=== PATIENT | male | born 1965 | race Caucasian/White ===

== ENCOUNTER 2018-10-27 12:39 | Inpatient (IN) | payer BC ==
[~2018-10-27] VITALS: Ht 193 cm; Wt 111.2 kg
[2018-10-27] MEDS ORDERED: IPRATRPIUM/ALBUTEROL 0.5/2.5MG 3 ML NEBU. NEB ONE (14:00)
[2018-10-27] MEDS ORDERED: methylPREDNISolone SOD SUCC PF 125 MG/2 ML VIAL. IV ONE (14:00)
[2018-10-27 14:14] LABS: BASO # 0.1 x10^3/uL (0.0-0.2); BASO % 1 % (0-3); EOS % 0 % (0-3); HEMATOCRIT 36.1 % (39.0-53.0); HEMOGLOBIN 11.8 g/dL (13.0-17.5); LYMPH # 0.2 x10^3/uL (1.0-4.8); LYMPH % 3 % (24-48); MEAN CORPUSCULAR HEMOGLOBIN 26 pg (25-35); MEAN CORPUSCULAR HGB CONC 33 g/dL (31-37); MEAN CORPUSCULAR VOLUME 81 fL (79-100); MONO # 0.1 x10^3/uL (0.0-1.1); MONO % 2 % (0-9); NEUT # 8.7 x10^3uL (1.8-7.7); NEUT % 95 % (31-73); PLATELET COUNT 203 x10^3/uL (140-400); RED BLOOD COUNT 4.49 x10^6/uL (4.30-5.70); RED CELL DISTRIBUTION WIDTH 17.6 % (11.5-14.5); WHITE BLOOD COUNT 9.2 x10^3/uL (4.0-11.0)
[2018-10-27] MEDS ORDERED: LABETALOL 20 MG/4 ML DISP.SYRIN. IVP ONE ×2 (14:15→18:15)
[2018-10-27 14:23] LABS: PROTHROMBIN TIME PATIENT 12.4 SEC (11.7-14.0)
[2018-10-27 14:30] LABS: CALCIUM 9.2 mg/dL (8.5-10.1); CREATININE 0.9 mg/dL (0.7-1.3); GFR 87.6; POTASSIUM 3.6 mmol/L (3.5-5.1)
--- NOTE | 2018-10-27 14:32 | RAD ---
EXAM: Chest, single view. HISTORY: Difficulty breathing. Chest pain. COMPARISON: None. FINDINGS: A frontal view of the chest obtained. There is elevation of the right hemidiaphragm and suspected right basilar compressive atelectasis. There is no consolidation, pleural effusion or pneumothorax. The heart is normal in size. There is internal fixation of a left clavicle fracture. There is a healed right rib fracture. IMPRESSION: 1. Elevation of the right hemidiaphragm with suspected right basilar compressive atelectasis. 2. No acute pulmonary finding. Electronically signed by: Viri Mcdaniels MD (10/27/2018 2:29 PM) [place] [id number]
[2018-10-27 14:35] LABS: % BANDS 20 % (0-9); % EOS 1 % (0-5); % LYMPHS 2 % (24-48); % MONOS 1 % (0-10); % SEGS 76 % (35-66); ALBUMIN 3.7 g/dL (3.4-5.0); ALBUMIN/GLOBULIN RATIO 0.8 (1.0-1.7); MAGNESIUM 1.8 mg/dL (1.8-2.4); PLT ESTIMATE ADEQUATE (ADEQUATE); TOTAL BILIRUBIN 0.9 mg/dL (0.2-1.0); TOTAL PROTEIN 8.6 g/dL (6.4-8.2)
[2018-10-27 14:38] LABS: ANISOCYTOSIS SLIGHT
[2018-10-27] MEDS ORDERED: IV NORMAL SALINE 1000ML BAG 1,000 ML IV ONE ×3 (15:00→17:00)
--- NOTE | 2018-10-27 15:40 | EKG ---
[facility] [address] [place] [address] Test Date: 2018-10-27 Test Time: 14:07:13 Pat Name: TACHO VILLATORO Department: Room: Gender: M Visual Merchandising Associate: IZZY : 1965 Requested By: ZACHARY PRATT Order Number: [id number] Reading MD: Kamar Harris Measurements Intervals [place] Rate: 125 P: -93 [place]: 170 QRS: -83 QRSD: 92 T: 22 QT: 304 QTc: 441 Interpretive Statements SINUS TACHYCARDIA ABNORMAL LEFT AXIS DEVIATION INCOMPLETE RIGHT BUNDLE BRANCH BLOCK QRS(T) CONTOUR ABNORMALITY CONSISTENT WITH INFERIOR INFARCT PROBABLY OLD ABNORMAL ECG Electronically Signed On 11-03-2018 12:59:58 CDT by Kamar Harris
[2018-10-27 15:47] LABS: BASE EXCESS ABG -1 mmol/L (-3-3); HCO3 ABG 21 mmol/L (21-28); PCO2 ABG 27 mmHg (35-46); PO2 ABG 69 mmHg (75-108); SAT O2 ABG 94 % (92-99)
[2018-10-27 15:48] LABS: FIO2 ABG 32% NC
[2018-10-27] MEDS ORDERED: cefTRIAXone IV Push 1 GM VIAL. IVP ONE (16:00)
[2018-10-27] MEDS ORDERED: VANCOMYCIN PER PHARMACY MC PRN (16:00)
[2018-10-27] MEDS ORDERED: VANCOMYCIN 2 GM in IV NORMAL SALINE 500ML BAG 500 ML IV ONE (16:30)
[2018-10-27] MEDS ORDERED: IOHEXOL 350 MG/ML 100 ML VIAL. IV ONE (16:45)
[2018-10-27] MEDS ORDERED: CONTRAST GIVEN. MC PRN (16:45)
[2018-10-27] MEDS ORDERED: MORPHINE SULFATE 2 MG/ML VIAL. IV PRN (17:00)
[2018-10-27] MEDS ORDERED: ONDANSETRON PF 4 MG/2 ML VIAL. IV PRN (17:00)
--- NOTE | 2018-10-27 17:30 | RAD ---
Chest CTA History: Shortness of breath for one week Technique: After bolus of intravenous contrast, CT imaging was performed of the chest. Multiplanar reconstruction images to include MIP reconstruction images are submitted. Exposure: One or more of the following individualized dose reduction techniques were utilized for this examination: 1. Automated exposure control 2. Adjustment of the mA and/or kV according to patient size 3. Use of iterative reconstruction technique. Comparison: None Findings: [ ] There is some motion. There is suboptimal contrast opacification of the more distal and smaller pulmonary arteries. No central pulmonary embolism is identified such as of the main pulmonary arteries or proximal segmental branches. There is some coronary calcification. Ascending thoracic aorta is somewhat ectatic about 3.7 cm. There is no pleural or pericardial effusion. There is mild infiltrate of the right lower lobe. There are some small mediastinal nodes. There is diffuse hepatic steatosis. There is degree of elevation of the right hemidiaphragm. There is mild perihilar bronchial wall thickening. There may be right renal calculi, more dense than would be expected at this phase of injection. Impression: 1. No central pulmonary embolism is identified, somewhat limited evaluation for smaller and more peripheral emboli on this exam. 2. There is mild right lower lobe infiltrate. There is mild perihilar bronchial wall thickening, can be seen with bronchitis. 3. There is some coronary calcification. 4. There is slightly ectatic ascending thoracic aorta about 3.7 cm. 5. There is diffuse hepatic steatosis. 6. There may be right renal calculi. Electronically signed by: Narendra Jorgensen MD (10/27/2018 5:27 PM) [facility]
--- NOTE | 2018-10-27 18:07 | PHYS DOC ---
Past Medical History Past Medical History: Hypertension, Other Additional Past Medical Histor: SEASONAL ALLERGIES Past Surgical History: Other Additional Past Surgical Histo: SHOULDER,R ANKLE FUSION,HERNIA Alcohol Use: Occasionally Drug Use: None Adult General Chief Complaint Chief Complaint: SHORTNESS OF BREATH HPI HPI Patient is a 53 year old male with history of hypertension who presents to the ED today complaining of shortness of breath that has been going on for one week with cough patient denies any fever. Denies any history of smoking. He states he does not have a PCP and never follows up with his hypertension. He states the last time he took blood pressure medication was 1 year ago. He states his lungs hurt when he coughs. Review of Systems Review of Systems Constitutional: Denies fever or chills [] Eyes: Denies change in visual acuity, redness, or eye pain [] HENT: Denies nasal congestion or sore throat [] Respiratory: Reports cough and shortness of breath Cardiovascular: No additional information not addressed in HPI [] GI: Denies abdominal pain, nausea, vomiting, bloody stools or diarrhea [] : Denies dysuria or hematuria [] Musculoskeletal: Denies back pain or joint pain [] Integument: Denies rash or skin lesions [] Neurologic: Denies headache, focal weakness or sensory changes [] All other systems were reviewed and found to be within normal limits, except as documented in this note. Current Medications Current Medications Current Medications Medications (Trade) Dose Ordered Sig/Jennifer Start Time Stop Time Status Last Admin Dose Admin Albuterol/ Ipratropium (Duoneb) 3 ml 1X ONCE 10/27/18 14:00 10/27/18 14:01 DC 10/27/18 14:03 3 ML Ceftriaxone Sodium (Rocephin) 1 gm 1X ONCE 10/27/18 16:00 10/27/18 16:01 DC 10/27/18 16:03 1 GM Doxycycline Hyclate (Vibra-Tab) 100 mg BID 10/27/18 21:00 Info (CONTRAST GIVEN -- Rx MONITORING) 1 each PRN DAILY PRN 10/27/18 16:45 10/29/18 16:44 Iohexol (Omnipaque 350 Mg/ml) 100 ml 1X ONCE 10/27/18 16:45 10/27/18 16:46 DC 10/27/18 16:54 100 ML Labetalol HCl (Normodyne Iv Push) 10 mg 1X ONCE 10/27/18 14:15 10/27/18 14:16 DC 10/27/18 14:34 10 MG Methylprednisolone Sodium Succinate (SOLU-Medrol 125MG VIAL) 125 mg 1X ONCE 10/27/18 14:00 10/27/18 14:01 DC 10/27/18 14:10 125 MG Morphine Sulfate (Morphine Sulfate) 2 mg PRN Q2HR PRN 10/27/18 17:00 10/28/18 16:59 Ondansetron HCl (Zofran) 4 mg PRN Q8HRS PRN 10/27/18 17:00 10/28/18 16:59 Sodium Chloride 1,000 ml @ 125 mls/hr 1X ONCE 10/27/18 17:00 10/28/18 00:59 Vancomycin HCl (Vanco Per Pharmacy) 1 each PRN DAILY PRN 10/27/18 16:00 UNV Vancomycin HCl 2 gm/Sodium Chloride 500 ml @ 250 mls/hr 1X ONCE 10/27/18 16:30 10/27/18 18:29 10/27/18 16:02 250 MLS/HR Allergies Allergies Allergies Coded Allergies Type Severity Reaction Last Updated Verified clarithromycin Allergy Intermediate 10/27/18 Yes Physical Exam Physical Exam Constitutional: Well developed, well nourished, no acute distress, non-toxic appearance. [] HENT: Normocephalic, atraumatic, bilateral external ears normal, oropharynx moist, no oral exudates, nose normal. [] Eyes: PERRLA, EOMI, conjunctiva normal, no discharge. [] Neck: Normal range of motion, no tenderness, supple, no stridor. [] Cardiovascular:Heart rate regular rhythm, no murmur [] Lungs & Thorax: Diminished breath sounds on arrival to the ED. O2 sats were 88 on room air, patient was placed on oxygen 2 L. Abdomen: Bowel sounds normal, soft, no tenderness, no masses, no pulsatile masses. [] Skin: Warm, dry, no erythema, no rash. [] Back: No tenderness, no CVA tenderness. [] Extremities: No tenderness, no cyanosis, no clubbing, ROM intact, no edema. [] Neurologic: Alert and oriented X 3, normal motor function, normal sensory function, no focal deficits noted. [] Psychologic: Affect normal, judgement normal, mood normal. [] Current Patient Data Vital Signs Vital Signs Date Time Temp Pulse Resp B/P (MAP) Pulse Ox O2 Delivery O2 Flow Rate FiO2 10/27/18 16:18 98 21 203/98 (133) 92 Nasal Cannula 3.0 10/27/18 13:49 98.9 98.9 Lab Values Laboratory Tests Test 10/27/18 13:57 10/27/18 15:45 White Blood Count 9.2 x10^3/uL (4.0-11.0) Red Blood Count 4.49 x10^6/uL (4.30-5.70) Hemoglobin 11.8 g/dL (13.0-17.5) L Hematocrit 36.1 % (39.0-53.0) L Mean Corpuscular Volume 81 fL (79-100) Mean Corpuscular Hemoglobin 26 pg (25-35) Mean Corpuscular Hemoglobin Concent 33 g/dL (31-37) Red Cell Distribution Width 17.6 % (11.5-14.5) H Platelet Count 203 x10^3/uL (140-400) Neutrophils (%) (Auto) 95 % (31-73) H Lymphocytes (%) (Auto) 3 % (24-48) L Monocytes (%) (Auto) 2 % (0-9) Eosinophils (%) (Auto) 0 % (0-3) Basophils (%) (Auto) 1 % (0-3) Neutrophils # (Auto) 8.7 x10^3uL (1.8-7.7) H Lymphocytes # (Auto) 0.2 x10^3/uL (1.0-4.8) L Monocytes # (Auto) 0.1 x10^3/uL (0.0-1.1) Eosinophils # (Auto) 0.0 x10^3/uL (0.0-0.7) Basophils # (Auto) 0.1 x10^3/uL (0.0-0.2) Segmented Neutrophils % 76 % (35-66) H Band Neutrophils % 20 % (0-9) H Lymphocytes % 2 % (24-48) L Monocytes % 1 % (0-10) Eosinophils % 1 % (0-5) Platelet Estimate Adequate (ADEQUATE) Anisocytosis Slight Prothrombin Time 12.4 SEC (11.7-14.0) Prothrombin Time INR 1.0 (0.8-1.1) D-Dimer (Marilin) 1.23 ug/mlFEU (0.00-0.50) H Sodium Level 128 mmol/L (136-145) L Potassium Level 3.6 mmol/L (3.5-5.1) Chloride Level 88 mmol/L (98-107) L Carbon Dioxide Level 25 mmol/L (21-32) Anion Gap 15 (6-14) H Blood Urea Nitrogen 6 mg/dL (8-26) L Creatinine 0.9 mg/dL (0.7-1.3) Estimated GFR (Cockcroft-Gault) 87.6 BUN/Creatinine Ratio 7 (6-20) Glucose Level 125 mg/dL (70-99) H Lactic Acid Level 2.6 mmol/L (0.4-2.0) H Calcium Level 9.2 mg/dL (8.5-10.1) Magnesium Level 1.8 mg/dL (1.8-2.4) Total Bilirubin 0.9 mg/dL (0.2-1.0) Aspartate Amino Transferase (AST) 252 U/L (15-37) H Alanine Aminotransferase (ALT) 138 U/L (16-63) H Alkaline Phosphatase 115 U/L (46-116) Creatine Kinase 326 U/L (39-308) H Creatine Kinase MB (Mass) 0.9 ng/mL (0.0-3.6) Creatine Kinase MB Relative Index 0.3 % (0-4) Troponin I Quantitative < 0.017 ng/mL (0.000-0.055) AI-Don-F-Type Natriuretic Peptide 440 pg/mL (0-124) H Total Protein 8.6 g/dL (6.4-8.2) H Albumin 3.7 g/dL (3.4-5.0) Albumin/Globulin Ratio 0.8 (1.0-1.7) L Thyroid Stimulating Hormone (TSH) 2.018 uIU/mL (0.358-3.74) O2 Saturation 94 % (92-99) Arterial Blood pH 7.51 (7.35-7.45) H Arterial Blood pCO2 at Patient Temp 27 mmHg (35-46) L Arterial Blood pO2 at Patient Temp 69 mmHg (75-108) L Arterial Blood HCO3 21 mmol/L (21-28) Arterial Blood Base Excess -1 mmol/L (-3-3) FiO2 32% nc Laboratory Tests 10/27/18 13:57 Laboratory Tests 10/27/18 13:57 EKG EKG 14:09 intepreted by Hung Chan sinus tachycardia HR 125 no STEMI[] Radiology/Procedures Radiology/Procedures []PROCEDURE: CT ANGIOGRAPHY CHEST Chest CTA History: Shortness of breath for one week Technique: After bolus of intravenous contrast, CT imaging was performed of the chest. Multiplanar reconstruction images to include MIP reconstruction images are submitted. Exposure: One or more of the following individualized dose reduction techniques were utilized for this examination: 1. Automated exposure control 2. Adjustment of the mA and/or kV according to patient size 3. Use of iterative reconstruction technique. Comparison: None Findings: [ ] There is some motion. There is suboptimal contrast opacification of the more distal and smaller pulmonary arteries. No central pulmonary embolism is identified such as of the main pulmonary arteries or proximal segmental branches. There is some coronary calcification. Ascending thoracic aorta is somewhat ectatic about 3.7 cm. There is no pleural or pericardial effusion. There is mild infiltrate of the right lower lobe. There are some small mediastinal nodes. There is diffuse hepatic steatosis. There is degree of elevation of the right hemidiaphragm. There is mild perihilar bronchial wall thickening. There may be right renal calculi, more dense than would be expected at this phase of injection. Impression: 1. No central pulmonary embolism is identified, somewhat limited evaluation for smaller and more peripheral emboli on this exam. 2. There is mild right lower lobe infiltrate. There is mild perihilar bronchial wall thickening, can be seen with bronchitis. 3. There is some coronary calcification. 4. There is slightly ectatic ascending thoracic aorta about 3.7 cm. 5. There is diffuse hepatic steatosis. 6. There may be right renal calculi. Electronically signed by: Dajuan Jorgensen MD (10/27/2018 5:27 PM) [facility] DICTATED and SIGNED BY: DAJUAN JORGENSEN MD DATE: 10/27/18 4423 Course & Med Decision Making Course & Med Decision Making Pertinent Labs and Imaging studies reviewed. (See chart for details) This is a 53-year-old male patient presenting to the ED today complaining of shortness of breath and a cough that began a week ago. On arrival to the ED patient was short of air with O2 sats 88% on room air. Patient was placed on oxygen 2 L. O2 sats of 93%. Given a DuoNeb treatment. CBC with a normal WBC, hemoglobin 11.8 hematocrit 36.0, CMP with sodium of 128, patient is alert oriented, following directions well, was started on normal saline, glucose 125, anion gap is 15, AST 252 ALT 138, patient denies any abdominal pain though we ordered an ultrasound of the abdomen. Chest x-ray was negative for any acute findings, d-dimer was 1.23, CTA chest was done, negative for PE, noted for right lower lobe infiltrate. Lactic 2.6. Blood cultures were also drawn. IV fluids continued, patient started on Rocephin and vancomycin. Spoke with Dr. Maciel who accepted patient for admission. Temperature not arrival to the ED 98.9, blood pressure 221/124 with a heart rate in the 130s. Patient was also given labetalol. He has history of uncontrolled hypertension. He has no headache. Spoke with Dr. Wallace regarding patient's hyponatremia. She will follow-up with patient. Dragon Disclaimer Dragon Disclaimer This electronic medical record was generated, in whole or in part, using a voice recognition dictation system. Departure Departure Impression: Primary Impression: Right lower lobe pneumonia Additional Impressions: Shortness of breath Hyponatremia Tachycardia Hypertension Disposition: 09 ADMITTED INPATIENT Condition: STABLE Referrals: Maryam DASILVA MD (PCP) Problem Qualifiers Primary Impression: Right lower lobe pneumonia Pneumonia type: due to unspecified organism Qualified Codes: J18.1 - Lobar pneumonia, unspecified organism Additional Impressions: Hypertension Hypertension type: unspecified Qualified Codes: I10 - Essential (primary) hypertension ZACHARY PRATT [employer] Oct 27, 2018 18:06
[2018-10-27] MEDS ORDERED: cloNIDine HCL 0.1 MG TABLET ONE (18:12)
[2018-10-27] MEDS ORDERED: cloNIDine HCL 0.1 MG TABLET PO ONE (18:15)
[2018-10-27 18:27] LABS: BILIRUBIN,URINE NEGATIVE (NEG); CLARITY,URINE CLEAR; COLOR,URINE YELLOW; NITRITE,URINE NEGATIVE (NEG); PH,URINE 7.5; PROTEIN,URINE NEGATIVE (NEG-TRACE); UROBILINOGEN,URINE 0.2 mg/dL (0.2 mg/dL)
[2018-10-27 18:33] LABS: BACTERIA,URINE 0 /HPF (0-FEW); RBC,URINE 0 /HPF (0-2); WBC,URINE 0 /HPF (0-4)
--- NOTE | 2018-10-27 18:39 | NUR ---
Pharmacy Vancomycin Dosing Note S:Consulted to monitor and dose vancomycin started 10/27/18. O:TACHO VILLATORO is a 53 year old M with Pneumonia Height: 6 feet, 4 inches Weight: 113.4 kg [place] Body Weight: 86.80 Adjusted Body Weight: 97.44 Dosing Weight: Actual LABS: Last BUN: 6 Last Creatinine: 0.9 Creatinine Clearance: >100 mL/min Last WBC: 9.2 Last Procalcitonin: Tmax (past 24 hours): 98.9 I/O: 2000/500 Last dose given 10/27/18 at 1604 Vancomycin Dosing: Loading Dose: 2000 mg x1 Dosing Weight: Actual Target Trough: 15-20 A: Based on: weight and renal function P: 1. Begin Vancomycin 2000 mg IV q12h 2. Follow up Trough level on 10/29/18 at 0330 3. Pharmacy will continue to monitor, follow and adjust therapy as needed. Marysol Lagunas [facility], 10/27/18 [id number]
[2018-10-27 18:45] VITALS: BP 224/110
[2018-10-27] MEDS: IV NORMAL SALINE 1000ML BAG 1,000 ML IV SCH (19:00)
[2018-10-27 19:30] VITALS: BP 180/108
[2018-10-27] MEDS ORDERED: GABA300C18 PO (20:12)
[2018-10-27] MEDS ORDERED: LOSA100T14 PO (20:12)
[2018-10-27] MEDS ORDERED: CARV25TA PO (20:12)
[2018-10-27] MEDS: DOXYCYCLINE HYCLATE 100 MG TABLET PO SCH (20:56)
[2018-10-27] MEDS: cloNIDine HCL 0.1 MG TABLET PO PRN (20:57)
[2018-10-27] MEDS ORDERED: DOXYCYCLINE HYCLATE 100 MG TABLET PO SCH (21:00)
--- NOTE | 2018-10-27 21:13 | PDOC1 ---
History and Physical Date of Admission Date of Admission DATE: 10/27/18 TIME: 20:57 Identification/Chief Complaint Chief Complaint sob Problems: (1) Shortness of breath (2) Right lower lobe pneumonia Source Source: Patient History of Present Illness History of Present Illness 53 year old male with history of hypertension not currently taking meds who presents with SOB on exertion and at rest with associated cough and congestion. patient does not have a PCP. does not take BP meds anymore, last took over a year ago. reports decreased PO intake. no nausea vomiting diarrhea. denies hx of COPD or CHF. scheduled for Left Hip sx 11/[address] chest concerning for PNA. also found to have elevated BNP 440 hospitalist called for admission Past Medical History Past Medical History HTN, untreated Past Surgical History Past Surgical History denies Family History Family History denies Social History Smoke: No ALCOHOL: none Drugs: None Current Problem List Problem List Problems Medical Problems: (1) Hypertension Status: Acute (2) Hyponatremia Status: Acute (3) Right lower lobe pneumonia Status: Acute (4) Shortness of breath Status: Acute (5) Tachycardia Status: Acute Current Medications Current Medications Current Medications Albuterol/ Ipratropium (Duoneb) 3 ml 1X ONCE NEB Last administered on at 14:03; Start 10/27/18 at 14:00; Stop 10/27/18 at 14:01; Status DC Methylprednisolone Sodium Succinate (SOLU-Medrol 125MG VIAL) 125 mg 1X ONCE IV Last administered on 10/27/18at 14:10; Start 10/27/18 at 14:00; Stop 10/27/18 at 14:01; Status DC Labetalol HCl (Normodyne Iv Push) 10 mg 1X ONCE IVP Last administered on at 14:34; Start 10/27/18 at 14:15; Stop 10/27/18 at 14:16; Status DC Sodium Chloride 1,000 ml @ 1,000 mls/hr 1X ONCE IV Last administered on at 15:20; Start 10/27/18 at 15:00; Stop 10/27/18 at 15:59; Status DC Sodium Chloride 1,000 ml @ 1,000 mls/hr 1X ONCE IV Last administered on at 16:01; Start 10/27/18 at 15:45; Stop 10/27/18 at 16:44; Status DC Vancomycin HCl (Vanco Per Pharmacy) 1 each PRN DAILY PRN MC SEE COMMENTS Last administered on 10/27/18at 18:37; Start 10/27/18 at 16:00 Ceftriaxone Sodium (Rocephin) 1 gm 1X ONCE IVP Last administered on 10/27/18at 16:03; Start 10/27/18 at 16:00; Stop 10/27/18 at 16:01; Status DC Vancomycin HCl 2 gm/Sodium Chloride 500 ml @ 250 mls/hr 1X ONCE IV Last administered on 10/27/18at 16:02; Start 10/27/18 at 16:30; Stop 10/27/18 at 18:29 ; Status DC Doxycycline Hyclate (Vibra-Tab) 100 mg BID PO ; Start 10/27/18 at 21:00 Iohexol (Omnipaque 350 Mg/ml) 100 ml 1X ONCE IV Last administered on at 16:54; Start 10/27/18 at 16:45; Stop 10/27/18 at 16:46; Status DC Info (CONTRAST GIVEN -- Rx MONITORING) 1 each PRN DAILY PRN MC SEE COMMENTS; Start 10/27/18 at 16:45; Stop 10/29/18 at 16:44 Ondansetron HCl (Zofran) 4 mg PRN Q8HRS PRN IV NAUSEA/VOMITING; Start 10/27/18 at 17:00; Stop 10/28/18 at 16:59 Morphine Sulfate (Morphine Sulfate) 2 mg PRN Q2HR PRN IV PAIN; Start 10/27/18 at 17:00; Stop 10/28/18 at 16:59 Sodium Chloride 1,000 ml @ 125 mls/hr 1X ONCE IV ; Start 10/27/18 at 17:00; Stop 10/28/18 at 00:59 Labetalol HCl (Normodyne Iv Push) 10 mg 1X ONCE IVP Last administered on at 18:15; Start 10/27/18 at 18:15; Stop 10/27/18 at 18:16; Status DC Clonidine HCl (Catapres) 0.1 mg 1X ONCE PO Last administered on 10/27/18at 18: 15; Start 10/27/18 at 18:15; Stop 10/27/18 at 18:16; Status DC Clonidine HCl (Catapres) 0.1 mg PRN Q8HRS PRN PO HYPERTENSION, SEE COMMENTS; Start 10/27/18 at 18:15 Clonidine HCl (Catapres) 0.1 mg STK-MED ONCE .ROUTE ; Start 10/27/18 at 18:12; Stop 10/27/18 at 18:13; Status DC Vancomycin HCl 2 gm/Sodium Chloride 500 ml @ 250 mls/hr Q12H IV ; Start at 04:00 Vancomycin HCl (Vancomycin Trough Level) 1 each 1X ONCE MC ; Start 10/29/18 at 03:30; Stop 10/29/18 at 03:31 Sodium Chloride 1,000 ml @ 100 mls/hr Q10H IV Last administered on 10/27/18at 19:00; Start 10/27/18 at 19:00 Heparin Sodium (Porcine) (Heparin Sodium) 5,000 unit Q8HRS SQ ; Start 10/27/18 at 22:00; Status UNV Active Scripts Active Reported Coreg (Carvedilol) 25 Mg Tablet 12.5 Mg PO BIDWMEALS Losartan Potassium 100 Mg Tablet 100 Mg PO DAILY Gabapentin 300 Mg Capsule 300 Mg PO TID Allergies Allergies: Coded Allergies: clarithromycin (Verified Allergy, Intermediate, 10/27/18) ROS Review of System CONSTITUTIONAL: No fever or chills EYES: No recent changes SKIN: No rash or itching CARDIOVASCULAR: No chest pain, syncope, palpitations, or edema RESPIRATORY: No SOB or cough GASTROINTESTINAL: No nausea, vomiting or abdominal pain NEUROLOGICAL: No headaches or weakness ENDOCRINE: No cold or heat intolerance GENITOURINARY: No urgency or frequency of urination MUSCULOSKELETAL: No back pain or joint pain LYMPHATICS: No enlarged lymph nodes PSYCHIATRIC: No anxiety or depression Physical Exam Physical Exam GENERAL: No apparent distress. Alert and oriented. HEENT: Head normocephalic, atraumatic. NECK: Supple LUNGS: course bilaterally HEART: RRR, S1, S2 present, pulses intact ABDOMEN: Soft, positive bowel sounds. EXTREMITIES: No cyanosis or edema. NEUROLOGIC: Normal speech, normal tone PSYCHIATRIC: Normal affect, normal mood. SKIN: No ulceration. Vitals Vitals Vital Signs Date Time Temp Pulse Resp B/P (MAP) Pulse Ox O2 Delivery O2 Flow Rate FiO2 10/27/18 19:52 Nasal Cannula 3.0 10/27/18 19:30 82 180/108 (132) 10/27/18 18:45 98.1 20 93 98.1 Labs Labs Laboratory Tests Test 10/27/18 13:57 10/27/18 15:45 10/27/18 17:40 10/27/18 18:00 White Blood Count 9.2 x10^3/uL (4.0-11.0) Red Blood Count 4.49 x10^6/uL (4.30-5.70) Hemoglobin 11.8 g/dL (13.0-17.5) Hematocrit 36.1 % (39.0-53.0) Mean Corpuscular Volume 81 fL (79-100) Mean Corpuscular Hemoglobin 26 pg (25-35) Mean Corpuscular Hemoglobin Concent 33 g/dL (31-37) Red Cell Distribution Width 17.6 % (11.5-14.5) Platelet Count 203 x10^3/uL (140-400) Neutrophils (%) (Auto) 95 % (31-73) Lymphocytes (%) (Auto) 3 % (24-48) Monocytes (%) (Auto) 2 % (0-9) Eosinophils (%) (Auto) 0 % (0-3) Basophils (%) (Auto) 1 % (0-3) Neutrophils # (Auto) 8.7 x10^3uL (1.8-7.7) Lymphocytes # (Auto) 0.2 x10^3/uL (1.0-4.8) Monocytes # (Auto) 0.1 x10^3/uL (0.0-1.1) Eosinophils # (Auto) 0.0 x10^3/uL (0.0-0.7) Basophils # (Auto) 0.1 x10^3/uL (0.0-0.2) Segmented Neutrophils % 76 % (35-66) Band Neutrophils % 20 % (0-9) Lymphocytes % 2 % (24-48) Monocytes % 1 % (0-10) Eosinophils % 1 % (0-5) Platelet Estimate Adequate (ADEQUATE) Anisocytosis Slight Prothrombin Time 12.4 SEC (11.7-14.0) Prothromb Time International Ratio 1.0 (0.8-1.1) D-Dimer (Marilin) 1.23 ug/mlFEU (0.00-0.50) Sodium Level 128 mmol/L (136-145) Potassium Level 3.6 mmol/L (3.5-5.1) Chloride Level 88 mmol/L (98-107) Carbon Dioxide Level 25 mmol/L (21-32) Anion Gap 15 (6-14) Blood Urea Nitrogen 6 mg/dL (8-26) Creatinine 0.9 mg/dL (0.7-1.3) Estimated GFR (Cockcroft-Gault) 87.6 BUN/Creatinine Ratio 7 (6-20) Glucose Level 125 mg/dL (70-99) Lactic Acid Level 2.6 mmol/L (0.4-2.0) 1.5 mmol/L (0.4-2.0) Calcium Level 9.2 mg/dL (8.5-10.1) Magnesium Level 1.8 mg/dL (1.8-2.4) Total Bilirubin 0.9 mg/dL (0.2-1.0) Aspartate Amino Transf (AST/SGOT) 252 U/L (15-37) Alanine Aminotransferase (ALT/SGPT) 138 U/L (16-63) Alkaline Phosphatase 115 U/L (46-116) Creatine Kinase 326 U/L (39-308) Creatine Kinase MB (Mass) 0.9 ng/mL (0.0-3.6) Creatine Kinase MB Relative Index 0.3 % (0-4) Troponin I Quantitative < 0.017 ng/mL (0.000-0.055) EA-[id number]-Type Natriuretic Peptide 440 pg/mL (0-124) Total Protein 8.6 g/dL (6.4-8.2) Albumin 3.7 g/dL (3.4-5.0) Albumin/Globulin Ratio 0.8 (1.0-1.7) Thyroid Stimulating Hormone (TSH) 2.018 uIU/mL (0.358-3.74) O2 Saturation 94 % (92-99) Arterial Blood pH 7.51 (7.35-7.45) Arterial Blood pCO2 at Patient Temp 27 mmHg (35-46) Arterial Blood pO2 at Patient Temp 69 mmHg (75-108) Arterial Blood HCO3 21 mmol/L (21-28) Arterial Blood Base Excess -1 mmol/L (-3-3) FiO2 32% nc Urine Collection Type Unknown Urine Color Yellow Urine Clarity Clear Urine pH 7.5 Urine Specific [place] >=1.030 Urine Protein Negative mg/dL (NEG-TRACE) Urine Glucose (UA) 100 mg/dL (NEG) Urine Ketones (Stick) Trace mg/dL (NEG) Urine Blood Negative (NEG) Urine Nitrite Negative (NEG) Urine Bilirubin Negative (NEG) Urine Urobilinogen Dipstick 0.2 mg/dL (0.2 mg/dL) Urine Leukocyte Esterase Negative (NEG) Urine RBC 0 /HPF (0-2) Urine WBC 0 /HPF (0-4) Urine Bacteria 0 /HPF (0-FEW) Laboratory Tests Test 10/27/18 13:57 10/27/18 15:45 10/27/18 17:40 10/27/18 18:00 White Blood Count 9.2 x10^3/uL (4.0-11.0) Red Blood Count 4.49 x10^6/uL (4.30-5.70) Hemoglobin 11.8 g/dL (13.0-17.5) Hematocrit 36.1 % (39.0-53.0) Mean Corpuscular Volume 81 fL (79-100) Mean Corpuscular Hemoglobin 26 pg (25-35) Mean Corpuscular Hemoglobin Concent 33 g/dL (31-37) Red Cell Distribution Width 17.6 % (11.5-14.5) Platelet Count 203 x10^3/uL (140-400) Neutrophils (%) (Auto) 95 % (31-73) Lymphocytes (%) (Auto) 3 % (24-48) Monocytes (%) (Auto) 2 % (0-9) Eosinophils (%) (Auto) 0 % (0-3) Basophils (%) (Auto) 1 % (0-3) Neutrophils # (Auto) 8.7 x10^3uL (1.8-7.7) Lymphocytes # (Auto) 0.2 x10^3/uL (1.0-4.8) Monocytes # (Auto) 0.1 x10^3/uL (0.0-1.1) Eosinophils # (Auto) 0.0 x10^3/uL (0.0-0.7) Basophils # (Auto) 0.1 x10^3/uL (0.0-0.2) Segmented Neutrophils % 76 % (35-66) Band Neutrophils % 20 % (0-9) Lymphocytes % 2 % (24-48) Monocytes % 1 % (0-10) Eosinophils % 1 % (0-5) Platelet Estimate Adequate (ADEQUATE) Anisocytosis Slight Prothrombin Time 12.4 SEC (11.7-14.0) Prothromb Time International Ratio 1.0 (0.8-1.1) D-Dimer (Marilin) 1.23 ug/mlFEU (0.00-0.50) Sodium Level 128 mmol/L (136-145) Potassium Level 3.6 mmol/L (3.5-5.1) Chloride Level 88 mmol/L (98-107) Carbon Dioxide Level 25 mmol/L (21-32) Anion Gap 15 (6-14) Blood Urea Nitrogen 6 mg/dL (8-26) Creatinine 0.9 mg/dL (0.7-1.3) Estimated GFR (Cockcroft-Gault) 87.6 BUN/Creatinine Ratio 7 (6-20) Glucose Level 125 mg/dL (70-99) Lactic Acid Level 2.6 mmol/L (0.4-2.0) 1.5 mmol/L (0.4-2.0) Calcium Level 9.2 mg/dL (8.5-10.1) Magnesium Level 1.8 mg/dL (1.8-2.4) Total Bilirubin 0.9 mg/dL (0.2-1.0) Aspartate Amino Transf (AST/SGOT) 252 U/L (15-37) Alanine Aminotransferase (ALT/SGPT) 138 U/L (16-63) Alkaline Phosphatase 115 U/L (46-116) Creatine Kinase 326 U/L (39-308) Creatine Kinase MB (Mass) 0.9 ng/mL (0.0-3.6) Creatine Kinase MB Relative Index 0.3 % (0-4) Troponin I Quantitative < 0.017 ng/mL (0.000-0.055) XU-Sek-[id number]-Type Natriuretic Peptide 440 pg/mL (0-124) Total Protein 8.6 g/dL (6.4-8.2) Albumin 3.7 g/dL (3.4-5.0) Albumin/Globulin Ratio 0.8 (1.0-1.7) Thyroid Stimulating Hormone (TSH) 2.018 uIU/mL (0.358-3.74) O2 Saturation 94 % (92-99) Arterial Blood pH 7.51 (7.35-7.45) Arterial Blood pCO2 at Patient Temp 27 mmHg (35-46) Arterial Blood pO2 at Patient Temp 69 mmHg (75-108) Arterial Blood HCO3 21 mmol/L (21-28) Arterial Blood Base Excess -1 mmol/L (-3-3) FiO2 32% nc Urine Collection Type Unknown Urine Color Yellow Urine Clarity Clear Urine pH 7.5 Urine Specific [place] >=1.030 Urine Protein Negative mg/dL (NEG-TRACE) Urine Glucose (UA) 100 mg/dL (NEG) Urine Ketones (Stick) Trace mg/dL (NEG) Urine Blood Negative (NEG) Urine Nitrite Negative (NEG) Urine Bilirubin Negative (NEG) Urine Urobilinogen Dipstick 0.2 mg/dL (0.2 mg/dL) Urine Leukocyte Esterase Negative (NEG) Urine RBC 0 /HPF (0-2) Urine WBC 0 /HPF (0-4) Urine Bacteria 0 /HPF (0-FEW) VTE Prophylaxis Ordered VTE Prophylaxis Devices: Yes VTE Pharmacological Prophylaxi: Yes Assessment/Plan Assessment/Plan ASSESSMENT Acute Hypoxic Respiratory Failure Secondary to CAP, 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 uncontrolled and untreated BP check TTE check abdominal US check a1c check TSH repeat LFTS check acute viral panel dvt ppx: heparin full code Problem Qualifiers (1) Right lower lobe pneumonia: Pneumonia type: due to unspecified organism Qualified Codes: J18.1 - Lobar pneumonia, unspecified organism SILVIA WASHINGTON MD Oct 27, 2018 21:13
[2018-10-27] MEDS: GABAPENTIN 300 MG CAPSULE. PO SCH (21:20)
[2018-10-27] MEDS: HEPARIN for SUB-Q USE 5,000 UNIT/ML VIAL. SQ SCH (21:21)
--- NOTE | 2018-10-27 21:28 | RAD ---
Abdominal ultrasound complete: Reason for examination: Elevated liver function tests. Ultrasound examination of the abdomen was performed. Examination is compromised by the patient's large body habitus and inability to hold breath due to shortness of breath. The pancreas is not well visualized due to body habitus and bowel gas. The visualized portion of the proximal aorta measuring 1.8 cm in greatest dimension but the distal aorta is not visualized. The IVC is not well visualized. The liver shows diffuse fatty infiltration and appears to be enlarged measuring 18.3 cm in greatest dimension but no focal lesions are seen. Gallbladder shows no cholelithiasis, sludge or wall thickening. Common bile duct is normal in caliber 4.3 mm. The right kidney measures 11.9 x 5.4 x 4.7 cm in greatest dimension and shows some increased echogenicity with no mass or hydronephrosis evident. The left kidney measures 12.3 x 5.9 x 4.1 cm in greatest dimension and shows increased echogenicity with a tiny cysts seen but no hydronephrosis evident. The spleen is enlarged at 13.4 cm without a focal lesion. There is no free fluid present. IMPRESSION: Mild hepatosplenomegaly with fatty infiltration in the liver. No focal lesions in the liver or spleen. Echogenic kidneys with a small left renal cyst. Electronically signed by: Le Ellison MD (10/27/2018 9:25 PM) [facility]
[2018-10-27 22:45] VITALS: BP 170/98
[2018-10-27] MEDS ORDERED: ALBUTEROL SULFATE 2.5 MG/3 ML NEBU. ONE (23:48)
[2018-10-27] MEDS: ALBUTEROL SULFATE 2.5 MG/3 ML NEBU. NEB PRN (23:55)
[2018-10-28 01:41] LABS: CALCIUM 8.2 mg/dL (8.5-10.1); GFR 77.6; POTASSIUM 3.7 mmol/L (3.5-5.1)
[2018-10-28 02:50] VITALS: BP 170/90
[2018-10-28] MEDS ORDERED: VANCOMYCIN 2 GM in IV NORMAL SALINE 500ML BAG 500 ML IV SCH (04:00)
[2018-10-28] MEDS: IV NORMAL SALINE 1000ML BAG 1,000 ML IV SCH ×2 (04:00→16:29)
[2018-10-28 04:28] LABS: BASO % 0 % (0-3); EOS % 0 % (0-3); HEMATOCRIT 27.8 % (39.0-53.0); LYMPH # 0.4 x10^3/uL (1.0-4.8); LYMPH % 4 % (24-48); MEAN CORPUSCULAR HEMOGLOBIN 26 pg (25-35); MEAN CORPUSCULAR HGB CONC 33 g/dL (31-37); MEAN CORPUSCULAR VOLUME 80 fL (79-100); MONO # 0.9 x10^3/uL (0.0-1.1); MONO % 9 % (0-9); NEUT % 88 % (31-73); PLATELET COUNT 150 x10^3/uL (140-400); RED BLOOD COUNT 3.49 x10^6/uL (4.30-5.70); RED CELL DISTRIBUTION WIDTH 18.1 % (11.5-14.5); WHITE BLOOD COUNT 10.2 x10^3/uL (4.0-11.0)
[2018-10-28 04:40] LABS: ALBUMIN 2.8 g/dL (3.4-5.0); ALBUMIN/GLOBULIN RATIO 0.7 (1.0-1.7); CALCIUM 8.2 mg/dL (8.5-10.1); CREATININE 0.9 mg/dL (0.7-1.3); DIRECT BILIRUBIN 0.3 mg/dL (0.0-0.2); GFR 87.6; POTASSIUM 3.8 mmol/L (3.5-5.1); TOTAL BILIRUBIN 0.6 mg/dL (0.2-1.0); TOTAL PROTEIN 6.8 g/dL (6.4-8.2)
[2018-10-28] MEDS: HEPARIN for SUB-Q USE 5,000 UNIT/ML VIAL. SQ SCH ×3 (06:16→22:07)
[2018-10-28] MEDS: ALBUTEROL SULFATE 2.5 MG/3 ML NEBU. NEB PRN ×2 (06:23→12:07)
[2018-10-28 07:00] VITALS: BP 155/73
--- NOTE | 2018-10-28 07:42 | PDOC ---
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 uncontrolled and untreated BP check TTE check abdominal US check a1c check TSH repeat LFTS check acute viral panel dvt ppx: heparin full code History of Present Illness History of Present Illness 53 year old male with history of hypertension not currently taking meds who presents with SOB on exertion and at rest with associated cough and congestion. patient does not have a PCP. does not take BP meds anymore, last took over a year ago. reports decreased PO intake. no nausea vomiting diarrhea. denies hx of COPD or CHF. scheduled for Left Hip sx 11/[address] chest concerning for PNA. also found to have elevated BNP 440 Sodium improved today, feeling less short of breath. Transaminitis noted. He denies any CP. Vitals Vitals Vital Signs Date Time Temp Pulse Resp B/P (MAP) Pulse Ox O2 Delivery O2 Flow Rate FiO2 10/28/18 06:22 Nasal Cannula 3.0 10/28/18 02:50 97.7 69 20 170/90 (116) 94 97.7 Physical Exam General: Alert, Oriented X3, Cooperative Heart: Regular rate, Normal S1, Normal S2 Lungs: Wheezing, Crackles Abdomen: Normal bowel sounds, Soft Extremities: No clubbing, No cyanosis Skin: No rashes, No breakdown Labs LABS Laboratory Tests Test 10/27/18 13:57 10/27/18 15:45 10/27/18 17:40 10/27/18 18:00 White Blood Count 9.2 x10^3/uL (4.0-11.0) Red Blood Count 4.49 x10^6/uL (4.30-5.70) Hemoglobin 11.8 g/dL (13.0-17.5) Hematocrit 36.1 % (39.0-53.0) Mean Corpuscular Volume 81 fL (79-100) Mean Corpuscular Hemoglobin 26 pg (25-35) Mean Corpuscular Hemoglobin Concent 33 g/dL (31-37) Red Cell Distribution Width 17.6 % (11.5-14.5) Platelet Count 203 x10^3/uL (140-400) Neutrophils (%) (Auto) 95 % (31-73) Lymphocytes (%) (Auto) 3 % (24-48) Monocytes (%) (Auto) 2 % (0-9) Eosinophils (%) (Auto) 0 % (0-3) Basophils (%) (Auto) 1 % (0-3) Neutrophils # (Auto) 8.7 x10^3uL (1.8-7.7) Lymphocytes # (Auto) 0.2 x10^3/uL (1.0-4.8) Monocytes # (Auto) 0.1 x10^3/uL (0.0-1.1) Eosinophils # (Auto) 0.0 x10^3/uL (0.0-0.7) Basophils # (Auto) 0.1 x10^3/uL (0.0-0.2) Segmented Neutrophils % 76 % (35-66) Band Neutrophils % 20 % (0-9) Lymphocytes % 2 % (24-48) Monocytes % 1 % (0-10) Eosinophils % 1 % (0-5) Platelet Estimate Adequate (ADEQUATE) Anisocytosis Slight Prothrombin Time 12.4 SEC (11.7-14.0) Prothromb Time International Ratio 1.0 (0.8-1.1) D-Dimer (Marilin) 1.23 ug/mlFEU (0.00-0.50) Sodium Level 128 mmol/L (136-145) Potassium Level 3.6 mmol/L (3.5-5.1) Chloride Level 88 mmol/L (98-107) Carbon Dioxide Level 25 mmol/L (21-32) Anion Gap 15 (6-14) Blood Urea Nitrogen 6 mg/dL (8-26) Creatinine 0.9 mg/dL (0.7-1.3) Estimated GFR (Cockcroft-Gault) 87.6 BUN/Creatinine Ratio 7 (6-20) Glucose Level 125 mg/dL (70-99) Lactic Acid Level 2.6 mmol/L (0.4-2.0) 1.5 mmol/L (0.4-2.0) Calcium Level 9.2 mg/dL (8.5-10.1) Magnesium Level 1.8 mg/dL (1.8-2.4) Total Bilirubin 0.9 mg/dL (0.2-1.0) Aspartate Amino Transf (AST/SGOT) 252 U/L (15-37) Alanine Aminotransferase (ALT/SGPT) 138 U/L (16-63) Alkaline Phosphatase 115 U/L (46-116) Creatine Kinase 326 U/L (39-308) Creatine Kinase MB (Mass) 0.9 ng/mL (0.0-3.6) Creatine Kinase MB Relative Index 0.3 % (0-4) Troponin I Quantitative < 0.017 ng/mL (0.000-0.055) IE-Fgg-N-Type Natriuretic Peptide 440 pg/mL (0-124) Total Protein 8.6 g/dL (6.4-8.2) Albumin 3.7 g/dL (3.4-5.0) Albumin/Globulin Ratio 0.8 (1.0-1.7) Thyroid Stimulating Hormone (TSH) 2.018 uIU/mL (0.358-3.74) O2 Saturation 94 % (92-99) Arterial Blood pH 7.51 (7.35-7.45) Arterial Blood pCO2 at Patient Temp 27 mmHg (35-46) Arterial Blood pO2 at Patient Temp 69 mmHg (75-108) Arterial Blood HCO3 21 mmol/L (21-28) Arterial Blood Base Excess -1 mmol/L (-3-3) FiO2 32% nc Urine Collection Type Unknown Urine Color Yellow Urine Clarity Clear Urine pH 7.5 Urine Specific [place] >=1.030 Urine Protein Negative mg/dL (NEG-TRACE) Urine Glucose (UA) 100 mg/dL (NEG) Urine Ketones (Stick) Trace mg/dL (NEG) Urine Blood Negative (NEG) Urine Nitrite Negative (NEG) Urine Bilirubin Negative (NEG) Urine Urobilinogen Dipstick 0.2 mg/dL (0.2 mg/dL) Urine Leukocyte Esterase Negative (NEG) Urine RBC 0 /HPF (0-2) Urine WBC 0 /HPF (0-4) Urine Bacteria 0 /HPF (0-FEW) Test 10/27/18 23:00 10/27/18 23:15 10/28/18 04:00 Lactic Acid Level 2.4 mmol/L (0.4-2.0) 2.1 mmol/L (0.4-2.0) Hepatitis A IgM Antibody Nonreactive (Nonreactive) Hepatitis B Surface Antigen Nonreactive (Nonreactive) Hepatitis B Core IgM Antibody Nonreactive (Nonreactive) Hepatitis C IgG Antibody Nonreactive (Nonreactive) Sodium Level 125 mmol/L (136-145) 130 mmol/L (136-145) Potassium Level 3.7 mmol/L (3.5-5.1) 3.8 mmol/L (3.5-5.1) Chloride Level 90 mmol/L (98-107) 93 mmol/L (98-107) Carbon Dioxide Level 24 mmol/L (21-32) 27 mmol/L (21-32) Anion Gap 11 (6-14) 10 (6-14) Blood Urea Nitrogen 7 mg/dL (8-26) 7 mg/dL (8-26) Creatinine 1.0 mg/dL (0.7-1.3) 0.9 mg/dL (0.7-1.3) Estimated GFR (Cockcroft-Gault) 77.6 87.6 Glucose Level 219 mg/dL (70-99) 156 mg/dL (70-99) Calcium Level 8.2 mg/dL (8.5-10.1) 8.2 mg/dL (8.5-10.1) White Blood Count 10.2 x10^3/uL (4.0-11.0) Red Blood Count 3.49 x10^6/uL (4.30-5.70) Hemoglobin 9.0 g/dL (13.0-17.5) Hematocrit 27.8 % (39.0-53.0) Mean Corpuscular Volume 80 fL (79-100) Mean Corpuscular Hemoglobin 26 pg (25-35) Mean Corpuscular Hemoglobin Concent 33 g/dL (31-37) Red Cell Distribution Width 18.1 % (11.5-14.5) Platelet Count 150 x10^3/uL (140-400) Neutrophils (%) (Auto) 88 % (31-73) Lymphocytes (%) (Auto) 4 % (24-48) Monocytes (%) (Auto) 9 % (0-9) Eosinophils (%) (Auto) 0 % (0-3) Basophils (%) (Auto) 0 % (0-3) Neutrophils # (Auto) 9.0 x10^3uL (1.8-7.7) Lymphocytes # (Auto) 0.4 x10^3/uL (1.0-4.8) Monocytes # (Auto) 0.9 x10^3/uL (0.0-1.1) Eosinophils # (Auto) 0.0 x10^3/uL (0.0-0.7) Basophils # (Auto) 0.0 x10^3/uL (0.0-0.2) BUN/Creatinine Ratio 8 (6-20) Total Bilirubin 0.6 mg/dL (0.2-1.0) Direct Bilirubin 0.3 mg/dL (0.0-0.2) Aspartate Amino Transf (AST/SGOT) 122 U/L (15-37) Alanine Aminotransferase (ALT/SGPT) 87 U/L (16-63) Alkaline Phosphatase 93 U/L (46-116) Total Protein 6.8 g/dL (6.4-8.2) Albumin 2.8 g/dL (3.4-5.0) Albumin/Globulin Ratio 0.7 (1.0-1.7) Procalcitonin 0.35 ng/mL (0.00-0.10) Assessment and Plan Assessmemt and Plan Problems Medical Problems: (1) Hypertension Status: Acute (2) Hyponatremia Status: Acute (3) Right lower lobe pneumonia Status: Acute (4) Shortness of breath Status: Acute (5) Tachycardia Status: Acute Comment Review of Relevant I have reviewed the following items jason (where applicable) has been applied. Labs Laboratory Tests Test 10/27/18 13:57 10/27/18 15:45 10/27/18 17:40 10/27/18 18:00 White Blood Count 9.2 x10^3/uL (4.0-11.0) Red Blood Count 4.49 x10^6/uL (4.30-5.70) Hemoglobin 11.8 g/dL (13.0-17.5) Hematocrit 36.1 % (39.0-53.0) Mean Corpuscular Volume 81 fL (79-100) Mean Corpuscular Hemoglobin 26 pg (25-35) Mean Corpuscular Hemoglobin Concent 33 g/dL (31-37) Red Cell Distribution Width 17.6 % (11.5-14.5) Platelet Count 203 x10^3/uL (140-400) Neutrophils (%) (Auto) 95 % (31-73) Lymphocytes (%) (Auto) 3 % (24-48) Monocytes (%) (Auto) 2 % (0-9) Eosinophils (%) (Auto) 0 % (0-3) Basophils (%) (Auto) 1 % (0-3) Neutrophils # (Auto) 8.7 x10^3uL (1.8-7.7) Lymphocytes # (Auto) 0.2 x10^3/uL (1.0-4.8) Monocytes # (Auto) 0.1 x10^3/uL (0.0-1.1) Eosinophils # (Auto) 0.0 x10^3/uL (0.0-0.7) Basophils # (Auto) 0.1 x10^3/uL (0.0-0.2) Segmented Neutrophils % 76 % (35-66) Band Neutrophils % 20 % (0-9) Lymphocytes % 2 % (24-48) Monocytes % 1 % (0-10) Eosinophils % 1 % (0-5) Platelet Estimate Adequate (ADEQUATE) Anisocytosis Slight Prothrombin Time 12.4 SEC (11.7-14.0) Prothromb Time International Ratio 1.0 (0.8-1.1) D-Dimer (Marilin) 1.23 ug/mlFEU (0.00-0.50) Sodium Level 128 mmol/L (136-145) Potassium Level 3.6 mmol/L (3.5-5.1) Chloride Level 88 mmol/L (98-107) Carbon Dioxide Level 25 mmol/L (21-32) Anion Gap 15 (6-14) Blood Urea Nitrogen 6 mg/dL (8-26) Creatinine 0.9 mg/dL (0.7-1.3) Estimated GFR (Cockcroft-Gault) 87.6 BUN/Creatinine Ratio 7 (6-20) Glucose Level 125 mg/dL (70-99) Lactic Acid Level 2.6 mmol/L (0.4-2.0) 1.5 mmol/L (0.4-2.0) Calcium Level 9.2 mg/dL (8.5-10.1) Magnesium Level 1.8 mg/dL (1.8-2.4) Total Bilirubin 0.9 mg/dL (0.2-1.0) Aspartate Amino Transf (AST/SGOT) 252 U/L (15-37) Alanine Aminotransferase (ALT/SGPT) 138 U/L (16-63) Alkaline Phosphatase 115 U/L (46-116) Creatine Kinase 326 U/L (39-308) Creatine Kinase MB (Mass) 0.9 ng/mL (0.0-3.6) Creatine Kinase MB Relative Index 0.3 % (0-4) Troponin I Quantitative < 0.017 ng/mL (0.000-0.055) RP-Vmj-Q-Type Natriuretic Peptide 440 pg/mL (0-124) Total Protein 8.6 g/dL (6.4-8.2) Albumin 3.7 g/dL (3.4-5.0) Albumin/Globulin Ratio 0.8 (1.0-1.7) Thyroid Stimulating Hormone (TSH) 2.018 uIU/mL (0.358-3.74) O2 Saturation 94 % (92-99) Arterial Blood pH 7.51 (7.35-7.45) Arterial Blood pCO2 at Patient Temp 27 mmHg (35-46) Arterial Blood pO2 at Patient Temp 69 mmHg (75-108) Arterial Blood HCO3 21 mmol/L (21-28) Arterial Blood Base Excess -1 mmol/L (-3-3) FiO2 32% nc Urine Collection Type Unknown Urine Color Yellow Urine Clarity Clear Urine pH 7.5 Urine Specific [place] >=1.030 Urine Protein Negative mg/dL (NEG-TRACE) Urine Glucose (UA) 100 mg/dL (NEG) Urine Ketones (Stick) Trace mg/dL (NEG) Urine Blood Negative (NEG) Urine Nitrite Negative (NEG) Urine Bilirubin Negative (NEG) Urine Urobilinogen Dipstick 0.2 mg/dL (0.2 mg/dL) Urine Leukocyte Esterase Negative (NEG) Urine RBC 0 /HPF (0-2) Urine WBC 0 /HPF (0-4) Urine Bacteria 0 /HPF (0-FEW) Test 10/27/18 23:00 10/27/18 23:15 10/28/18 04:00 Lactic Acid Level 2.4 mmol/L (0.4-2.0) 2.1 mmol/L (0.4-2.0) Hepatitis A IgM Antibody Nonreactive (Nonreactive) Hepatitis B Surface Antigen Nonreactive (Nonreactive) Hepatitis B Core IgM Antibody Nonreactive (Nonreactive) Hepatitis C IgG Antibody Nonreactive (Nonreactive) Sodium Level 125 mmol/L (136-145) 130 mmol/L (136-145) Potassium Level 3.7 mmol/L (3.5-5.1) 3.8 mmol/L (3.5-5.1) Chloride Level 90 mmol/L (98-107) 93 mmol/L (98-107) Carbon Dioxide Level 24 mmol/L (21-32) 27 mmol/L (21-32) Anion Gap 11 (6-14) 10 (6-14) Blood Urea Nitrogen 7 mg/dL (8-26) 7 mg/dL (8-26) Creatinine 1.0 mg/dL (0.7-1.3) 0.9 mg/dL (0.7-1.3) Estimated GFR (Cockcroft-Gault) 77.6 87.6 Glucose Level 219 mg/dL (70-99) 156 mg/dL (70-99) Calcium Level 8.2 mg/dL (8.5-10.1) 8.2 mg/dL (8.5-10.1) White Blood Count 10.2 x10^3/uL (4.0-11.0) Red Blood Count 3.49 x10^6/uL (4.30-5.70) Hemoglobin 9.0 g/dL (13.0-17.5) Hematocrit 27.8 % (39.0-53.0) Mean Corpuscular Volume 80 fL (79-100) Mean Corpuscular Hemoglobin 26 pg (25-35) Mean Corpuscular Hemoglobin Concent 33 g/dL (31-37) Red Cell Distribution Width 18.1 % (11.5-14.5) Platelet Count 150 x10^3/uL (140-400) Neutrophils (%) (Auto) 88 % (31-73) Lymphocytes (%) (Auto) 4 % (24-48) Monocytes (%) (Auto) 9 % (0-9) Eosinophils (%) (Auto) 0 % (0-3) Basophils (%) (Auto) 0 % (0-3) Neutrophils # (Auto) 9.0 x10^3uL (1.8-7.7) Lymphocytes # (Auto) 0.4 x10^3/uL (1.0-4.8) Monocytes # (Auto) 0.9 x10^3/uL (0.0-1.1) Eosinophils # (Auto) 0.0 x10^3/uL (0.0-0.7) Basophils # (Auto) 0.0 x10^3/uL (0.0-0.2) BUN/Creatinine Ratio 8 (6-20) Total Bilirubin 0.6 mg/dL (0.2-1.0) Direct Bilirubin 0.3 mg/dL (0.0-0.2) Aspartate Amino Transf (AST/SGOT) 122 U/L (15-37) Alanine Aminotransferase (ALT/SGPT) 87 U/L (16-63) Alkaline Phosphatase 93 U/L (46-116) Total Protein 6.8 g/dL (6.4-8.2) Albumin 2.8 g/dL (3.4-5.0) Albumin/Globulin Ratio 0.7 (1.0-1.7) Procalcitonin 0.35 ng/mL (0.00-0.10) Laboratory Tests Test 10/27/18 13:57 10/27/18 15:45 10/27/18 17:40 10/27/18 18:00 White Blood Count 9.2 x10^3/uL (4.0-11.0) Red Blood Count 4.49 x10^6/uL (4.30-5.70) Hemoglobin 11.8 g/dL (13.0-17.5) Hematocrit 36.1 % (39.0-53.0) Mean Corpuscular Volume 81 fL (79-100) Mean Corpuscular Hemoglobin 26 pg (25-35) Mean Corpuscular Hemoglobin Concent 33 g/dL (31-37) Red Cell Distribution Width 17.6 % (11.5-14.5) Platelet Count 203 x10^3/uL (140-400) Neutrophils (%) (Auto) 95 % (31-73) Lymphocytes (%) (Auto) 3 % (24-48) Monocytes (%) (Auto) 2 % (0-9) Eosinophils (%) (Auto) 0 % (0-3) Basophils (%) (Auto) 1 % (0-3) Neutrophils # (Auto) 8.7 x10^3uL (1.8-7.7) Lymphocytes # (Auto) 0.2 x10^3/uL (1.0-4.8) Monocytes # (Auto) 0.1 x10^3/uL (0.0-1.1) Eosinophils # (Auto) 0.0 x10^3/uL (0.0-0.7) Basophils # (Auto) 0.1 x10^3/uL (0.0-0.2) Segmented Neutrophils % 76 % (35-66) Band Neutrophils % 20 % (0-9) Lymphocytes % 2 % (24-48) Monocytes % 1 % (0-10) Eosinophils % 1 % (0-5) Platelet Estimate Adequate (ADEQUATE) Anisocytosis Slight Prothrombin Time 12.4 SEC (11.7-14.0) Prothromb Time International Ratio 1.0 (0.8-1.1) D-Dimer (Marilin) 1.23 ug/mlFEU (0.00-0.50) Sodium Level 128 mmol/L (136-145) Potassium Level 3.6 mmol/L (3.5-5.1) Chloride Level 88 mmol/L (98-107) Carbon Dioxide Level 25 mmol/L (21-32) Anion Gap 15 (6-14) Blood Urea Nitrogen 6 mg/dL (8-26) Creatinine 0.9 mg/dL (0.7-1.3) Estimated GFR (Cockcroft-Gault) 87.6 BUN/Creatinine Ratio 7 (6-20) Glucose Level 125 mg/dL (70-99) Lactic Acid Level 2.6 mmol/L (0.4-2.0) 1.5 mmol/L (0.4-2.0) Calcium Level 9.2 mg/dL (8.5-10.1) Magnesium Level 1.8 mg/dL (1.8-2.4) Total Bilirubin 0.9 mg/dL (0.2-1.0) Aspartate Amino Transf (AST/SGOT) 252 U/L (15-37) Alanine Aminotransferase (ALT/SGPT) 138 U/L (16-63) Alkaline Phosphatase 115 U/L (46-116) Creatine Kinase 326 U/L (39-308) Creatine Kinase MB (Mass) 0.9 ng/mL (0.0-3.6) Creatine Kinase MB Relative Index 0.3 % (0-4) Troponin I Quantitative < 0.017 ng/mL (0.000-0.055) UT-Ltf-E-Type Natriuretic Peptide 440 pg/mL (0-124) Total Protein 8.6 g/dL (6.4-8.2) Albumin 3.7 g/dL (3.4-5.0) Albumin/Globulin Ratio 0.8 (1.0-1.7) Thyroid Stimulating Hormone (TSH) 2.018 uIU/mL (0.358-3.74) O2 Saturation 94 % (92-99) Arterial Blood pH 7.51 (7.35-7.45) Arterial Blood pCO2 at Patient Temp 27 mmHg (35-46) Arterial Blood pO2 at Patient Temp 69 mmHg (75-108) Arterial Blood HCO3 21 mmol/L (21-28) Arterial Blood Base Excess -1 mmol/L (-3-3) FiO2 32% nc Urine Collection Type Unknown Urine Color Yellow Urine Clarity Clear Urine pH 7.5 Urine Specific [place] >=1.030 Urine Protein Negative mg/dL (NEG-TRACE) Urine Glucose (UA) 100 mg/dL (NEG) Urine Ketones (Stick) Trace mg/dL (NEG) Urine Blood Negative (NEG) Urine Nitrite Negative (NEG) Urine Bilirubin Negative (NEG) Urine Urobilinogen Dipstick 0.2 mg/dL (0.2 mg/dL) Urine Leukocyte Esterase Negative (NEG) Urine RBC 0 /HPF (0-2) Urine WBC 0 /HPF (0-4) Urine Bacteria 0 /HPF (0-FEW) Test 10/27/18 23:00 10/27/18 23:15 10/28/18 04:00 Lactic Acid Level 2.4 mmol/L (0.4-2.0) 2.1 mmol/L (0.4-2.0) Hepatitis A IgM Antibody Nonreactive (Nonreactive) Hepatitis B Surface Antigen Nonreactive (Nonreactive) Hepatitis B Core IgM Antibody Nonreactive (Nonreactive) Hepatitis C IgG Antibody Nonreactive (Nonreactive) Sodium Level 125 mmol/L (136-145) 130 mmol/L (136-145) Potassium Level 3.7 mmol/L (3.5-5.1) 3.8 mmol/L (3.5-5.1) Chloride Level 90 mmol/L (98-107) 93 mmol/L (98-107) Carbon Dioxide Level 24 mmol/L (21-32) 27 mmol/L (21-32) Anion Gap 11 (6-14) 10 (6-14) Blood Urea Nitrogen 7 mg/dL (8-26) 7 mg/dL (8-26) Creatinine 1.0 mg/dL (0.7-1.3) 0.9 mg/dL (0.7-1.3) Estimated GFR (Cockcroft-Gault) 77.6 87.6 Glucose Level 219 mg/dL (70-99) 156 mg/dL (70-99) Calcium Level 8.2 mg/dL (8.5-10.1) 8.2 mg/dL (8.5-10.1) White Blood Count 10.2 x10^3/uL (4.0-11.0) Red Blood Count 3.49 x10^6/uL (4.30-5.70) Hemoglobin 9.0 g/dL (13.0-17.5) Hematocrit 27.8 % (39.0-53.0) Mean Corpuscular Volume 80 fL (79-100) Mean Corpuscular Hemoglobin 26 pg (25-35) Mean Corpuscular Hemoglobin Concent 33 g/dL (31-37) Red Cell Distribution Width 18.1 % (11.5-14.5) Platelet Count 150 x10^3/uL (140-400) Neutrophils (%) (Auto) 88 % (31-73) Lymphocytes (%) (Auto) 4 % (24-48) Monocytes (%) (Auto) 9 % (0-9) Eosinophils (%) (Auto) 0 % (0-3) Basophils (%) (Auto) 0 % (0-3) Neutrophils # (Auto) 9.0 x10^3uL (1.8-7.7) Lymphocytes # (Auto) 0.4 x10^3/uL (1.0-4.8) Monocytes # (Auto) 0.9 x10^3/uL (0.0-1.1) Eosinophils # (Auto) 0.0 x10^3/uL (0.0-0.7) Basophils # (Auto) 0.0 x10^3/uL (0.0-0.2) BUN/Creatinine Ratio 8 (6-20) Total Bilirubin 0.6 mg/dL (0.2-1.0) Direct Bilirubin 0.3 mg/dL (0.0-0.2) Aspartate Amino Transf (AST/SGOT) 122 U/L (15-37) Alanine Aminotransferase (ALT/SGPT) 87 U/L (16-63) Alkaline Phosphatase 93 U/L (46-116) Total Protein 6.8 g/dL (6.4-8.2) Albumin 2.8 g/dL (3.4-5.0) Albumin/Globulin Ratio 0.7 (1.0-1.7) Procalcitonin 0.35 ng/mL (0.00-0.10) Medications Current Medications Albuterol/ Ipratropium (Duoneb) 3 ml 1X ONCE NEB Last administered on at 14:03; Start 10/27/18 at 14:00; Stop 10/27/18 at 14:01; Status DC Methylprednisolone Sodium Succinate (SOLU-Medrol 125MG VIAL) 125 mg 1X ONCE IV Last administered on 10/27/18at 14:10; Start 10/27/18 at 14:00; Stop 10/27/18 at 14:01; Status DC Labetalol HCl (Normodyne Iv Push) 10 mg 1X ONCE IVP Last administered on at 14:34; Start 10/27/18 at 14:15; Stop 10/27/18 at 14:16; Status DC Sodium Chloride 1,000 ml @ 1,000 mls/hr 1X ONCE IV Last administered on at 15:20; Start 10/27/18 at 15:00; Stop 10/27/18 at 15:59; Status DC Sodium Chloride 1,000 ml @ 1,000 mls/hr 1X ONCE IV Last administered on at 16:01; Start 10/27/18 at 15:45; Stop 10/27/18 at 16:44; Status DC Vancomycin HCl (Vanco Per Pharmacy) 1 each PRN DAILY PRN MC SEE COMMENTS Last administered on 10/27/18at 18:37; Start 10/27/18 at 16:00 Ceftriaxone Sodium (Rocephin) 1 gm 1X ONCE IVP Last administered on 10/27/18at 16:03; Start 10/27/18 at 16:00; Stop 10/27/18 at 16:01; Status DC Vancomycin HCl 2 gm/Sodium Chloride 500 ml @ 250 mls/hr 1X ONCE IV Last administered on 10/27/18at 16:02; Start 10/27/18 at 16:30; Stop 10/27/18 at 18:29 ; Status DC Doxycycline Hyclate (Vibra-Tab) 100 mg BID PO Last administered on 10/27/18at 20 :56; Start 10/27/18 at 21:00 Iohexol (Omnipaque 350 Mg/ml) 100 ml 1X ONCE IV Last administered on at 16:54; Start 10/27/18 at 16:45; Stop 10/27/18 at 16:46; Status DC Info (CONTRAST GIVEN -- Rx MONITORING) 1 each PRN DAILY PRN MC SEE COMMENTS; Start 10/27/18 at 16:45; Stop 10/29/18 at 16:44 Ondansetron HCl (Zofran) 4 mg PRN Q8HRS PRN IV NAUSEA/VOMITING; Start 10/27/18 at 17:00; Stop 10/28/18 at 16:59 Morphine Sulfate (Morphine Sulfate) 2 mg PRN Q2HR PRN IV PAIN; Start 10/27/18 at 17:00; Stop 10/28/18 at 16:59 Sodium Chloride 1,000 ml @ 125 mls/hr 1X ONCE IV ; Start 10/27/18 at 17:00; Stop 10/28/18 at 00:59; Status DC Labetalol HCl (Normodyne Iv Push) 10 mg 1X ONCE IVP Last administered on at 18:15; Start 10/27/18 at 18:15; Stop 10/27/18 at 18:16; Status DC Clonidine HCl (Catapres) 0.1 mg 1X ONCE PO Last administered on 10/27/18at 18: 15; Start 10/27/18 at 18:15; Stop 10/27/18 at 18:16; Status DC Clonidine HCl (Catapres) 0.1 mg PRN Q8HRS PRN PO HYPERTENSION, SEE COMMENTS Last administered on 10/27/18at 20:57; Start 10/27/18 at 18:15 Clonidine HCl (Catapres) 0.1 mg STK-MED ONCE .ROUTE ; Start 10/27/18 at 18:12; Stop 10/27/18 at 18:13; Status DC Vancomycin HCl 2 gm/Sodium Chloride 500 ml @ 250 mls/hr Q12H IV Last administered on 10/28/18at 03:59; Start 10/28/18 at 04:00 Vancomycin HCl (Vancomycin Trough Level) 1 each 1X ONCE MC ; Start 10/29/18 at 03:30; Stop 10/29/18 at 03:31 Sodium Chloride 1,000 ml @ 100 mls/hr Q10H IV Last administered on 10/28/18at 04:00; Start 10/27/18 at 19:00 Heparin Sodium (Porcine) (Heparin Sodium) 5,000 unit Q8HRS SQ Last administered on 10/28/18at 06:16; Start 10/27/18 at 22:00 Gabapentin (Neurontin) 300 mg TID PO Last administered on 10/27/18at 21:20; Start 10/27/18 at 21:00 Carvedilol (Coreg) 12.5 mg BIDWMEALS PO ; Start 10/28/18 at 08:00 Ceftriaxone Sodium (Rocephin) 1 gm Q24H IVP ; Start 10/28/18 at 16:00 Doxycycline Hyclate (Vibra-Tab) 100 mg BID PO ; Start 10/27/18 at 21:00; Status UNV Lisinopril (Prinivil) 20 mg DAILY PO ; Start 10/28/18 at 09:00 Hydralazine HCl (Apresoline Inj) 10 mg PRN Q4HRS PRN IVP ELEVATED BP, SEE COMMENTS; Start 10/27/18 at 21:15 Albuterol Sulfate (Ventolin Neb Soln) 2.5 mg STK-MED ONCE .ROUTE ; Start at 23:48; Stop 10/28/18 at 00:52; Status DC Albuterol Sulfate (Ventolin Neb Soln) 2.5 mg PRN Q4HRS PRN NEB SHORTNESS OF BREATH Last administered on 10/28/18at 06:23; Start 10/27/18 at 23:00 Throat Lozenges (Cepacol Sore Throat Lozenge) 1 kaiser PRN Q2HRS PRN PO SORE THROAT; Start 10/28/18 at 05:00 Active Scripts Active Reported Coreg (Carvedilol) 25 Mg Tablet 12.5 Mg PO BIDWMEALS Losartan Potassium 100 Mg Tablet 100 Mg PO DAILY Gabapentin 300 Mg Capsule 300 Mg PO TID Vitals/I & O Vital Sign - Last 24 Hours 10/27/18 10/27/18 10/27/18 10/27/18 13:49 14:03 14:33 14:34 Temp 98.9 98.9 Pulse 135 128 129 Resp 24 21 B/P (MAP) 221/124 (156) 203/108 (139) 203/118 Pulse Ox 89 91 90 O2 Delivery Room Air Nasal Cannula O2 Flow Rate 2.0 2.0 10/27/18 10/27/18 10/27/18 10/27/18 14:35 14:37 14:44 14:48 Pulse 128 96 Resp 19 18 B/P (MAP) 196/110 (138) 171/100 (123) Pulse Ox 90 89 93 94 O2 Delivery Nasal Cannula Nasal Cannula Nasal Cannula Nasal Cannula O2 Flow Rate 2.0 2.0 3.0 3.0 10/27/18 10/27/18 10/27/18 10/27/18 15:22 15:48 16:18 17:13 Pulse 102 96 98 Resp 22 36 21 B/P (MAP) 190/110 (136) 159/77 (104) 203/98 (133) 221/108 (145) Pulse Ox 94 98 92 O2 Delivery Nasal Cannula Nasal Cannula Nasal Cannula Nasal Cannula O2 Flow Rate 3.0 3.0 3.0 3.0 10/27/18 10/27/18 10/27/18 10/27/18 17:43 18:13 18:15 18:15 Pulse 92 94 94 Resp 27 19 B/P (MAP) 218/107 (144) 205/100 (135) 208/100 208/100 Pulse Ox 96 O2 Delivery Nasal Cannula Nasal Cannula O2 Flow Rate 3.0 3.0 10/27/18 10/27/18 10/27/18 10/27/18 18:45 19:30 19:52 20:57 Temp 98.1 98.1 Pulse 88 82 82 Resp 20 B/P (MAP) 224/110 (148) 180/108 (132) 175/104 Pulse Ox 93 O2 Delivery Nasal Cannula Nasal Cannula O2 Flow Rate 3.0 3.0 10/27/18 10/27/18 10/28/18 10/28/18 22:45 23:55 02:50 06:22 Temp 97.8 97.7 97.8 97.7 Pulse 77 69 Resp 20 20 B/P (MAP) 170/98 (122) 170/90 (116) Pulse Ox 93 94 94 O2 Delivery Nasal Cannula Nasal Cannula Nasal Cannula Nasal Cannula O2 Flow Rate 3.0 3.0 3.0 3.0 Intake and Output 10/27/18 10/27/18 10/28/18 14:59 22:59 06:59 Intake Total 3500 ml 900 ml Output Total 1000 ml 925 ml Balance 2500 ml -25 ml Images CTPA - 1. No central pulmonary embolism is identified, somewhat limited evaluation for smaller and more peripheral emboli on this exam. 2. There is mild right lower lobe infiltrate. There is mild perihilar bronchial wall thickening, can be seen with bronchitis. 3. There is some coronary calcification. 4. There is slightly ectatic ascending thoracic aorta about 3.7 cm. 5. There is diffuse hepatic steatosis. 6. There may be right renal calculi. JESSICA LYNN MD Oct 28, 2018 07:42
[2018-10-28] MEDS ORDERED: LISINOPRIL 20 MG TABLET PO SCH (09:00)
[2018-10-28] MEDS: DOXYCYCLINE HYCLATE 100 MG TABLET PO SCH ×2 (09:06→22:03)
[2018-10-28] MEDS: CARVEDILOL 12.5 MG TABLET. PO SCH ×2 (09:07→16:27)
[2018-10-28] MEDS: GABAPENTIN 300 MG CAPSULE. PO SCH ×3 (09:07→22:03)
[2018-10-28] MEDS: LACTOBACILLUS RHAMNOSUS GG 1 CAPSULE. PO SCH ×2 (09:07→22:03)
[2018-10-28 11:00] VITALS: BP 155/79
[2018-10-28] MEDS: BUDESONIDE 0.5 MG/2 ML NEBU. NEB SCH ×2 (12:14→19:46)
--- NOTE | 2018-10-28 12:15 | CARD ---
MR#: [id number] Date of Study: 10/28/2018 Ordering Physician: SILVIA WASHINGTON, Referring Physician: SILVIA WASHINGTON Tech: Lizette Magaña MOOK APPROVED REPORT EXAM: Two-dimensional and M-mode echocardiogram with Doppler and color Doppler. Other Information Quality : Technically LimitedHR: 70bpm INDICATION Hypertension/HCVD 2D DIMENSIONS RVDd4.6 (2.9-3.5cm)IVSd1.3 (0.7-1.1cm) Aortic Root(2D)4.5 (2.0-3.7cm)LVDd4.6 (3.9-5.9cm) LVOT Diameter2.6 (1.8-2.4cm)PWd1.3 (0.7-1.1cm) LVDs3.4 (2.5-4.0cm)FS (%) 26.5 % SV50.2 ml M-Mode DIMENSIONS Left Atrium(MM)3.83 (2.5-4.0cm)Aortic Root4.48 (2.2-3.7cm) Aortic Valve AoV Peak Minor.118.7cm/sAoV VTI24.3cm AO Peak GR.5.6mmHgLVOT VTI 18.49cm AO Mean GR.3mmHgAVA (VTI)4.00cm2 AI P 1/2 [id number] Mitral Valve MV E Ulpaymij00.8cm/sMV E Peak Gr.3mmHg MV DECEL [id number] A Ozgrqhph64.2cm/s MV E Mean Gr.1mmHgE/A Ratio1.3 MV A [id number] TDI Medial E' P. V7.40cm/sE/Medial E'8.6 Tricuspid Valve TR P. [id number]/sRAP [id number] TR Peak Gr.[id number] LEFT VENTRICLE The left ventricle is normal size. There is mild concentric left ventricular hypertrophy. Left ventri kishore systolic function is low normal. The Ejection Fraction is 50-55%. There is normal LV segmental wa ll motion. Transmitral Doppler flow pattern is Grade I-abnormal relaxation pattern. RIGHT VENTRICLE The right ventricle is normal size. There is normal right ventricular wall thickness. The right ventr icular systolic function is normal. ATRIA The left atrium size is normal. The right atrium size is normal. The interatrial septum is intact wit h no evidence for an atrial septal defect or patent foramen ovale as noted on 2-D or Doppler imaging. AORTIC VALVE The aortic valve is calcified but opens well. The aortic valve is trileaflet. Doppler and Color Flow revealed mild aortic regurgitation. There is no significant aortic valvular stenosis. MITRAL VALVE The mitral valve is normal in structure and function. There is no evidence of mitral valve prolapse. There is no mitral valve stenosis. Doppler and Color-flow revealed trace mitral regurgitation. TRICUSPID VALVE The tricuspid valve is normal in structure and function. Doppler and Color Flow revealed trace tricus pid regurgitation. The PA pressure was estimated at 21 mmHg. There is no tricuspid valve prolapse or vegetation. There is no tricuspid valve stenosis. PULMONIC VALVE The pulmonic valve is not well visualized. GREAT VESSELS The aortic root is moderately enlarged at 4.5cm. The ascending aorta is normal in size. The Aortic Ar ch is enlarged. The IVC is normal in size and collapses >50% with inspiration. PERICARDIAL EFFUSION There is no evidence of significant pericardial effusion. Critical Notification Critical Value: No <Conclusion> The left ventricle is normal size. Left ventricle systolic function is low normal. The Ejection Fraction is 50-55%. There is mild concentric left ventricular hypertrophy. There is no significant aortic valvular stenosis. Doppler and Color Flow revealed mild aortic regurgitation. Doppler and Color-flow revealed trace mitral regurgitation. Doppler and Color Flow revealed trace tricuspid regurgitation. The PA pressure was estimated at 21 mmHg. The aortic root is moderately enlarged at 4.5cm. The ascending aorta is normal in size. The Aortic Arch is enlarged. Signed by : Harris Vee MD Electronically Approved : 10/28/2018 12:14:58
[2018-10-28] MEDS ORDERED: LOSARTAN POTASSIUM 50 MG TABLET. PO SCH (12:30)
[2018-10-28] MEDS: IPRATRPIUM/ALBUTEROL 0.5/2.5MG 3 ML NEBU. NEB SCH ×3 (12:30→19:46)
--- NOTE | 2018-10-28 12:36 | PDOC2 ---
CONSULT Date of Consult Date of Consult DATE: 10/28/18 TIME: 12:26 Reason for Consult Reason for Consult: Hyponatremia Identification/Chief Complaint Chief Complaint " Not feeling well" Source Source: Chart review, Patient History of Present Illness Reason for Visit: 53 year old CM with history of hypertension not currently taking meds, stopped taking approx 11/2 yrs back. Have not been going to PCP or Cardiology . He presented to the ER with SOB on exertion and at rest with associated cough and congestion. He reports decreased PO intake. no nausea vomiting diarrhea. Denies hx of COPD or CHF.Denies any NSAID use or any Other OTC supplements Scheduled for Left Hip sx 11/10 per patient. Social History No ALCOHOL: none Drugs: None Current Problem List Problem List Problems Medical Problems: (1) Hypertension Status: Acute (2) Hyponatremia Status: Acute (3) Right lower lobe pneumonia Status: Acute (4) Shortness of breath Status: Acute (5) Tachycardia Status: Acute Current Medications Current Medications Current Medications Albuterol/ Ipratropium (Duoneb) 3 ml 1X ONCE NEB Last administered on at 14:03; Start 10/27/18 at 14:00; Stop 10/27/18 at 14:01; Status DC Methylprednisolone Sodium Succinate (SOLU-Medrol 125MG VIAL) 125 mg 1X ONCE IV Last administered on 10/27/18at 14:10; Start 10/27/18 at 14:00; Stop 10/27/18 at 14:01; Status DC Labetalol HCl (Normodyne Iv Push) 10 mg 1X ONCE IVP Last administered on at 14:34; Start 10/27/18 at 14:15; Stop 10/27/18 at 14:16; Status DC Sodium Chloride 1,000 ml @ 1,000 mls/hr 1X ONCE IV Last administered on at 15:20; Start 10/27/18 at 15:00; Stop 10/27/18 at 15:59; Status DC Sodium Chloride 1,000 ml @ 1,000 mls/hr 1X ONCE IV Last administered on at 16:01; Start 10/27/18 at 15:45; Stop 10/27/18 at 16:44; Status DC Vancomycin HCl (Vanco Per Pharmacy) 1 each PRN DAILY PRN MC SEE COMMENTS Last administered on 10/27/18at 18:37; Start 10/27/18 at 16:00 Ceftriaxone Sodium (Rocephin) 1 gm 1X ONCE IVP Last administered on 10/27/18at 16:03; Start 10/27/18 at 16:00; Stop 10/27/18 at 16:01; Status DC Vancomycin HCl 2 gm/Sodium Chloride 500 ml @ 250 mls/hr 1X ONCE IV Last administered on 10/27/18at 16:02; Start 10/27/18 at 16:30; Stop 10/27/18 at 18:29 ; Status DC Doxycycline Hyclate (Vibra-Tab) 100 mg BID PO Last administered on 10/28/18at 09 :06; Start 10/27/18 at 21:00 Iohexol (Omnipaque 350 Mg/ml) 100 ml 1X ONCE IV Last administered on at 16:54; Start 10/27/18 at 16:45; Stop 10/27/18 at 16:46; Status DC Info (CONTRAST GIVEN -- Rx MONITORING) 1 each PRN DAILY PRN MC SEE COMMENTS; Start 10/27/18 at 16:45; Stop 10/29/18 at 16:44 Ondansetron HCl (Zofran) 4 mg PRN Q8HRS PRN IV NAUSEA/VOMITING; Start 10/27/18 at 17:00; Stop 10/28/18 at 16:59 Morphine Sulfate (Morphine Sulfate) 2 mg PRN Q2HR PRN IV PAIN; Start 10/27/18 at 17:00; Stop 10/28/18 at 16:59 Sodium Chloride 1,000 ml @ 125 mls/hr 1X ONCE IV ; Start 10/27/18 at 17:00; Stop 10/28/18 at 00:59; Status DC Labetalol HCl (Normodyne Iv Push) 10 mg 1X ONCE IVP Last administered on at 18:15; Start 10/27/18 at 18:15; Stop 10/27/18 at 18:16; Status DC Clonidine HCl (Catapres) 0.1 mg 1X ONCE PO Last administered on 10/27/18at 18: 15; Start 10/27/18 at 18:15; Stop 10/27/18 at 18:16; Status DC Clonidine HCl (Catapres) 0.1 mg PRN Q8HRS PRN PO HYPERTENSION, SEE COMMENTS Last administered on 10/27/18at 20:57; Start 10/27/18 at 18:15 Clonidine HCl (Catapres) 0.1 mg STK-MED ONCE .ROUTE ; Start 10/27/18 at 18:12; Stop 10/27/18 at 18:13; Status DC Vancomycin HCl 2 gm/Sodium Chloride 500 ml @ 250 mls/hr Q12H IV Last administered on 10/28/18at 03:59; Start 10/28/18 at 04:00 Vancomycin HCl (Vancomycin Trough Level) 1 each 1X ONCE MC ; Start 10/29/18 at 03:30; Stop 10/29/18 at 03:31 Sodium Chloride 1,000 ml @ 100 mls/hr Q10H IV Last administered on 10/28/18at 04:00; Start 10/27/18 at 19:00 Heparin Sodium (Porcine) (Heparin Sodium) 5,000 unit Q8HRS SQ Last administered on 10/28/18at 06:16; Start 10/27/18 at 22:00 Gabapentin (Neurontin) 300 mg TID PO Last administered on 10/28/18at 09:07; Start 10/27/18 at 21:00 Carvedilol (Coreg) 12.5 mg BIDWMEALS PO Last administered on 10/28/18at 09:07; Start 10/28/18 at 08:00 Ceftriaxone Sodium (Rocephin) 1 gm Q24H IVP ; Start 10/28/18 at 16:00 Doxycycline Hyclate (Vibra-Tab) 100 mg BID PO ; Start 10/27/18 at 21:00; Status UNV Lisinopril (Prinivil) 20 mg DAILY PO Last administered on 10/28/18at 09:08; Start 10/28/18 at 09:00; Stop 10/28/18 at 12:05; Status DC Hydralazine HCl (Apresoline Inj) 10 mg PRN Q4HRS PRN IVP ELEVATED BP, SEE COMMENTS; Start 10/27/18 at 21:15 Albuterol Sulfate (Ventolin Neb Soln) 2.5 mg STK-MED ONCE .ROUTE ; Start at 23:48; Stop 10/28/18 at 00:52; Status DC Albuterol Sulfate (Ventolin Neb Soln) 2.5 mg PRN Q4HRS PRN NEB SHORTNESS OF BREATH Last administered on 10/28/18at 12:07; Start 10/27/18 at 23:00 Throat Lozenges (Cepacol Sore Throat Lozenge) 1 kaiser PRN Q2HRS PRN PO SORE THROAT; Start 10/28/18 at 05:00 Lactobacillus Rhamnosus (Culturelle) 1 cap BID PO Last administered on at 09:07; Start 10/28/18 at 09:00 Albuterol/ Ipratropium (Duoneb) 3 ml RTQID NEB ; Start 10/28/18 at 12:30 Budesonide (Pulmicort) 0.5 mg RTBID NEB Last administered on 10/28/18at 12:14; Start 10/28/18 at 12:30 Losartan Potassium (Cozaar) 100 mg DAILY PO ; Start 10/28/18 at 12:30 Active Scripts Active Reported Coreg (Carvedilol) 25 Mg Tablet 12.5 Mg PO BIDWMEALS Losartan Potassium 100 Mg Tablet 100 Mg PO DAILY Gabapentin 300 Mg Capsule 300 Mg PO TID Allergies Allergies: Coded Allergies: clarithromycin (Verified Allergy, Intermediate, 10/27/18) ROS Review of System As per HPI Physical Exam Physical Exam GENERAL: No apparent distress. HEENT: OM moist NECK: Supple LUNGS: course bilaterally HEART: RRR, S1, S2 present, pulses intact ABDOMEN: Soft, Obese EXTREMITIES: No edema. NEUROLOGIC: Grossly normal SKIN: No Rash No Ha[place], No SP or CVA tenderness Vital Signs Vital Signs Date Time Temp Pulse Resp B/P (MAP) Pulse Ox O2 Delivery O2 Flow Rate FiO2 10/28/18 12:08 97 Nasal Cannula 3.0 10/28/18 11:00 98.0 67 18 155/79 (104) 98.0 Assessment & Plan Hyponatremia- ?Pneumonia, Poor PO intake Not on any Meds currently, Doesn't see a health care provider Continue NS, Improving Na , CTA reviewed , Renal function normal Serum, Ur osm and Ur Lytes Ordered this am( not done in ER) , Monitor HTN- on antihypertensives Pneumonia -On Abx Anemia- ALANIZ as per primary Discussed with RN Labs Labs Laboratory Tests Test 10/27/18 13:57 10/27/18 15:45 10/27/18 17:40 10/27/18 18:00 White Blood Count 9.2 x10^3/uL (4.0-11.0) Red Blood Count 4.49 x10^6/uL (4.30-5.70) Hemoglobin 11.8 g/dL (13.0-17.5) Hematocrit 36.1 % (39.0-53.0) Mean Corpuscular Volume 81 fL (79-100) Mean Corpuscular Hemoglobin 26 pg (25-35) Mean Corpuscular Hemoglobin Concent 33 g/dL (31-37) Red Cell Distribution Width 17.6 % (11.5-14.5) Platelet Count 203 x10^3/uL (140-400) Neutrophils (%) (Auto) 95 % (31-73) Lymphocytes (%) (Auto) 3 % (24-48) Monocytes (%) (Auto) 2 % (0-9) Eosinophils (%) (Auto) 0 % (0-3) Basophils (%) (Auto) 1 % (0-3) Neutrophils # (Auto) 8.7 x10^3uL (1.8-7.7) Lymphocytes # (Auto) 0.2 x10^3/uL (1.0-4.8) Monocytes # (Auto) 0.1 x10^3/uL (0.0-1.1) Eosinophils # (Auto) 0.0 x10^3/uL (0.0-0.7) Basophils # (Auto) 0.1 x10^3/uL (0.0-0.2) Segmented Neutrophils % 76 % (35-66) Band Neutrophils % 20 % (0-9) Lymphocytes % 2 % (24-48) Monocytes % 1 % (0-10) Eosinophils % 1 % (0-5) Platelet Estimate Adequate (ADEQUATE) Anisocytosis Slight Prothrombin Time 12.4 SEC (11.7-14.0) Prothromb Time International Ratio 1.0 (0.8-1.1) D-Dimer (Marilin) 1.23 ug/mlFEU (0.00-0.50) Sodium Level 128 mmol/L (136-145) Potassium Level 3.6 mmol/L (3.5-5.1) Chloride Level 88 mmol/L (98-107) Carbon Dioxide Level 25 mmol/L (21-32) Anion Gap 15 (6-14) Blood Urea Nitrogen 6 mg/dL (8-26) Creatinine 0.9 mg/dL (0.7-1.3) Estimated GFR (Cockcroft-Gault) 87.6 BUN/Creatinine Ratio 7 (6-20) Glucose Level 125 mg/dL (70-99) Lactic Acid Level 2.6 mmol/L (0.4-2.0) 1.5 mmol/L (0.4-2.0) Calcium Level 9.2 mg/dL (8.5-10.1) Magnesium Level 1.8 mg/dL (1.8-2.4) Total Bilirubin 0.9 mg/dL (0.2-1.0) Aspartate Amino Transf (AST/SGOT) 252 U/L (15-37) Alanine Aminotransferase (ALT/SGPT) 138 U/L (16-63) Alkaline Phosphatase 115 U/L (46-116) Creatine Kinase 326 U/L (39-308) Creatine Kinase MB (Mass) 0.9 ng/mL (0.0-3.6) Creatine Kinase MB Relative Index 0.3 % (0-4) Troponin I Quantitative < 0.017 ng/mL (0.000-0.055) UX-Ztb-C-Type Natriuretic Peptide 440 pg/mL (0-124) Total Protein 8.6 g/dL (6.4-8.2) Albumin 3.7 g/dL (3.4-5.0) Albumin/Globulin Ratio 0.8 (1.0-1.7) Thyroid Stimulating Hormone (TSH) 2.018 uIU/mL (0.358-3.74) O2 Saturation 94 % (92-99) Arterial Blood pH 7.51 (7.35-7.45) Arterial Blood pCO2 at Patient Temp 27 mmHg (35-46) Arterial Blood pO2 at Patient Temp 69 mmHg (75-108) Arterial Blood HCO3 21 mmol/L (21-28) Arterial Blood Base Excess -1 mmol/L (-3-3) FiO2 32% nc Urine Collection Type Unknown Urine Color Yellow Urine Clarity Clear Urine pH 7.5 Urine Specific [place] >=1.030 Urine Protein Negative mg/dL (NEG-TRACE) Urine Glucose (UA) 100 mg/dL (NEG) Urine Ketones (Stick) Trace mg/dL (NEG) Urine Blood Negative (NEG) Urine Nitrite Negative (NEG) Urine Bilirubin Negative (NEG) Urine Urobilinogen Dipstick 0.2 mg/dL (0.2 mg/dL) Urine Leukocyte Esterase Negative (NEG) Urine RBC 0 /HPF (0-2) Urine WBC 0 /HPF (0-4) Urine Bacteria 0 /HPF (0-FEW) Test 10/27/18 23:00 10/27/18 23:15 10/28/18 04:00 10/28/18 09:01 Lactic Acid Level 2.4 mmol/L (0.4-2.0) 2.1 mmol/L (0.4-2.0) 1.6 mmol/L (0.4-2.0) Hepatitis A IgM Antibody Nonreactive (Nonreactive) Hepatitis B Surface Antigen Nonreactive (Nonreactive) Hepatitis B Core IgM Antibody Nonreactive (Nonreactive) Hepatitis C IgG Antibody Nonreactive (Nonreactive) Sodium Level 125 mmol/L (136-145) 130 mmol/L (136-145) Potassium Level 3.7 mmol/L (3.5-5.1) 3.8 mmol/L (3.5-5.1) Chloride Level 90 mmol/L (98-107) 93 mmol/L (98-107) Carbon Dioxide Level 24 mmol/L (21-32) 27 mmol/L (21-32) Anion Gap 11 (6-14) 10 (6-14) Blood Urea Nitrogen 7 mg/dL (8-26) 7 mg/dL (8-26) Creatinine 1.0 mg/dL (0.7-1.3) 0.9 mg/dL (0.7-1.3) Estimated GFR (Cockcroft-Gault) 77.6 87.6 Glucose Level 219 mg/dL (70-99) 156 mg/dL (70-99) Calcium Level 8.2 mg/dL (8.5-10.1) 8.2 mg/dL (8.5-10.1) White Blood Count 10.2 x10^3/uL (4.0-11.0) Red Blood Count 3.49 x10^6/uL (4.30-5.70) Hemoglobin 9.0 g/dL (13.0-17.5) Hematocrit 27.8 % (39.0-53.0) Mean Corpuscular Volume 80 fL (79-100) Mean Corpuscular Hemoglobin 26 pg (25-35) Mean Corpuscular Hemoglobin Concent 33 g/dL (31-37) Red Cell Distribution Width 18.1 % (11.5-14.5) Platelet Count 150 x10^3/uL (140-400) Neutrophils (%) (Auto) 88 % (31-73) Lymphocytes (%) (Auto) 4 % (24-48) Monocytes (%) (Auto) 9 % (0-9) Eosinophils (%) (Auto) 0 % (0-3) Basophils (%) (Auto) 0 % (0-3) Neutrophils # (Auto) 9.0 x10^3uL (1.8-7.7) Lymphocytes # (Auto) 0.4 x10^3/uL (1.0-4.8) Monocytes # (Auto) 0.9 x10^3/uL (0.0-1.1) Eosinophils # (Auto) 0.0 x10^3/uL (0.0-0.7) Basophils # (Auto) 0.0 x10^3/uL (0.0-0.2) BUN/Creatinine Ratio 8 (6-20) Total Bilirubin 0.6 mg/dL (0.2-1.0) Direct Bilirubin 0.3 mg/dL (0.0-0.2) Aspartate Amino Transf (AST/SGOT) 122 U/L (15-37) Alanine Aminotransferase (ALT/SGPT) 87 U/L (16-63) Alkaline Phosphatase 93 U/L (46-116) Total Protein 6.8 g/dL (6.4-8.2) Albumin 2.8 g/dL (3.4-5.0) Albumin/Globulin Ratio 0.7 (1.0-1.7) Procalcitonin 0.35 ng/mL (0.00-0.10) Laboratory Tests Test 10/27/18 13:57 10/27/18 15:45 10/27/18 17:40 10/27/18 18:00 White Blood Count 9.2 x10^3/uL (4.0-11.0) Red Blood Count 4.49 x10^6/uL (4.30-5.70) Hemoglobin 11.8 g/dL (13.0-17.5) Hematocrit 36.1 % (39.0-53.0) Mean Corpuscular Volume 81 fL (79-100) Mean Corpuscular Hemoglobin 26 pg (25-35) Mean Corpuscular Hemoglobin Concent 33 g/dL (31-37) Red Cell Distribution Width 17.6 % (11.5-14.5) Platelet Count 203 x10^3/uL (140-400) Neutrophils (%) (Auto) 95 % (31-73) Lymphocytes (%) (Auto) 3 % (24-48) Monocytes (%) (Auto) 2 % (0-9) Eosinophils (%) (Auto) 0 % (0-3) Basophils (%) (Auto) 1 % (0-3) Neutrophils # (Auto) 8.7 x10^3uL (1.8-7.7) Lymphocytes # (Auto) 0.2 x10^3/uL (1.0-4.8) Monocytes # (Auto) 0.1 x10^3/uL (0.0-1.1) Eosinophils # (Auto) 0.0 x10^3/uL (0.0-0.7) Basophils # (Auto) 0.1 x10^3/uL (0.0-0.2) Segmented Neutrophils % 76 % (35-66) Band Neutrophils % 20 % (0-9) Lymphocytes % 2 % (24-48) Monocytes % 1 % (0-10) Eosinophils % 1 % (0-5) Platelet Estimate Adequate (ADEQUATE) Anisocytosis Slight Prothrombin Time 12.4 SEC (11.7-14.0) Prothromb Time International Ratio 1.0 (0.8-1.1) D-Dimer (Marilin) 1.23 ug/mlFEU (0.00-0.50) Sodium Level 128 mmol/L (136-145) Potassium Level 3.6 mmol/L (3.5-5.1) Chloride Level 88 mmol/L (98-107) Carbon Dioxide Level 25 mmol/L (21-32) Anion Gap 15 (6-14) Blood Urea Nitrogen 6 mg/dL (8-26) Creatinine 0.9 mg/dL (0.7-1.3) Estimated GFR (Cockcroft-Gault) 87.6 BUN/Creatinine Ratio 7 (6-20) Glucose Level 125 mg/dL (70-99) Lactic Acid Level 2.6 mmol/L (0.4-2.0) 1.5 mmol/L (0.4-2.0) Calcium Level 9.2 mg/dL (8.5-10.1) Magnesium Level 1.8 mg/dL (1.8-2.4) Total Bilirubin 0.9 mg/dL (0.2-1.0) Aspartate Amino Transf (AST/SGOT) 252 U/L (15-37) Alanine Aminotransferase (ALT/SGPT) 138 U/L (16-63) Alkaline Phosphatase 115 U/L (46-116) Creatine Kinase 326 U/L (39-308) Creatine Kinase MB (Mass) 0.9 ng/mL (0.0-3.6) Creatine Kinase MB Relative Index 0.3 % (0-4) Troponin I Quantitative < 0.017 ng/mL (0.000-0.055) TW-Uuh-R-Type Natriuretic Peptide 440 pg/mL (0-124) Total Protein 8.6 g/dL (6.4-8.2) Albumin 3.7 g/dL (3.4-5.0) Albumin/Globulin Ratio 0.8 (1.0-1.7) Thyroid Stimulating Hormone (TSH) 2.018 uIU/mL (0.358-3.74) O2 Saturation 94 % (92-99) Arterial Blood pH 7.51 (7.35-7.45) Arterial Blood pCO2 at Patient Temp 27 mmHg (35-46) Arterial Blood pO2 at Patient Temp 69 mmHg (75-108) Arterial Blood HCO3 21 mmol/L (21-28) Arterial Blood Base Excess -1 mmol/L (-3-3) FiO2 32% nc Urine Collection Type Unknown Urine Color Yellow Urine Clarity Clear Urine pH 7.5 Urine Specific [place] >=1.030 Urine Protein Negative mg/dL (NEG-TRACE) Urine Glucose (UA) 100 mg/dL (NEG) Urine Ketones (Stick) Trace mg/dL (NEG) Urine Blood Negative (NEG) Urine Nitrite Negative (NEG) Urine Bilirubin Negative (NEG) Urine Urobilinogen Dipstick 0.2 mg/dL (0.2 mg/dL) Urine Leukocyte Esterase Negative (NEG) Urine RBC 0 /HPF (0-2) Urine WBC 0 /HPF (0-4) Urine Bacteria 0 /HPF (0-FEW) Test 10/27/18 23:00 10/27/18 23:15 10/28/18 04:00 10/28/18 09:01 Lactic Acid Level 2.4 mmol/L (0.4-2.0) 2.1 mmol/L (0.4-2.0) 1.6 mmol/L (0.4-2.0) Hepatitis A IgM Antibody Nonreactive (Nonreactive) Hepatitis B Surface Antigen Nonreactive (Nonreactive) Hepatitis B Core IgM Antibody Nonreactive (Nonreactive) Hepatitis C IgG Antibody Nonreactive (Nonreactive) Sodium Level 125 mmol/L (136-145) 130 mmol/L (136-145) Potassium Level 3.7 mmol/L (3.5-5.1) 3.8 mmol/L (3.5-5.1) Chloride Level 90 mmol/L (98-107) 93 mmol/L (98-107) Carbon Dioxide Level 24 mmol/L (21-32) 27 mmol/L (21-32) Anion Gap 11 (6-14) 10 (6-14) Blood Urea Nitrogen 7 mg/dL (8-26) 7 mg/dL (8-26) Creatinine 1.0 mg/dL (0.7-1.3) 0.9 mg/dL (0.7-1.3) Estimated GFR (Cockcroft-Gault) 77.6 87.6 Glucose Level 219 mg/dL (70-99) 156 mg/dL (70-99) Calcium Level 8.2 mg/dL (8.5-10.1) 8.2 mg/dL (8.5-10.1) White Blood Count 10.2 x10^3/uL (4.0-11.0) Red Blood Count 3.49 x10^6/uL (4.30-5.70) Hemoglobin 9.0 g/dL (13.0-17.5) Hematocrit 27.8 % (39.0-53.0) Mean Corpuscular Volume 80 fL (79-100) Mean Corpuscular Hemoglobin 26 pg (25-35) Mean Corpuscular Hemoglobin Concent 33 g/dL (31-37) Red Cell Distribution Width 18.1 % (11.5-14.5) Platelet Count 150 x10^3/uL (140-400) Neutrophils (%) (Auto) 88 % (31-73) Lymphocytes (%) (Auto) 4 % (24-48) Monocytes (%) (Auto) 9 % (0-9) Eosinophils (%) (Auto) 0 % (0-3) Basophils (%) (Auto) 0 % (0-3) Neutrophils # (Auto) 9.0 x10^3uL (1.8-7.7) Lymphocytes # (Auto) 0.4 x10^3/uL (1.0-4.8) Monocytes # (Auto) 0.9 x10^3/uL (0.0-1.1) Eosinophils # (Auto) 0.0 x10^3/uL (0.0-0.7) Basophils # (Auto) 0.0 x10^3/uL (0.0-0.2) BUN/Creatinine Ratio 8 (6-20) Total Bilirubin 0.6 mg/dL (0.2-1.0) Direct Bilirubin 0.3 mg/dL (0.0-0.2) Aspartate Amino Transf (AST/SGOT) 122 U/L (15-37) Alanine Aminotransferase (ALT/SGPT) 87 U/L (16-63) Alkaline Phosphatase 93 U/L (46-116) Total Protein 6.8 g/dL (6.4-8.2) Albumin 2.8 g/dL (3.4-5.0) Albumin/Globulin Ratio 0.7 (1.0-1.7) Procalcitonin 0.35 ng/mL (0.00-0.10) Review All relevant outside records, renal labs, imaging studies, telemetry/EKG's were reviewed. Images Images CxR-- 1. Elevation of the right hemidiaphragm with suspected right basilar compressive atelectasis. 2. No acute pulmonary finding. US Abdomen- The pancreas is not well visualized due to body habitus and bowel gas. The visualized portion of the proximal aorta measuring 1.8 cm in greatest dimension but the distal aorta is not visualized. The IVC is not well visualized. The liver shows diffuse fatty infiltration and appears to be enlarged measuring 18.3 cm in greatest dimension but no focal lesions are seen. Gallbladder shows no cholelithiasis, sludge or wall thickening. Common bile duct is normal in caliber 4.3 mm. The right kidney measures 11.9 x 5.4 x 4.7 cm in greatest dimension and shows some increased echogenicity with no mass or hydronephrosis evident. The left kidney measures 12.3 x 5.9 x 4.1 cm in greatest dimension and shows increased echogenicity with a tiny cysts seen but no hydronephrosis evident. The spleen is enlarged at 13.4 cm without a focal lesion. There is no free fluid present. IMPRESSION: Mild hepatosplenomegaly with fatty infiltration in the liver. No focal lesions in the liver or spleen. Echogenic kidneys with a small left renal CTA- 1. No central pulmonary embolism is identified, somewhat limited evaluation for smaller and more peripheral emboli on this exam. 2. There is mild right lower lobe infiltrate. There is mild perihilar bronchial wall thickening, can be seen with bronchitis. 3. There is some coronary calcification. 4. There is slightly ectatic ascending thoracic aorta about 3.7 cm. 5. There is diffuse hepatic steatosis. 6. There may be right renal calculi. IDANIA DENNIS MD Oct 28, 2018 12:36
--- NOTE | 2018-10-28 12:39 | NUR ---
SS following for discharge planning. SS reviewed pt chart. Pt is from home with spouse and is currently requiring oxygen. No discharge needs noted at this time. SS will continue to follow for pending discharge needs.
--- NOTE | 2018-10-28 12:46 | NUR ---
NON ADMINISTERED THIS DUONEB TX I HAD JUST GIVEN ALBUTOL TX BEFORE SEEING NEW MED ORDER CHOLMESRRT
[2018-10-28 15:00] VITALS: BP 148/78
[2018-10-28] MEDS ORDERED: cefTRIAXone IV Push 1 GM VIAL. IVP SCH (16:00)
[2018-10-28] MEDS: BENZOCAINE/MENTHOL LOZENGE. PO PRN ×2 (16:27→22:03)
[2018-10-28 19:15] VITALS: BP 157/89
[2018-10-28 23:08] LABS: SODIUM, URINE <60 mmol/L (Not Estab.); UR POTASSIUM 18.4 mmol/L (Not Estab.)
[2018-10-28 23:35] VITALS: BP 165/89
[2018-10-29] MEDS: BENZOCAINE/MENTHOL LOZENGE. PO PRN ×2 (02:00→22:22)
[2018-10-29 03:00] VITALS: BP 202/95
[2018-10-29 03:10] LABS: HEMOGLOBIN A1C 5.6 % (4.8-5.6)
[2018-10-29] MEDS: cloNIDine HCL 0.1 MG TABLET PO PRN ×2 (03:23→22:32)
[2018-10-29] MEDS: IV NORMAL SALINE 1000ML BAG 1,000 ML IV SCH (03:23)
[2018-10-29] MEDS: HEPARIN for SUB-Q USE 5,000 UNIT/ML VIAL. SQ SCH ×3 (06:26→22:11)
[2018-10-29 07:00] VITALS: BP 184/88
[2018-10-29] MEDS: IPRATRPIUM/ALBUTEROL 0.5/2.5MG 3 ML NEBU. NEB SCH ×4 (07:28→20:30)
[2018-10-29] MEDS: BUDESONIDE 0.5 MG/2 ML NEBU. NEB SCH ×2 (07:29→20:30)
--- NOTE | 2018-10-29 08:02 | PDOC ---
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 uncontrolled and untreated BP check TTE check abdominal US check a1c check TSH repeat LFTSl dvt ppx: heparin full code History of Present Illness History of Present Illness 53 year old male with history of hypertension not currently taking meds who presents with SOB on exertion and at rest with associated cough and congestion. patient does not have a PCP. does not take BP meds anymore, last took over a year ago. reports decreased PO intake. no nausea vomiting diarrhea. denies hx of COPD or CHF. scheduled for Left Hip sx 11/[address] chest concerning for PNA. also found to have elevated BNP 440 Sodium stable today, K lower at 3.3, feeling less short of breath. Transaminitis noted. He denies any CP. Vitals Vitals Vital Signs Date Time Temp Pulse Resp B/P (MAP) Pulse Ox O2 Delivery O2 Flow Rate FiO2 10/29/18 07:29 Nasal Cannula 3.0 10/29/18 03:23 87 202/95 10/29/18 03:00 98.9 20 93 98.9 Physical Exam General: Alert, Oriented X3, Cooperative Heart: Regular rate, Normal S1, Normal S2 Lungs: Wheezing, Crackles Abdomen: Normal bowel sounds, Soft Extremities: No clubbing, No cyanosis Skin: No rashes, No breakdown Labs LABS Laboratory Tests Test 10/28/18 09:01 10/28/18 15:40 Lactic Acid Level 1.6 mmol/L (0.4-2.0) Urine Sodium <60 mmol/L (Not Estab.) Urine Potassium 18.4 mmol/L (Not Estab.) Urine Chloride <60 mmol/L (Not Estab.) Assessment and Plan Assessmemt and Plan Problems Medical Problems: (1) Hypertension Status: Acute (2) Hyponatremia Status: Acute (3) Right lower lobe pneumonia Status: Acute (4) Shortness of breath Status: Acute (5) Tachycardia Status: Acute Comment Review of Relevant I have reviewed the following items jason (where applicable) has been applied. Labs Laboratory Tests Test 10/27/18 13:57 10/27/18 15:45 10/27/18 17:40 10/27/18 18:00 White Blood Count 9.2 x10^3/uL (4.0-11.0) Red Blood Count 4.49 x10^6/uL (4.30-5.70) Hemoglobin 11.8 g/dL (13.0-17.5) Hematocrit 36.1 % (39.0-53.0) Mean Corpuscular Volume 81 fL (79-100) Mean Corpuscular Hemoglobin 26 pg (25-35) Mean Corpuscular Hemoglobin Concent 33 g/dL (31-37) Red Cell Distribution Width 17.6 % (11.5-14.5) Platelet Count 203 x10^3/uL (140-400) Neutrophils (%) (Auto) 95 % (31-73) Lymphocytes (%) (Auto) 3 % (24-48) Monocytes (%) (Auto) 2 % (0-9) Eosinophils (%) (Auto) 0 % (0-3) Basophils (%) (Auto) 1 % (0-3) Neutrophils # (Auto) 8.7 x10^3uL (1.8-7.7) Lymphocytes # (Auto) 0.2 x10^3/uL (1.0-4.8) Monocytes # (Auto) 0.1 x10^3/uL (0.0-1.1) Eosinophils # (Auto) 0.0 x10^3/uL (0.0-0.7) Basophils # (Auto) 0.1 x10^3/uL (0.0-0.2) Segmented Neutrophils % 76 % (35-66) Band Neutrophils % 20 % (0-9) Lymphocytes % 2 % (24-48) Monocytes % 1 % (0-10) Eosinophils % 1 % (0-5) Platelet Estimate Adequate (ADEQUATE) Anisocytosis Slight Prothrombin Time 12.4 SEC (11.7-14.0) Prothromb Time International Ratio 1.0 (0.8-1.1) D-Dimer (Marilin) 1.23 ug/mlFEU (0.00-0.50) Sodium Level 128 mmol/L (136-145) Potassium Level 3.6 mmol/L (3.5-5.1) Chloride Level 88 mmol/L (98-107) Carbon Dioxide Level 25 mmol/L (21-32) Anion Gap 15 (6-14) Blood Urea Nitrogen 6 mg/dL (8-26) Creatinine 0.9 mg/dL (0.7-1.3) Estimated GFR (Cockcroft-Gault) 87.6 BUN/Creatinine Ratio 7 (6-20) Glucose Level 125 mg/dL (70-99) Lactic Acid Level 2.6 mmol/L (0.4-2.0) 1.5 mmol/L (0.4-2.0) Calcium Level 9.2 mg/dL (8.5-10.1) Magnesium Level 1.8 mg/dL (1.8-2.4) Total Bilirubin 0.9 mg/dL (0.2-1.0) Aspartate Amino Transf (AST/SGOT) 252 U/L (15-37) Alanine Aminotransferase (ALT/SGPT) 138 U/L (16-63) Alkaline Phosphatase 115 U/L (46-116) Creatine Kinase 326 U/L (39-308) Creatine Kinase MB (Mass) 0.9 ng/mL (0.0-3.6) Creatine Kinase MB Relative Index 0.3 % (0-4) Troponin I Quantitative < 0.017 ng/mL (0.000-0.055) SG-Pxz-M-Type Natriuretic Peptide 440 pg/mL (0-124) Total Protein 8.6 g/dL (6.4-8.2) Albumin 3.7 g/dL (3.4-5.0) Albumin/Globulin Ratio 0.8 (1.0-1.7) Thyroid Stimulating Hormone (TSH) 2.018 uIU/mL (0.358-3.74) O2 Saturation 94 % (92-99) Arterial Blood pH 7.51 (7.35-7.45) Arterial Blood pCO2 at Patient Temp 27 mmHg (35-46) Arterial Blood pO2 at Patient Temp 69 mmHg (75-108) Arterial Blood HCO3 21 mmol/L (21-28) Arterial Blood Base Excess -1 mmol/L (-3-3) FiO2 32% nc Urine Collection Type Unknown Urine Color Yellow Urine Clarity Clear Urine pH 7.5 Urine Specific [place] >=1.030 Urine Protein Negative mg/dL (NEG-TRACE) Urine Glucose (UA) 100 mg/dL (NEG) Urine Ketones (Stick) Trace mg/dL (NEG) Urine Blood Negative (NEG) Urine Nitrite Negative (NEG) Urine Bilirubin Negative (NEG) Urine Urobilinogen Dipstick 0.2 mg/dL (0.2 mg/dL) Urine Leukocyte Esterase Negative (NEG) Urine RBC 0 /HPF (0-2) Urine WBC 0 /HPF (0-4) Urine Bacteria 0 /HPF (0-FEW) Test 10/27/18 22:45 10/27/18 23:00 10/27/18 23:15 10/28/18 04:00 Hemoglobin A1c 5.6 % (4.8-5.6) Lactic Acid Level 2.4 mmol/L (0.4-2.0) 2.1 mmol/L (0.4-2.0) Hepatitis A IgM Antibody Nonreactive (Nonreactive) Hepatitis B Surface Antigen Nonreactive (Nonreactive) Hepatitis B Core IgM Antibody Nonreactive (Nonreactive) Hepatitis C IgG Antibody Nonreactive (Nonreactive) Sodium Level 125 mmol/L (136-145) 130 mmol/L (136-145) Potassium Level 3.7 mmol/L (3.5-5.1) 3.8 mmol/L (3.5-5.1) Chloride Level 90 mmol/L (98-107) 93 mmol/L (98-107) Carbon Dioxide Level 24 mmol/L (21-32) 27 mmol/L (21-32) Anion Gap 11 (6-14) 10 (6-14) Blood Urea Nitrogen 7 mg/dL (8-26) 7 mg/dL (8-26) Creatinine 1.0 mg/dL (0.7-1.3) 0.9 mg/dL (0.7-1.3) Estimated GFR (Cockcroft-Gault) 77.6 87.6 Glucose Level 219 mg/dL (70-99) 156 mg/dL (70-99) Calcium Level 8.2 mg/dL (8.5-10.1) 8.2 mg/dL (8.5-10.1) White Blood Count 10.2 x10^3/uL (4.0-11.0) Red Blood Count 3.49 x10^6/uL (4.30-5.70) Hemoglobin 9.0 g/dL (13.0-17.5) Hematocrit 27.8 % (39.0-53.0) Mean Corpuscular Volume 80 fL (79-100) Mean Corpuscular Hemoglobin 26 pg (25-35) Mean Corpuscular Hemoglobin Concent 33 g/dL (31-37) Red Cell Distribution Width 18.1 % (11.5-14.5) Platelet Count 150 x10^3/uL (140-400) Neutrophils (%) (Auto) 88 % (31-73) Lymphocytes (%) (Auto) 4 % (24-48) Monocytes (%) (Auto) 9 % (0-9) Eosinophils (%) (Auto) 0 % (0-3) Basophils (%) (Auto) 0 % (0-3) Neutrophils # (Auto) 9.0 x10^3uL (1.8-7.7) Lymphocytes # (Auto) 0.4 x10^3/uL (1.0-4.8) Monocytes # (Auto) 0.9 x10^3/uL (0.0-1.1) Eosinophils # (Auto) 0.0 x10^3/uL (0.0-0.7) Basophils # (Auto) 0.0 x10^3/uL (0.0-0.2) BUN/Creatinine Ratio 8 (6-20) Total Bilirubin 0.6 mg/dL (0.2-1.0) Direct Bilirubin 0.3 mg/dL (0.0-0.2) Aspartate Amino Transf (AST/SGOT) 122 U/L (15-37) Alanine Aminotransferase (ALT/SGPT) 87 U/L (16-63) Alkaline Phosphatase 93 U/L (46-116) Total Protein 6.8 g/dL (6.4-8.2) Albumin 2.8 g/dL (3.4-5.0) Albumin/Globulin Ratio 0.7 (1.0-1.7) Procalcitonin 0.35 ng/mL (0.00-0.10) Test 10/28/18 09:01 10/28/18 15:40 Lactic Acid Level 1.6 mmol/L (0.4-2.0) Urine Sodium <60 mmol/L (Not Estab.) Urine Potassium 18.4 mmol/L (Not Estab.) Urine Chloride <60 mmol/L (Not Estab.) Laboratory Tests Test 10/28/18 09:01 10/28/18 15:40 Lactic Acid Level 1.6 mmol/L (0.4-2.0) Urine Sodium <60 mmol/L (Not Estab.) Urine Potassium 18.4 mmol/L (Not Estab.) Urine Chloride <60 mmol/L (Not Estab.) Microbiology 10/27/18 Blood Culture - Preliminary, Resulted NO GROWTH AFTER 1 DAY Medications Current Medications Albuterol/ Ipratropium (Duoneb) 3 ml 1X ONCE NEB Last administered on 14:03; Start 10/27/18 at 14:00; Stop 10/27/18 at 14:01; Status DC Methylprednisolone Sodium Succinate (SOLU-Medrol 125MG VIAL) 125 mg 1X ONCE IV Last administered on 10/27/18at 14:10; Start 10/27/18 at 14:00; Stop 10/27/18 at 14:01; Status DC Labetalol HCl (Normodyne Iv Push) 10 mg 1X ONCE IVP Last administered on at 14:34; Start 10/27/18 at 14:15; Stop 10/27/18 at 14:16; Status DC Sodium Chloride 1,000 ml @ 1,000 mls/hr 1X ONCE IV Last administered on at 15:20; Start 10/27/18 at 15:00; Stop 10/27/18 at 15:59; Status DC Sodium Chloride 1,000 ml @ 1,000 mls/hr 1X ONCE IV Last administered on at 16:01; Start 10/27/18 at 15:45; Stop 10/27/18 at 16:44; Status DC Vancomycin HCl (Vanco Per Pharmacy) 1 each PRN DAILY PRN MC SEE COMMENTS Last administered on 10/27/18at 18:37; Start 10/27/18 at 16:00; Stop 10/28/18 at 13:07 ; Status DC Ceftriaxone Sodium (Rocephin) 1 gm 1X ONCE IVP Last administered on 10/27/18at 16:03; Start 10/27/18 at 16:00; Stop 10/27/18 at 16:01; Status DC Vancomycin HCl 2 gm/Sodium Chloride 500 ml @ 250 mls/hr 1X ONCE IV Last administered on 10/27/18at 16:02; Start 10/27/18 at 16:30; Stop 10/28/18 at 13:07 ; Status DC Doxycycline Hyclate (Vibra-Tab) 100 mg BID PO Last administered on 10/28/18at 22 :03; Start 10/27/18 at 21:00 Iohexol (Omnipaque 350 Mg/ml) 100 ml 1X ONCE IV Last administered on at 16:54; Start 10/27/18 at 16:45; Stop 10/27/18 at 16:46; Status DC Info (CONTRAST GIVEN -- Rx MONITORING) 1 each PRN DAILY PRN MC SEE COMMENTS; Start 10/27/18 at 16:45; Stop 10/29/18 at 16:44 Ondansetron HCl (Zofran) 4 mg PRN Q8HRS PRN IV NAUSEA/VOMITING; Start 10/27/18 at 17:00; Stop 10/28/18 at 16:59; Status DC Morphine Sulfate (Morphine Sulfate) 2 mg PRN Q2HR PRN IV PAIN; Start 10/27/18 at 17:00; Stop 10/28/18 at 16:59; Status DC Sodium Chloride 1,000 ml @ 125 mls/hr 1X ONCE IV ; Start 10/27/18 at 17:00; Stop 10/28/18 at 00:59; Status DC Labetalol HCl (Normodyne Iv Push) 10 mg 1X ONCE IVP Last administered on at 18:15; Start 10/27/18 at 18:15; Stop 10/27/18 at 18:16; Status DC Clonidine HCl (Catapres) 0.1 mg 1X ONCE PO Last administered on 10/27/18at 18: 15; Start 10/27/18 at 18:15; Stop 10/27/18 at 18:16; Status DC Clonidine HCl (Catapres) 0.1 mg PRN Q8HRS PRN PO HYPERTENSION, SEE COMMENTS Last administered on 10/29/18at 03:23; Start 10/27/18 at 18:15 Clonidine HCl (Catapres) 0.1 mg STK-MED ONCE .ROUTE ; Start 10/27/18 at 18:12; Stop 10/27/18 at 18:13; Status DC Vancomycin HCl 2 gm/Sodium Chloride 500 ml @ 250 mls/hr Q12H IV Last administered on 10/28/18at 03:59; Start 10/28/18 at 04:00; Stop 10/28/18 at 13:07 ; Status DC Vancomycin HCl (Vancomycin Trough Level) 1 each 1X ONCE MC ; Start 10/29/18 at 03:30; Stop 10/29/18 at 03:30; Status DC Sodium Chloride 1,000 ml @ 100 mls/hr Q10H IV Last administered on 10/29/18at 03:23; Start 10/27/18 at 19:00 Heparin Sodium (Porcine) (Heparin Sodium) 5,000 unit Q8HRS SQ Last administered on 10/29/18at 06:26; Start 10/27/18 at 22:00 Gabapentin (Neurontin) 300 mg TID PO Last administered on 10/28/18at 22:03; Start 10/27/18 at 21:00 Carvedilol (Coreg) 12.5 mg BIDWMEALS PO Last administered on 10/28/18at 16:27; Start 10/28/18 at 08:00 Ceftriaxone Sodium (Rocephin) 1 gm Q24H IVP ; Start 10/28/18 at 16:00; Stop at 16:00; Status DC Doxycycline Hyclate (Vibra-Tab) 100 mg BID PO ; Start 10/27/18 at 21:00; Status UNV Lisinopril (Prinivil) 20 mg DAILY PO Last administered on 10/28/18at 09:08; Start 10/28/18 at 09:00; Stop 10/28/18 at 12:05; Status DC Hydralazine HCl (Apresoline Inj) 10 mg PRN Q4HRS PRN IVP ELEVATED BP, SEE COMMENTS; Start 10/27/18 at 21:15 Albuterol Sulfate (Ventolin Neb Soln) 2.5 mg STK-MED ONCE .ROUTE ; Start at 23:48; Stop 10/28/18 at 00:52; Status DC Albuterol Sulfate (Ventolin Neb Soln) 2.5 mg PRN Q4HRS PRN NEB SHORTNESS OF BREATH Last administered on 10/28/18at 12:07; Start 10/27/18 at 23:00 Throat Lozenges (Cepacol Sore Throat Lozenge) 1 kaiser PRN Q2HRS PRN PO SORE THROAT Last administered on 10/29/18at 02:00; Start 10/28/18 at 05:00 Lactobacillus Rhamnosus (Culturelle) 1 cap BID PO Last administered on at 22:03; Start 10/28/18 at 09:00 Albuterol/ Ipratropium (Duoneb) 3 ml RTQID NEB Last administered on 10/29/18at 07:28; Start 10/28/18 at 12:30 Budesonide (Pulmicort) 0.5 mg RTBID NEB Last administered on 10/29/18at 07:29; Start 10/28/18 at 12:30 Losartan Potassium (Cozaar) 100 mg DAILY PO ; Start 10/28/18 at 12:30; Stop at 15:03; Status DC Losartan Potassium (Cozaar) 25 mg DAILY PO ; Start 10/29/18 at 09:00 Levofloxacin/ Dextrose 150 ml @ 100 mls/hr Q24H IV Last administered on at 16:29; Start 10/28/18 at 16:00 Active Scripts Active Reported Coreg (Carvedilol) 25 Mg Tablet 12.5 Mg PO BIDWMEALS Losartan Potassium 100 Mg Tablet 100 Mg PO DAILY Gabapentin 300 Mg Capsule 300 Mg PO TID Vitals/I & O Vital Sign - Last 24 Hours 10/28/18 10/28/18 10/28/18 10/28/18 09:07 09:08 11:00 12:08 Temp 98.0 98.0 Pulse 74 74 67 Resp 18 B/P (MAP) 155/73 155/73 155/79 (104) Pulse Ox 98 97 O2 Delivery Nasal Cannula Nasal Cannula O2 Flow Rate 3.0 3.0 10/28/18 10/28/18 10/28/18 10/28/18 15:00 15:42 16:27 19:15 Temp 97.7 97.8 97.7 97.8 Pulse 71 71 72 Resp 18 20 B/P (MAP) 148/78 (101) 148/78 157/89 (111) Pulse Ox 98 97 O2 Delivery Nasal Cannula Nasal Cannula Nasal Cannula O2 Flow Rate 3.0 3.0 3.0 10/28/18 10/28/18 10/28/18 10/28/18 19:49 19:49 20:00 23:35 Temp 97.8 97.8 Pulse 83 Resp 22 B/P (MAP) 165/89 (114) Pulse Ox 96 96 95 O2 Delivery Nasal Cannula Nasal Cannula Nasal Cannula Nasal Cannula O2 Flow Rate 3.0 3.0 3.0 3.0 10/29/18 10/29/18 10/29/18 03:00 03:23 07:29 Temp 98.9 98.9 Pulse 82 87 Resp 20 B/P (MAP) 202/95 (130) 202/95 Pulse Ox 93 O2 Delivery Nasal Cannula Nasal Cannula O2 Flow Rate 3.0 3.0 Intake and Output 10/28/18 10/28/18 10/29/18 14:59 22:59 06:59 Intake Total 600 ml 1100 ml Output Total 1000 ml 2050 ml Balance 600 ml -1000 ml -950 ml JESSICA LYNN MD Oct 29, 2018 08:02
[2018-10-29] MEDS: LACTOBACILLUS RHAMNOSUS GG 1 CAPSULE. PO SCH ×2 (08:47→22:10)
[2018-10-29] MEDS: GABAPENTIN 300 MG CAPSULE. PO SCH ×3 (08:47→22:10)
[2018-10-29] MEDS: CARVEDILOL 12.5 MG TABLET. PO SCH ×2 (08:48→16:46)
[2018-10-29] MEDS: LOSARTAN POTASSIUM 25 MG TABLET. PO SCH (08:48)
[2018-10-29] MEDS: hydrALAZINE 20 MG/ML VIAL. IVP PRN (08:50)
[2018-10-29] MEDS: DOXYCYCLINE HYCLATE 100 MG TABLET PO SCH ×2 (08:59→22:10)
[2018-10-29 09:02] LABS: BASO % 1 % (0-3); EOS % 0 % (0-3); HEMATOCRIT 28.6 % (39.0-53.0); HEMOGLOBIN 9.1 g/dL (13.0-17.5); LYMPH # 0.7 x10^3/uL (1.0-4.8); LYMPH % 12 % (24-48); MEAN CORPUSCULAR HEMOGLOBIN 26 pg (25-35); MEAN CORPUSCULAR HGB CONC 32 g/dL (31-37); MEAN CORPUSCULAR VOLUME 81 fL (79-100); MONO # 0.6 x10^3/uL (0.0-1.1); MONO % 11 % (0-9); NEUT # 4.5 x10^3uL (1.8-7.7); NEUT % 77 % (31-73); PLATELET COUNT 164 x10^3/uL (140-400); RED BLOOD COUNT 3.54 x10^6/uL (4.30-5.70); RED CELL DISTRIBUTION WIDTH 17.4 % (11.5-14.5); WHITE BLOOD COUNT 5.8 x10^3/uL (4.0-11.0)
[2018-10-29 09:09] LABS: ALBUMIN 2.7 g/dL (3.4-5.0); ALBUMIN/GLOBULIN RATIO 0.7 (1.0-1.7); CALCIUM 8.4 mg/dL (8.5-10.1); CREATININE 0.7 mg/dL (0.7-1.3); GFR 117.1; POTASSIUM 3.3 mmol/L (3.5-5.1); TOTAL BILIRUBIN 0.7 mg/dL (0.2-1.0); TOTAL PROTEIN 6.7 g/dL (6.4-8.2)
[2018-10-29 15:00] VITALS: BP 169/92
--- NOTE | 2018-10-29 15:28 | PDOC ---
SUBJECTIVE ROS C/O Cough, No other complaints. Was using Flonase and Su prior to Hospitalization OBJECTIVE Vital Signs Vital Signs Date Time Temp Pulse Resp B/P (MAP) Pulse Ox O2 Delivery O2 Flow Rate FiO2 10/29/18 15:00 98.2 68 20 169/92 (117) 96 Nasal Cannula 3.0 98.2 I & 0 Intake and Output 10/29/18 06:59 Intake Total 1700 ml Output Total 3050 ml Balance -1350 ml Intake Oral 1700 ml Output Urine Total 3050 ml # Voids 4 # Bowel Movements 1 PHYSICAL EXAM Physical Exam GENERAL: No apparent distress. HEENT: OM moist NECK: Supple LUNGS: course bilaterally HEART: RRR, S1, S2 present, pulses intact ABDOMEN: Soft, Obese EXTREMITIES: No edema. NEUROLOGIC: Grossly normal SKIN: No Rash No Haider, No SP or CVA tenderness DIAGNOSIS/ASSESSMENT Assessment & Plan Hyponatremia- ?Pneumonia, Poor PO intake Not on any Meds , Doesn't see a health care provider DC IV NS, restrict fluid intake to 1500 ml/24 hrs Reviewed current labs HTN- on antihypertensives Pneumonia -On Abx Anemia- ALANIZ as per primary Discussed with RN COMMENT/RELEVANT DATA Meds Current Medications Medications (Trade) Dose Ordered Sig/Jennifer Start Time Stop Time Status Last Admin Dose Admin Albuterol Sulfate (Ventolin Neb Soln) 2.5 mg PRN Q4HRS PRN 10/27/18 23:00 10/28/18 12:07 2.5 MG Albuterol/ Ipratropium (Duoneb) 3 ml RTQID 10/28/18 12:30 10/29/18 11:38 3 ML Budesonide (Pulmicort) 0.5 mg RTBID 10/28/18 12:30 10/29/18 07:29 0.5 MG Carvedilol (Coreg) 12.5 mg BIDWMEALS 10/28/18 08:00 10/29/18 08:48 12.5 MG Ceftriaxone Sodium (Rocephin) 1 gm Q24H 10/28/18 16:00 10/28/18 16:00 DC Clonidine HCl (Catapres) 0.1 mg STK-MED ONCE 10/27/18 18:12 10/27/18 18:13 DC Doxycycline Hyclate (Vibra-Tab) 100 mg BID 10/27/18 21:00 UNV Gabapentin (Neurontin) 300 mg TID 10/27/18 21:00 10/29/18 08:47 300 MG Heparin Sodium (Porcine) (Heparin Sodium) 5,000 unit Q8HRS 10/27/18 22:00 10/29/18 06:26 5,000 UNIT Hydralazine HCl (Apresoline Inj) 10 mg PRN Q4HRS PRN 10/27/18 21:15 10/29/18 08:50 10 MG Info (CONTRAST GIVEN -- Rx MONITORING) 1 each PRN DAILY PRN 10/27/18 16:45 10/29/18 16:44 Iohexol (Omnipaque 350 Mg/ml) 100 ml 1X ONCE 10/27/18 16:45 10/27/18 16:46 DC 10/27/18 16:54 100 ML Labetalol HCl (Normodyne Iv Push) 10 mg 1X ONCE 10/27/18 18:15 10/27/18 18:16 DC 10/27/18 18:15 10 MG Lactobacillus Rhamnosus (Culturelle) 1 cap BID 10/28/18 09:00 10/29/18 08:47 1 CAP Levofloxacin/ Dextrose 150 ml @ 100 mls/hr Q24H 10/28/18 16:00 10/28/18 16:29 100 MLS/HR Lisinopril (Prinivil) 20 mg DAILY 10/28/18 09:00 10/28/18 12:05 DC 10/28/18 09:08 20 MG Losartan Potassium (Cozaar) 25 mg DAILY 10/29/18 09:00 10/29/18 08:48 25 MG Methylprednisolone Sodium Succinate (SOLU-Medrol 125MG VIAL) 125 mg 1X ONCE 10/27/18 14:00 10/27/18 14:01 DC 10/27/18 14:10 125 MG Morphine Sulfate (Morphine Sulfate) 2 mg PRN Q2HR PRN 10/27/18 17:00 10/28/18 16:59 DC Ondansetron HCl (Zofran) 4 mg PRN Q8HRS PRN 10/27/18 17:00 10/28/18 16:59 DC Sodium Chloride 1,000 ml @ 100 mls/hr Q10H 10/27/18 19:00 10/29/18 15:20 DC 10/29/18 03:23 100 MLS/HR Throat Lozenges (Cepacol Sore Throat Lozenge) 1 nicola PRN Q2HRS PRN 10/28/18 05:00 10/29/18 02:00 1 NICOLA Vancomycin HCl (Vanco Per Pharmacy) 1 each PRN DAILY PRN 10/27/18 16:00 10/28/18 13:07 DC 10/27/18 18:37 1 EACH Vancomycin HCl (Vancomycin Trough Level) 1 each 1X ONCE 10/29/18 03:30 10/29/18 03:30 DC Vancomycin HCl 2 gm/Sodium Chloride 500 ml @ 250 mls/hr Q12H 10/28/18 04:00 10/28/18 13:07 DC 10/28/18 03:59 250 MLS/HR Lab Laboratory Tests Test 10/28/18 15:40 10/29/18 08:45 Urine Osmolality 195 mOsmol/kg (.) Urine Sodium <60 mmol/L (Not Estab.) Urine Potassium 18.4 mmol/L (Not Estab.) Urine Chloride <60 mmol/L (Not Estab.) White Blood Count 5.8 x10^3/uL (4.0-11.0) Red Blood Count 3.54 x10^6/uL (4.30-5.70) Hemoglobin 9.1 g/dL (13.0-17.5) Hematocrit 28.6 % (39.0-53.0) Mean Corpuscular Volume 81 fL (79-100) Mean Corpuscular Hemoglobin 26 pg (25-35) Mean Corpuscular Hemoglobin Concent 32 g/dL (31-37) Red Cell Distribution Width 17.4 % (11.5-14.5) Platelet Count 164 x10^3/uL (140-400) Neutrophils (%) (Auto) 77 % (31-73) Lymphocytes (%) (Auto) 12 % (24-48) Monocytes (%) (Auto) 11 % (0-9) Eosinophils (%) (Auto) 0 % (0-3) Basophils (%) (Auto) 1 % (0-3) Neutrophils # (Auto) 4.5 x10^3uL (1.8-7.7) Lymphocytes # (Auto) 0.7 x10^3/uL (1.0-4.8) Monocytes # (Auto) 0.6 x10^3/uL (0.0-1.1) Eosinophils # (Auto) 0.0 x10^3/uL (0.0-0.7) Basophils # (Auto) 0.0 x10^3/uL (0.0-0.2) Sodium Level 129 mmol/L (136-145) Potassium Level 3.3 mmol/L (3.5-5.1) Chloride Level 95 mmol/L (98-107) Carbon Dioxide Level 23 mmol/L (21-32) Anion Gap 11 (6-14) Blood Urea Nitrogen 8 mg/dL (8-26) Creatinine 0.7 mg/dL (0.7-1.3) Estimated GFR (Cockcroft-Gault) 117.1 BUN/Creatinine Ratio 11 (6-20) Glucose Level 97 mg/dL (70-99) Calcium Level 8.4 mg/dL (8.5-10.1) Total Bilirubin 0.7 mg/dL (0.2-1.0) Aspartate Amino Transf (AST/SGOT) 120 U/L (15-37) Alanine Aminotransferase (ALT/SGPT) 81 U/L (16-63) Alkaline Phosphatase 64 U/L (46-116) Total Protein 6.7 g/dL (6.4-8.2) Albumin 2.7 g/dL (3.4-5.0) Albumin/Globulin Ratio 0.7 (1.0-1.7) Results All relevant outside records, renal labs, imaging studies, telemetry/EKG's were reviewed. IDANIA DENNIS MD Oct 29, 2018 15:28
[2018-10-29 19:00] VITALS: BP 161/91
[2018-10-29 23:00] VITALS: BP 201/98
[2018-10-30] VITALS (8 sets, daily range): BP systolic 129–189; BP diastolic 78–102
[2018-10-30] MEDS: hydrALAZINE 20 MG/ML VIAL. IVP PRN (02:38)
[2018-10-30 05:07] LABS: ALBUMIN 2.9 g/dL (3.4-5.0); ALBUMIN/GLOBULIN RATIO 0.7 (1.0-1.7); CALCIUM 8.7 mg/dL (8.5-10.1); CREATININE 0.8 mg/dL (0.7-1.3); GFR 100.4; POTASSIUM 3.1 mmol/L (3.5-5.1); TOTAL PROTEIN 6.9 g/dL (6.4-8.2)
[2018-10-30] MEDS: HEPARIN for SUB-Q USE 5,000 UNIT/ML VIAL. SQ SCH ×3 (07:14→20:54)
[2018-10-30] MEDS: BUDESONIDE 0.5 MG/2 ML NEBU. NEB SCH ×2 (07:38→19:58)
[2018-10-30] MEDS: IPRATRPIUM/ALBUTEROL 0.5/2.5MG 3 ML NEBU. NEB SCH ×4 (07:38→19:58)
[2018-10-30] MEDS: LACTOBACILLUS RHAMNOSUS GG 1 CAPSULE. PO SCH ×2 (08:52→20:52)
[2018-10-30] MEDS: CARVEDILOL 12.5 MG TABLET. PO SCH ×2 (08:52→17:47)
[2018-10-30] MEDS: GABAPENTIN 300 MG CAPSULE. PO SCH ×3 (08:52→20:52)
[2018-10-30] MEDS: DOXYCYCLINE HYCLATE 100 MG TABLET PO SCH ×2 (08:52→20:52)
[2018-10-30] MEDS: LOSARTAN POTASSIUM 25 MG TABLET. PO SCH (08:53)
--- NOTE | 2018-10-30 09:04 | PDOC ---
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 uncontrolled and untreated BP check TTE check abdominal US check a1c check TSH repeat LFTSl dvt ppx: heparin full code History of Present Illness History of Present Illness 53 year old male with history of hypertension not currently taking meds who presents with SOB on exertion and at rest with associated cough and congestion. patient does not have a PCP. does not take BP meds anymore, last took over a year ago. reports decreased PO intake. no nausea vomiting diarrhea. denies hx of COPD or CHF. scheduled for Left Hip sx 11/[address] chest concerning for PNA. also found to have elevated BNP 440 Sodium stable today, K lower at 3.1, feeling less short of breath. Transaminitis noted. He denies any CP. Feeling weak and still coughing Vitals Vitals Vital Signs Date Time Temp Pulse Resp B/P (MAP) Pulse Ox O2 Delivery O2 Flow Rate FiO2 10/30/18 08:53 96 170/99 10/30/18 07:40 98.0 18 95 Room Air 98.0 10/29/18 20:30 3.0 Physical Exam General: Alert, Oriented X3, Cooperative Heart: Regular rate, Normal S1, Normal S2 Lungs: Wheezing, Crackles Abdomen: Normal bowel sounds, Soft Extremities: No clubbing, No cyanosis Skin: No rashes, No breakdown Labs LABS Laboratory Tests Test 10/30/18 04:15 Sodium Level 130 mmol/L (136-145) Potassium Level 3.1 mmol/L (3.5-5.1) Chloride Level 95 mmol/L (98-107) Carbon Dioxide Level 22 mmol/L (21-32) Anion Gap 13 (6-14) Blood Urea Nitrogen 8 mg/dL (8-26) Creatinine 0.8 mg/dL (0.7-1.3) Estimated GFR (Cockcroft-Gault) 100.4 BUN/Creatinine Ratio 10 (6-20) Glucose Level 105 mg/dL (70-99) Calcium Level 8.7 mg/dL (8.5-10.1) Total Bilirubin 1.0 mg/dL (0.2-1.0) Aspartate Amino Transf (AST/SGOT) 115 U/L (15-37) Alanine Aminotransferase (ALT/SGPT) 80 U/L (16-63) Alkaline Phosphatase 78 U/L (46-116) Total Protein 6.9 g/dL (6.4-8.2) Albumin 2.9 g/dL (3.4-5.0) Albumin/Globulin Ratio 0.7 (1.0-1.7) Assessment and Plan Assessmemt and Plan Problems Medical Problems: (1) Hypertension Status: Acute (2) Hyponatremia Status: Acute (3) Right lower lobe pneumonia Status: Acute (4) Shortness of breath Status: Acute (5) Tachycardia Status: Acute Comment Review of Relevant I have reviewed the following items jason (where applicable) has been applied. Labs Laboratory Tests Test 10/28/18 09:01 10/28/18 15:40 10/29/18 08:45 10/30/18 04:15 Lactic Acid Level 1.6 mmol/L (0.4-2.0) Urine Osmolality 195 mOsmol/kg (.) Urine Sodium <60 mmol/L (Not Estab.) Urine Potassium 18.4 mmol/L (Not Estab.) Urine Chloride <60 mmol/L (Not Estab.) White Blood Count 5.8 x10^3/uL (4.0-11.0) Red Blood Count 3.54 x10^6/uL (4.30-5.70) Hemoglobin 9.1 g/dL (13.0-17.5) Hematocrit 28.6 % (39.0-53.0) Mean Corpuscular Volume 81 fL (79-100) Mean Corpuscular Hemoglobin 26 pg (25-35) Mean Corpuscular Hemoglobin Concent 32 g/dL (31-37) Red Cell Distribution Width 17.4 % (11.5-14.5) Platelet Count 164 x10^3/uL (140-400) Neutrophils (%) (Auto) 77 % (31-73) Lymphocytes (%) (Auto) 12 % (24-48) Monocytes (%) (Auto) 11 % (0-9) Eosinophils (%) (Auto) 0 % (0-3) Basophils (%) (Auto) 1 % (0-3) Neutrophils # (Auto) 4.5 x10^3uL (1.8-7.7) Lymphocytes # (Auto) 0.7 x10^3/uL (1.0-4.8) Monocytes # (Auto) 0.6 x10^3/uL (0.0-1.1) Eosinophils # (Auto) 0.0 x10^3/uL (0.0-0.7) Basophils # (Auto) 0.0 x10^3/uL (0.0-0.2) Sodium Level 129 mmol/L (136-145) 130 mmol/L (136-145) Potassium Level 3.3 mmol/L (3.5-5.1) 3.1 mmol/L (3.5-5.1) Chloride Level 95 mmol/L (98-107) 95 mmol/L (98-107) Carbon Dioxide Level 23 mmol/L (21-32) 22 mmol/L (21-32) Anion Gap 11 (6-14) 13 (6-14) Blood Urea Nitrogen 8 mg/dL (8-26) 8 mg/dL (8-26) Creatinine 0.7 mg/dL (0.7-1.3) 0.8 mg/dL (0.7-1.3) Estimated GFR (Cockcroft-Gault) 117.1 100.4 BUN/Creatinine Ratio 11 (6-20) 10 (6-20) Glucose Level 97 mg/dL (70-99) 105 mg/dL (70-99) Calcium Level 8.4 mg/dL (8.5-10.1) 8.7 mg/dL (8.5-10.1) Total Bilirubin 0.7 mg/dL (0.2-1.0) 1.0 mg/dL (0.2-1.0) Aspartate Amino Transf (AST/SGOT) 120 U/L (15-37) 115 U/L (15-37) Alanine Aminotransferase (ALT/SGPT) 81 U/L (16-63) 80 U/L (16-63) Alkaline Phosphatase 64 U/L (46-116) 78 U/L (46-116) Total Protein 6.7 g/dL (6.4-8.2) 6.9 g/dL (6.4-8.2) Albumin 2.7 g/dL (3.4-5.0) 2.9 g/dL (3.4-5.0) Albumin/Globulin Ratio 0.7 (1.0-1.7) 0.7 (1.0-1.7) Laboratory Tests Test 10/30/18 04:15 Sodium Level 130 mmol/L (136-145) Potassium Level 3.1 mmol/L (3.5-5.1) Chloride Level 95 mmol/L (98-107) Carbon Dioxide Level 22 mmol/L (21-32) Anion Gap 13 (6-14) Blood Urea Nitrogen 8 mg/dL (8-26) Creatinine 0.8 mg/dL (0.7-1.3) Estimated GFR (Cockcroft-Gault) 100.4 BUN/Creatinine Ratio 10 (6-20) Glucose Level 105 mg/dL (70-99) Calcium Level 8.7 mg/dL (8.5-10.1) Total Bilirubin 1.0 mg/dL (0.2-1.0) Aspartate Amino Transf (AST/SGOT) 115 U/L (15-37) Alanine Aminotransferase (ALT/SGPT) 80 U/L (16-63) Alkaline Phosphatase 78 U/L (46-116) Total Protein 6.9 g/dL (6.4-8.2) Albumin 2.9 g/dL (3.4-5.0) Albumin/Globulin Ratio 0.7 (1.0-1.7) Microbiology 10/27/18 Blood Culture - Preliminary, Resulted NO GROWTH AFTER 2 DAYS Medications Current Medications Albuterol/ Ipratropium (Duoneb) 3 ml 1X ONCE NEB Last administered on at 14:03; Start 10/27/18 at 14:00; Stop 10/27/18 at 14:01; Status DC Methylprednisolone Sodium Succinate (SOLU-Medrol 125MG VIAL) 125 mg 1X ONCE IV Last administered on 10/27/18at 14:10; Start 10/27/18 at 14:00; Stop 10/27/18 at 14:01; Status DC Labetalol HCl (Normodyne Iv Push) 10 mg 1X ONCE IVP Last administered on at 14:34; Start 10/27/18 at 14:15; Stop 10/27/18 at 14:16; Status DC Sodium Chloride 1,000 ml @ 1,000 mls/hr 1X ONCE IV Last administered on at 15:20; Start 10/27/18 at 15:00; Stop 10/27/18 at 15:59; Status DC Sodium Chloride 1,000 ml @ 1,000 mls/hr 1X ONCE IV Last administered on at 16:01; Start 10/27/18 at 15:45; Stop 10/27/18 at 16:44; Status DC Vancomycin HCl (Vanco Per Pharmacy) 1 each PRN DAILY PRN MC SEE COMMENTS Last administered on 10/27/18at 18:37; Start 10/27/18 at 16:00; Stop 10/28/18 at 13:07 ; Status DC Ceftriaxone Sodium (Rocephin) 1 gm 1X ONCE IVP Last administered on 10/27/18 16:03; Start 10/27/18 at 16:00; Stop 10/27/18 at 16:01; Status DC Vancomycin HCl 2 gm/Sodium Chloride 500 ml @ 250 mls/hr 1X ONCE IV Last administered on 10/27/18 16:02; Start 10/27/18 at 16:30; Stop 10/28/18 at 13:07 ; Status DC Doxycycline Hyclate (Vibra-Tab) 100 mg BID PO Last administered on 10/30/18at 08 :52; Start 10/27/18 at 21:00 Iohexol (Omnipaque 350 Mg/ml) 100 ml 1X ONCE IV Last administered on at 16:54; Start 10/27/18 at 16:45; Stop 10/27/18 at 16:46; Status DC Info (CONTRAST GIVEN -- Rx MONITORING) 1 each PRN DAILY PRN MC SEE COMMENTS; Start 10/27/18 at 16:45; Stop 10/29/18 at 16:44; Status DC Ondansetron HCl (Zofran) 4 mg PRN Q8HRS PRN IV NAUSEA/VOMITING; Start 10/27/18 at 17:00; Stop 10/28/18 at 16:59; Status DC Morphine Sulfate (Morphine Sulfate) 2 mg PRN Q2HR PRN IV PAIN; Start 10/27/18 at 17:00; Stop 10/28/18 at 16:59; Status DC Sodium Chloride 1,000 ml @ 125 mls/hr 1X ONCE IV ; Start 10/27/18 at 17:00; Stop 10/28/18 at 00:59; Status DC Labetalol HCl (Normodyne Iv Push) 10 mg 1X ONCE IVP Last administered on at 18:15; Start 10/27/18 at 18:15; Stop 10/27/18 at 18:16; Status DC Clonidine HCl (Catapres) 0.1 mg 1X ONCE PO Last administered on 10/27/18at 18: 15; Start 10/27/18 at 18:15; Stop 10/27/18 at 18:16; Status DC Clonidine HCl (Catapres) 0.1 mg PRN Q8HRS PRN PO HYPERTENSION, SEE COMMENTS Last administered on 10/29/18at 22:32; Start 10/27/18 at 18:15 Clonidine HCl (Catapres) 0.1 mg STK-MED ONCE .ROUTE ; Start 10/27/18 at 18:12; Stop 10/27/18 at 18:13; Status DC Vancomycin HCl 2 gm/Sodium Chloride 500 ml @ 250 mls/hr Q12H IV Last administered on 10/28/18at 03:59; Start 10/28/18 at 04:00; Stop 10/28/18 at 13:07 ; Status DC Vancomycin HCl (Vancomycin Trough Level) 1 each 1X ONCE MC ; Start 10/29/18 at 03:30; Stop 10/29/18 at 03:30; Status DC Sodium Chloride 1,000 ml @ 100 mls/hr Q10H IV Last administered on 10/29/18at 03:23; Start 10/27/18 at 19:00; Stop 10/29/18 at 15:20; Status DC Heparin Sodium (Porcine) (Heparin Sodium) 5,000 unit Q8HRS SQ Last administered on 10/30/18at 07:14; Start 10/27/18 at 22:00 Gabapentin (Neurontin) 300 mg TID PO Last administered on 10/30/18at 08:52; Start 10/27/18 at 21:00 Carvedilol (Coreg) 12.5 mg BIDWMEALS PO Last administered on 10/30/18 08:52; Start 10/28/18 at 08:00 Ceftriaxone Sodium (Rocephin) 1 gm Q24H IVP ; Start 10/28/18 at 16:00; Stop at 16:00; Status DC Doxycycline Hyclate (Vibra-Tab) 100 mg BID PO ; Start 10/27/18 at 21:00; Status UNV Lisinopril (Prinivil) 20 mg DAILY PO Last administered on 10/28/18at 09:08; Start 10/28/18 at 09:00; Stop 10/28/18 at 12:05; Status DC Hydralazine HCl (Apresoline Inj) 10 mg PRN Q4HRS PRN IVP ELEVATED BP, SEE COMMENTS Last administered on 10/30/18at 02:38; Start 10/27/18 at 21:15 Albuterol Sulfate (Ventolin Neb Soln) 2.5 mg STK-MED ONCE .ROUTE ; Start at 23:48; Stop 10/28/18 at 00:52; Status DC Albuterol Sulfate (Ventolin Neb Soln) 2.5 mg PRN Q4HRS PRN NEB SHORTNESS OF BREATH Last administered on 10/28/18 12:07; Start 10/27/18 at 23:00 Throat Lozenges (Cepacol Sore Throat Lozenge) 1 kaiser PRN Q2HRS PRN PO SORE THROAT Last administered on 10/29/18at 22:22; Start 10/28/18 at 05:00 Lactobacillus Rhamnosus (Culturelle) 1 cap BID PO Last administered on at 08:52; Start 10/28/18 at 09:00 Albuterol/ Ipratropium (Duoneb) 3 ml RTQID NEB Last administered on 10/29/18 20:30; Start 10/28/18 at 12:30 Budesonide (Pulmicort) 0.5 mg RTBID NEB Last administered on 10/29/18at 20:30; Start 10/28/18 at 12:30 Losartan Potassium (Cozaar) 100 mg DAILY PO ; Start 10/28/18 at 12:30; Stop at 15:03; Status DC Losartan Potassium (Cozaar) 25 mg DAILY PO Last administered on 10/30/18at 08:53 ; Start 10/29/18 at 09:00 Levofloxacin/ Dextrose 150 ml @ 100 mls/hr Q24H IV Last administered on at 16:48; Start 10/28/18 at 16:00 Active Scripts Active Reported Coreg (Carvedilol) 25 Mg Tablet 12.5 Mg PO BIDWMEALS Losartan Potassium 100 Mg Tablet 100 Mg PO DAILY Gabapentin 300 Mg Capsule 300 Mg PO TID Vitals/I & O Vital Sign - Last 24 Hours 10/29/18 10/29/18 10/29/18 10/29/18 11:39 15:00 15:50 16:46 Temp 98.2 98.2 Pulse 68 68 Resp 20 B/P (MAP) 169/92 (117) 169/92 Pulse Ox 96 O2 Delivery Nasal Cannula Nasal Cannula Nasal Cannula O2 Flow Rate 3.0 3.0 3.0 10/29/18 10/29/18 10/29/18 10/29/18 19:00 20:00 20:30 22:32 Temp 97.6 97.6 Pulse 120 79 Resp 20 B/P (MAP) 161/91 (114) 201/98 Pulse Ox 96 O2 Delivery Room Air Room Air Nasal Cannula O2 Flow Rate 3.0 10/29/18 10/30/18 10/30/18 10/30/18 23:00 01:04 02:38 03:00 Temp 98.8 98.1 98.8 98.1 Pulse 73 80 80 78 Resp 18 16 B/P (MAP) 201/98 (132) 182/89 (120) 182/89 189/98 (128) Pulse Ox 94 92 O2 Delivery Room Air Room Air 10/30/18 10/30/18 10/30/18 10/30/18 03:30 07:40 08:52 08:53 Temp 98.0 98.0 Pulse 90 96 96 96 Resp 18 B/P (MAP) 150/78 (102) 170/99 (122) 170/99 170/99 Pulse Ox 95 O2 Delivery Room Air Intake and Output 10/29/18 10/29/18 10/30/18 15:00 23:00 07:00 Intake Total 600 ml Output Total 1000 ml 900 ml Balance -400 ml -900 ml JESSICA LYNN MD Oct 30, 2018 09:04
[2018-10-30] MEDS ORDERED: POTASSIUM CHLORIDE 20 MEQ TABLET.ER. PO ONE (09:15)
[2018-10-30 09:25] LABS: MAGNESIUM 1.6 mg/dL (1.8-2.4); PHOSPHORUS 2.3 mg/dL (2.6-4.7)
[2018-10-30] MEDS: FUROSEMIDE 40 MG/4 ML VIAL. IVP SCH ×2 (09:33→13:50)
[2018-10-30] MEDS ORDERED: MAGNESIUM SULFATE 4GM 100 ML IV ONE (10:00)
[2018-10-30] MEDS ORDERED: CARV25TA PO (11:16)
[2018-10-30] MEDS ORDERED: LOSA100T14 PO (11:16)
[2018-10-30] MEDS ORDERED: BUDE10.22 IH (11:17)
[2018-10-30] MEDS ORDERED: LACT1CAP19 PO (11:17)
[2018-10-30] MEDS ORDERED: LEVO750T31 PO (11:17)
--- NOTE | 2018-10-30 11:22 | PDOC3 ---
Discharge Summary Visit Information Date of Admission: Oct 27, 2018 Date of Discharge: Nov 01, 2018 Admitting Diagnosis: RLL Pneumonia, HTN, hyponatremia Final Diagnosis Problems Medical Problems: (1) Hypertension Status: Acute (2) Hyponatremia Status: Acute (3) Right lower lobe pneumonia Status: Acute (4) Shortness of breath Status: Acute (5) Tachycardia Status: Acute Brief Hospital Course Allergies Allergies Coded Allergies Type Severity Reaction Last Updated Verified clarithromycin Allergy Intermediate 10/27/18 Yes Vital Signs Vital Signs Date Time Temp Pulse Resp B/P (MAP) Pulse Ox O2 Delivery O2 Flow Rate FiO2 10/30/18 08:53 96 170/99 10/30/18 08:00 Room Air 10/30/18 07:40 98.0 18 95 98.0 10/29/18 20:30 3.0 Lab Results Laboratory Tests Test 10/28/18 15:40 10/29/18 08:45 10/30/18 04:15 Urine Osmolality 195 mOsmol/kg (.) Urine Sodium <60 mmol/L (Not Estab.) Urine Potassium 18.4 mmol/L (Not Estab.) Urine Chloride <60 mmol/L (Not Estab.) White Blood Count 5.8 x10^3/uL (4.0-11.0) Red Blood Count 3.54 x10^6/uL (4.30-5.70) Hemoglobin 9.1 g/dL (13.0-17.5) Hematocrit 28.6 % (39.0-53.0) Mean Corpuscular Volume 81 fL (79-100) Mean Corpuscular Hemoglobin 26 pg (25-35) Mean Corpuscular Hemoglobin Concent 32 g/dL (31-37) Red Cell Distribution Width 17.4 % (11.5-14.5) Platelet Count 164 x10^3/uL (140-400) Neutrophils (%) (Auto) 77 % (31-73) Lymphocytes (%) (Auto) 12 % (24-48) Monocytes (%) (Auto) 11 % (0-9) Eosinophils (%) (Auto) 0 % (0-3) Basophils (%) (Auto) 1 % (0-3) Neutrophils # (Auto) 4.5 x10^3uL (1.8-7.7) Lymphocytes # (Auto) 0.7 x10^3/uL (1.0-4.8) Monocytes # (Auto) 0.6 x10^3/uL (0.0-1.1) Eosinophils # (Auto) 0.0 x10^3/uL (0.0-0.7) Basophils # (Auto) 0.0 x10^3/uL (0.0-0.2) Sodium Level 129 mmol/L (136-145) 130 mmol/L (136-145) Potassium Level 3.3 mmol/L (3.5-5.1) 3.1 mmol/L (3.5-5.1) Chloride Level 95 mmol/L (98-107) 95 mmol/L (98-107) Carbon Dioxide Level 23 mmol/L (21-32) 22 mmol/L (21-32) Anion Gap 11 (6-14) 13 (6-14) Blood Urea Nitrogen 8 mg/dL (8-26) 8 mg/dL (8-26) Creatinine 0.7 mg/dL (0.7-1.3) 0.8 mg/dL (0.7-1.3) Estimated GFR (Cockcroft-Gault) 117.1 100.4 BUN/Creatinine Ratio 11 (6-20) 10 (6-20) Glucose Level 97 mg/dL (70-99) 105 mg/dL (70-99) Calcium Level 8.4 mg/dL (8.5-10.1) 8.7 mg/dL (8.5-10.1) Total Bilirubin 0.7 mg/dL (0.2-1.0) 1.0 mg/dL (0.2-1.0) Aspartate Amino Transf (AST/SGOT) 120 U/L (15-37) 115 U/L (15-37) Alanine Aminotransferase (ALT/SGPT) 81 U/L (16-63) 80 U/L (16-63) Alkaline Phosphatase 64 U/L (46-116) 78 U/L (46-116) Total Protein 6.7 g/dL (6.4-8.2) 6.9 g/dL (6.4-8.2) Albumin 2.7 g/dL (3.4-5.0) 2.9 g/dL (3.4-5.0) Albumin/Globulin Ratio 0.7 (1.0-1.7) 0.7 (1.0-1.7) Phosphorus Level 2.3 mg/dL (2.6-4.7) Magnesium Level 1.6 mg/dL (1.8-2.4) Laboratory Tests Test 10/30/18 04:15 Sodium Level 130 mmol/L (136-145) Potassium Level 3.1 mmol/L (3.5-5.1) Chloride Level 95 mmol/L (98-107) Carbon Dioxide Level 22 mmol/L (21-32) Anion Gap 13 (6-14) Blood Urea Nitrogen 8 mg/dL (8-26) Creatinine 0.8 mg/dL (0.7-1.3) Estimated GFR (Cockcroft-Gault) 100.4 BUN/Creatinine Ratio 10 (6-20) Glucose Level 105 mg/dL (70-99) Calcium Level 8.7 mg/dL (8.5-10.1) Phosphorus Level 2.3 mg/dL (2.6-4.7) Magnesium Level 1.6 mg/dL (1.8-2.4) Total Bilirubin 1.0 mg/dL (0.2-1.0) Aspartate Amino Transf (AST/SGOT) 115 U/L (15-37) Alanine Aminotransferase (ALT/SGPT) 80 U/L (16-63) Alkaline Phosphatase 78 U/L (46-116) Total Protein 6.9 g/dL (6.4-8.2) Albumin 2.9 g/dL (3.4-5.0) Albumin/Globulin Ratio 0.7 (1.0-1.7) Brief Hospital Course Mr Peñaloza 53 year old male with history of hypertension not currently taking meds who presents with SOB on exertion and at rest with associated cough and congestion. patient does not have a PCP. does not take BP meds anymore, last took over a year ago. reports decreased PO intake. no nausea vomiting diarrhea. denies hx of COPD or CHF. scheduled for Left Hip sx 11/10 per patient. Found anemic with Hb 9, large transaminitis with diffuse fatty infiltration of liver and hyponatremia. Seen by nephrology for hyponatremia, placed on fluid restriction. D dimer positive, underwent CT chest concerning for PNA. also found to have elevated BNP 440 Sodium stable today, K lower at 3.1, mag 1.6, replaced. feeling less short of breath. Transaminitis noted improved. Hepatitis series negative. He denies any CP. Feeling weak and still coughing and not sleeping, he wants to leave the hospital Seen by GI, likely fatty liver 2/2 ETOH use. Started on democlocycline by nephrology. Needs f/u BMP outpatient prior to his hip surgery, see nephrology outpatient Advised he needs a PCP to continue anemia w/u and his left hip surgery should be delayed. Greater than 30 minutes spent on discharge. 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 uncontrolled and untreated BP TTE - dilated cardiomyopathy, advised COREG, LOSARTAN, f/u cardiology outpatient. normal EF check a1c - IFG check TSH - WNL repeat LFTS - trended down Greater than 30 minutes spent on discharge Discharge Information Condition at Discharge: Improved Follow Up: Weeks (2) Disposition/Orders: D/C to Home Scheduled Budesonide/Formoterol Fumarate (Symbicort 80-4.5 Mcg Inhaler) 10.2 Gm Hfa.aer.ad , 1 PUFF IH BID for COPD for 30 Days, #1 Prescribed by: JESSICA LYNN MD on 10/30/18 1117 Carvedilol (Coreg) 25 Mg Tablet, 25 MG PO BIDWMEALS for CARDIAC for 30 Days, #60 Prescribed by: JESSICA LYNN MD on 10/30/18 1116 Gabapentin (Gabapentin) 300 Mg Capsule, 300 MG PO TID for NEUROGENIC PAIN, ( Reported) Entered as Reported by: JUVENTINO EM on 10/27/182011 Last Action: Continued on 10/27/182055 by SILVIA WASHINGTON MD Lactobacillus Rhamnosus Gg (Culturelle) 1 Each Cap.sprink, 1 CAP PO BID for diarrhea for 7 Days, #14 Prescribed by: JESSICA LYNN MD on 10/30/18 1117 Levofloxacin (Levaquin) 750 Mg Tablet, 1 TAB PO DAILY for Legionella pneumonia for 7 Days, #7 Prescribed by: JESSICA LYNN MD on 10/30/18 1117 Losartan Potassium (Losartan Potassium) 100 Mg Tablet, 100 MG PO DAILY for HYPERTENSION for 30 Days, #30 Ref 2 Prescribed by: JESSICA LYNN MD on 10/30/18 1116 Potassium Chloride (Potassium Chloride) 20 Meq Tablet.er, 20 MEQ PO DAILY for Hypokalemia for 30 Days, #30 Prescribed by: JESSICA LYNN MD on 11/01/18 1257 [Demeclocycline Hcl] 150 MG TABLET, 300 MG PO Q12HR for SIADH for 30 Days, #60 Prescribed by: JESSICA LYNN MD on 11/01/18 1340 JESSICA LYNN MD Oct 30, 2018 11:22
--- NOTE | 2018-10-30 12:13 | PDOC ---
SUBJECTIVE ROS Feeling better OBJECTIVE Vital Signs Vital Signs Date Time Temp Pulse Resp B/P (MAP) Pulse Ox O2 Delivery O2 Flow Rate FiO2 10/30/18 11:30 94 Room Air 10/30/18 11:25 97.4 80 18 139/86 (103) 97.4 10/29/18 20:30 3.0 I & 0 Intake and Output 10/30/18 07:00 Intake Total 600 ml Output Total 1900 ml Balance -1300 ml Intake Oral 600 ml Output Urine Total 1900 ml # Voids 1 PHYSICAL EXAM Physical Exam GENERAL: No apparent distress. HEENT: OM moist NECK: Supple LUNGS: course bilaterally HEART: RRR, S1, S2 present, pulses intact ABDOMEN: Soft, Obese EXTREMITIES: No edema. NEUROLOGIC: Grossly normal SKIN: No Rash No Haider, No SP or CVA tenderness DIAGNOSIS/ASSESSMENT Assessment & Plan Hyponatremia- ?Pneumonia, Poor PO intake restrict fluid intake to 1500 ml/24 hrs , off ivf Monitor Hypokalemia- replaced Hypmag- Mild Replacing HTN- on antihypertensives Pneumonia -On Abx Legionella Anemia- ALANIZ as per primary Discussed with RN COMMENT/RELEVANT DATA Meds Current Medications Medications (Trade) Dose Ordered Sig/Jennifer Start Time Stop Time Status Last Admin Dose Admin Albuterol Sulfate (Ventolin Neb Soln) 2.5 mg PRN Q4HRS PRN 10/27/18 23:00 10/28/18 12:07 2.5 MG Albuterol/ Ipratropium (Duoneb) 3 ml RTQID 10/28/18 12:30 10/29/18 20:30 3 ML Budesonide (Pulmicort) 0.5 mg RTBID 10/28/18 12:30 10/29/18 20:30 0.5 MG Carvedilol (Coreg) 25 mg BIDWMEALS 10/30/18 17:00 Ceftriaxone Sodium (Rocephin) 1 gm Q24H 10/28/18 16:00 10/28/18 16:00 DC Clonidine HCl (Catapres) 0.1 mg STK-MED ONCE 10/27/18 18:12 10/27/18 18:13 DC Doxycycline Hyclate (Vibra-Tab) 100 mg BID 10/27/18 21:00 UNV Furosemide (Lasix) 40 mg [id number] 10/30/18 09:15 10/30/18 09:33 40 MG Gabapentin (Neurontin) 300 mg TID 10/27/18 21:00 10/30/18 08:52 300 MG Heparin Sodium (Porcine) (Heparin Sodium) 5,000 unit Q8HRS 10/27/18 22:00 10/30/18 07:14 5,000 UNIT Hydralazine HCl (Apresoline Inj) 10 mg PRN Q4HRS PRN 10/27/18 21:15 10/30/18 02:38 10 MG Info (CONTRAST GIVEN -- Rx MONITORING) 1 each PRN DAILY PRN 10/27/18 16:45 10/29/18 16:44 DC Iohexol (Omnipaque 350 Mg/ml) 100 ml 1X ONCE 10/27/18 16:45 10/27/18 16:46 DC 10/27/18 16:54 100 ML Labetalol HCl (Normodyne Iv Push) 10 mg 1X ONCE 10/27/18 18:15 10/27/18 18:16 DC 10/27/18 18:15 10 MG Lactobacillus Rhamnosus (Culturelle) 1 cap BID 10/28/18 09:00 10/30/18 08:52 1 CAP Levofloxacin/ Dextrose 150 ml @ 100 mls/hr Q24H 10/28/18 16:00 10/29/18 16:48 100 MLS/HR Lisinopril (Prinivil) 20 mg DAILY 10/28/18 09:00 10/28/18 12:05 DC 10/28/18 09:08 20 MG Losartan Potassium (Cozaar) 50 mg DAILY 10/31/18 09:00 Magnesium Sulfate/ Dextrose 100 ml @ 25 mls/hr 1X ONCE 10/30/18 10:00 10/30/18 13:59 10/30/18 10:45 25 MLS/HR Methylprednisolone Sodium Succinate (SOLU-Medrol 125MG VIAL) 125 mg 1X ONCE 10/27/18 14:00 10/27/18 14:01 DC 10/27/18 14:10 125 MG Morphine Sulfate (Morphine Sulfate) 2 mg PRN Q2HR PRN 10/27/18 17:00 10/28/18 16:59 DC Ondansetron HCl (Zofran) 4 mg PRN Q8HRS PRN 10/27/18 17:00 10/28/18 16:59 DC Potassium Chloride (Klor-Con) 40 meq 1X ONCE 10/30/18 09:15 10/30/18 09:16 DC 10/30/18 09:33 40 MEQ Sodium Chloride 1,000 ml @ 100 mls/hr Q10H 10/27/18 19:00 10/29/18 15:20 DC 10/29/18 03:23 100 MLS/HR Throat Lozenges (Cepacol Sore Throat Lozenge) 1 nicola PRN Q2HRS PRN 10/28/18 05:00 10/29/18 22:22 1 NICOLA Vancomycin HCl (Vanco Per Pharmacy) 1 each PRN DAILY PRN 10/27/18 16:00 10/28/18 13:07 DC 10/27/18 18:37 1 EACH Vancomycin HCl (Vancomycin Trough Level) 1 each 1X ONCE 10/29/18 03:30 10/29/18 03:30 DC Vancomycin HCl 2 gm/Sodium Chloride 500 ml @ 250 mls/hr Q12H 10/28/18 04:00 10/28/18 13:07 DC 10/28/18 03:59 250 MLS/HR Lab Laboratory Tests Test 10/30/18 04:15 Sodium Level 130 mmol/L (136-145) Potassium Level 3.1 mmol/L (3.5-5.1) Chloride Level 95 mmol/L (98-107) Carbon Dioxide Level 22 mmol/L (21-32) Anion Gap 13 (6-14) Blood Urea Nitrogen 8 mg/dL (8-26) Creatinine 0.8 mg/dL (0.7-1.3) Estimated GFR (Cockcroft-Gault) 100.4 BUN/Creatinine Ratio 10 (6-20) Glucose Level 105 mg/dL (70-99) Calcium Level 8.7 mg/dL (8.5-10.1) Phosphorus Level 2.3 mg/dL (2.6-4.7) Magnesium Level 1.6 mg/dL (1.8-2.4) Total Bilirubin 1.0 mg/dL (0.2-1.0) Aspartate Amino Transf (AST/SGOT) 115 U/L (15-37) Alanine Aminotransferase (ALT/SGPT) 80 U/L (16-63) Alkaline Phosphatase 78 U/L (46-116) Total Protein 6.9 g/dL (6.4-8.2) Albumin 2.9 g/dL (3.4-5.0) Albumin/Globulin Ratio 0.7 (1.0-1.7) Results All relevant outside records, renal labs, imaging studies, telemetry/EKG's were reviewed. IDANIA DENNIS MD Oct 30, 2018 12:13
--- NOTE | 2018-10-30 21:41 | NUR ---
This pt. went for a walk this evening with this nurse. Pt. started to feel tired so a wheelchair was used to take pt. back to their room. Spoke to pt. about using call light to call for help before getting up. Pt. is unsteady when walking even with walker. [employer] was notified about this change. Will continue to monitor.
--- NOTE | 2018-10-31 02:30 | NUR ---
bp 170/90 received prn clonidine at 0250. lcrn
[2018-10-31 02:34] VITALS: BP 170/90
[2018-10-31] MEDS: cloNIDine HCL 0.1 MG TABLET PO PRN (02:49)
[2018-10-31 05:50] LABS: ALBUMIN 2.9 g/dL (3.4-5.0); CREATININE 0.9 mg/dL (0.7-1.3); GFR 87.6; PHOSPHORUS 3.4 mg/dL (2.6-4.7)
[2018-10-31] MEDS: HEPARIN for SUB-Q USE 5,000 UNIT/ML VIAL. SQ SCH ×3 (06:25→22:09)
[2018-10-31] MEDS: IPRATRPIUM/ALBUTEROL 0.5/2.5MG 3 ML NEBU. NEB SCH ×4 (06:56→19:52)
[2018-10-31] MEDS: BUDESONIDE 0.5 MG/2 ML NEBU. NEB SCH ×2 (06:57→19:52)
[2018-10-31 07:22] VITALS: BP 157/84
[2018-10-31] MEDS: DOXYCYCLINE HYCLATE 100 MG TABLET PO SCH ×2 (08:45→22:00)
[2018-10-31] MEDS: LOSARTAN POTASSIUM 50 MG TABLET. PO SCH (08:45)
[2018-10-31] MEDS: CARVEDILOL 12.5 MG TABLET. PO SCH ×2 (08:45→17:51)
[2018-10-31] MEDS: FUROSEMIDE 40 MG/4 ML VIAL. IVP SCH ×2 (08:46→14:33)
[2018-10-31] MEDS: LACTOBACILLUS RHAMNOSUS GG 1 CAPSULE. PO SCH ×2 (08:46→21:59)
[2018-10-31] MEDS: GABAPENTIN 300 MG CAPSULE. PO SCH ×3 (08:46→21:59)
--- NOTE | 2018-10-31 10:25 | PDOC ---
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 uncontrolled and untreated BP checked TTE checked abdominal US check a1c check TSH repeat LFTS dvt ppx: heparin full code History of Present Illness History of Present Illness 53 year old male with history of hypertension not currently taking meds who presents with SOB on exertion and at rest with associated cough and congestion. patient does not have a PCP. does not take BP meds anymore, last took over a year ago. reports decreased PO intake. no nausea vomiting diarrhea. denies hx of COPD or CHF. scheduled for Left Hip sx 11/[address] chest concerning for PNA. also found to have elevated BNP 440 Sodium stable today, K lower at 3.1, feeling less short of breath. Transaminitis noted. He denies any CP. Feeling weak and still coughing Vitals Vitals Vital Signs Date Time Temp Pulse Resp B/P (MAP) Pulse Ox O2 Delivery O2 Flow Rate FiO2 10/31/18 08:45 86 157/84 10/31/18 08:00 Room Air 10/31/18 07:22 98.0 17 94 98.0 Physical Exam General: Alert, Oriented X3, Cooperative Heart: Regular rate, Normal S1, Normal S2 Lungs: Wheezing, Crackles Abdomen: Normal bowel sounds, Soft Extremities: No clubbing, No cyanosis Skin: No rashes, No breakdown Labs LABS Laboratory Tests Test 10/31/18 04:30 Sodium Level 126 mmol/L (136-145) Potassium Level 3.0 mmol/L (3.5-5.1) Chloride Level 90 mmol/L (98-107) Carbon Dioxide Level 23 mmol/L (21-32) Anion Gap 13 (6-14) Blood Urea Nitrogen 14 mg/dL (8-26) Creatinine 0.9 mg/dL (0.7-1.3) Estimated GFR (Cockcroft-Gault) 87.6 Glucose Level 99 mg/dL (70-99) Calcium Level 9.0 mg/dL (8.5-10.1) Phosphorus Level 3.4 mg/dL (2.6-4.7) Albumin 2.9 g/dL (3.4-5.0) Assessment and Plan Assessmemt and Plan Problems Medical Problems: (1) Hypertension Status: Acute (2) Hyponatremia Status: Acute (3) Right lower lobe pneumonia Status: Acute (4) Shortness of breath Status: Acute (5) Tachycardia Status: Acute Comment Review of Relevant I have reviewed the following items jason (where applicable) has been applied. Labs Laboratory Tests Test 10/30/18 04:15 10/31/18 04:30 Sodium Level 130 mmol/L (136-145) 126 mmol/L (136-145) Potassium Level 3.1 mmol/L (3.5-5.1) 3.0 mmol/L (3.5-5.1) Chloride Level 95 mmol/L (98-107) 90 mmol/L (98-107) Carbon Dioxide Level 22 mmol/L (21-32) 23 mmol/L (21-32) Anion Gap 13 (6-14) 13 (6-14) Blood Urea Nitrogen 8 mg/dL (8-26) 14 mg/dL (8-26) Creatinine 0.8 mg/dL (0.7-1.3) 0.9 mg/dL (0.7-1.3) Estimated GFR (Cockcroft-Gault) 100.4 87.6 BUN/Creatinine Ratio 10 (6-20) Glucose Level 105 mg/dL (70-99) 99 mg/dL (70-99) Calcium Level 8.7 mg/dL (8.5-10.1) 9.0 mg/dL (8.5-10.1) Phosphorus Level 2.3 mg/dL (2.6-4.7) 3.4 mg/dL (2.6-4.7) Magnesium Level 1.6 mg/dL (1.8-2.4) Iron Level 30 ug/dL (65-175) Total Iron Binding Capacity 356 ug/dL (250-450) Iron Saturation 8 % (15-34) Total Bilirubin 1.0 mg/dL (0.2-1.0) Aspartate Amino Transf (AST/SGOT) 115 U/L (15-37) Alanine Aminotransferase (ALT/SGPT) 80 U/L (16-63) Alkaline Phosphatase 78 U/L (46-116) Total Protein 6.9 g/dL (6.4-8.2) Albumin 2.9 g/dL (3.4-5.0) 2.9 g/dL (3.4-5.0) Albumin/Globulin Ratio 0.7 (1.0-1.7) Laboratory Tests Test 10/31/18 04:30 Sodium Level 126 mmol/L (136-145) Potassium Level 3.0 mmol/L (3.5-5.1) Chloride Level 90 mmol/L (98-107) Carbon Dioxide Level 23 mmol/L (21-32) Anion Gap 13 (6-14) Blood Urea Nitrogen 14 mg/dL (8-26) Creatinine 0.9 mg/dL (0.7-1.3) Estimated GFR (Cockcroft-Gault) 87.6 Glucose Level 99 mg/dL (70-99) Calcium Level 9.0 mg/dL (8.5-10.1) Phosphorus Level 3.4 mg/dL (2.6-4.7) Albumin 2.9 g/dL (3.4-5.0) Microbiology 10/27/18 Blood Culture - Preliminary, Resulted NO GROWTH AFTER 3 DAYS Medications Current Medications Albuterol/ Ipratropium (Duoneb) 3 ml 1X ONCE NEB Last administered on at 14:03; Start 10/27/18 at 14:00; Stop 10/27/18 at 14:01; Status DC Methylprednisolone Sodium Succinate (SOLU-Medrol 125MG VIAL) 125 mg 1X ONCE IV Last administered on 10/27/18at 14:10; Start 10/27/18 at 14:00; Stop 10/27/18 at 14:01; Status DC Labetalol HCl (Normodyne Iv Push) 10 mg 1X ONCE IVP Last administered on at 14:34; Start 10/27/18 at 14:15; Stop 10/27/18 at 14:16; Status DC Sodium Chloride 1,000 ml @ 1,000 mls/hr 1X ONCE IV Last administered on at 15:20; Start 10/27/18 at 15:00; Stop 10/27/18 at 15:59; Status DC Sodium Chloride 1,000 ml @ 1,000 mls/hr 1X ONCE IV Last administered on at 16:01; Start 10/27/18 at 15:45; Stop 10/27/18 at 16:44; Status DC Vancomycin HCl (Vanco Per Pharmacy) 1 each PRN DAILY PRN MC SEE COMMENTS Last administered on 10/27/18at 18:37; Start 10/27/18 at 16:00; Stop 10/28/18 at 13:07 ; Status DC Ceftriaxone Sodium (Rocephin) 1 gm 1X ONCE IVP Last administered on 10/27/18at 16:03; Start 10/27/18 at 16:00; Stop 10/27/18 at 16:01; Status DC Vancomycin HCl 2 gm/Sodium Chloride 500 ml @ 250 mls/hr 1X ONCE IV Last administered on 10/27/18at 16:02; Start 10/27/18 at 16:30; Stop 10/28/18 at 13:07 ; Status DC Doxycycline Hyclate (Vibra-Tab) 100 mg BID PO Last administered on 10/31/18at 08 :45; Start 10/27/18 at 21:00 Iohexol (Omnipaque 350 Mg/ml) 100 ml 1X ONCE IV Last administered on at 16:54; Start 10/27/18 at 16:45; Stop 10/27/18 at 16:46; Status DC Info (CONTRAST GIVEN -- Rx MONITORING) 1 each PRN DAILY PRN MC SEE COMMENTS; Start 10/27/18 at 16:45; Stop 10/29/18 at 16:44; Status DC Ondansetron HCl (Zofran) 4 mg PRN Q8HRS PRN IV NAUSEA/VOMITING; Start 10/27/18 at 17:00; Stop 10/28/18 at 16:59; Status DC Morphine Sulfate (Morphine Sulfate) 2 mg PRN Q2HR PRN IV PAIN; Start 10/27/18 at 17:00; Stop 10/28/18 at 16:59; Status DC Sodium Chloride 1,000 ml @ 125 mls/hr 1X ONCE IV ; Start 10/27/18 at 17:00; Stop 10/28/18 at 00:59; Status DC Labetalol HCl (Normodyne Iv Push) 10 mg 1X ONCE IVP Last administered on 18:15; Start 10/27/18 at 18:15; Stop 10/27/18 at 18:16; Status DC Clonidine HCl (Catapres) 0.1 mg 1X ONCE PO Last administered on 10/27/18at 18: 15; Start 10/27/18 at 18:15; Stop 10/27/18 at 18:16; Status DC Clonidine HCl (Catapres) 0.1 mg PRN Q8HRS PRN PO HYPERTENSION, SEE COMMENTS Last administered on 10/31/18at 02:49; Start 10/27/18 at 18:15 Clonidine HCl (Catapres) 0.1 mg STK-MED ONCE .ROUTE ; Start 10/27/18 at 18:12; Stop 10/27/18 at 18:13; Status DC Vancomycin HCl 2 gm/Sodium Chloride 500 ml @ 250 mls/hr Q12H IV Last administered on 10/28/18at 03:59; Start 10/28/18 at 04:00; Stop 10/28/18 at 13:07 ; Status DC Vancomycin HCl (Vancomycin Trough Level) 1 each 1X ONCE MC ; Start 10/29/18 at 03:30; Stop 10/29/18 at 03:30; Status DC Sodium Chloride 1,000 ml @ 100 mls/hr Q10H IV Last administered on 10/29/18at 03:23; Start 10/27/18 at 19:00; Stop 10/29/18 at 15:20; Status DC Heparin Sodium (Porcine) (Heparin Sodium) 5,000 unit Q8HRS SQ Last administered on 10/31/18at 06:25; Start 10/27/18 at 22:00 Gabapentin (Neurontin) 300 mg TID PO Last administered on 10/31/18at 08:46; Start 10/27/18 at 21:00 Carvedilol (Coreg) 12.5 mg BIDWMEALS PO Last administered on 10/30/18at 08:52; Start 10/28/18 at 08:00; Stop 10/30/18 at 09:03; Status DC Ceftriaxone Sodium (Rocephin) 1 gm Q24H IVP ; Start 10/28/18 at 16:00; Stop at 16:00; Status DC Doxycycline Hyclate (Vibra-Tab) 100 mg BID PO ; Start 10/27/18 at 21:00; Status UNV Lisinopril (Prinivil) 20 mg DAILY PO Last administered on 10/28/18at 09:08; Start 10/28/18 at 09:00; Stop 10/28/18 at 12:05; Status DC Hydralazine HCl (Apresoline Inj) 10 mg PRN Q4HRS PRN IVP ELEVATED BP, SEE COMMENTS Last administered on 10/30/18at 02:38; Start 10/27/18 at 21:15 Albuterol Sulfate (Ventolin Neb Soln) 2.5 mg STK-MED ONCE .ROUTE ; Start at 23:48; Stop 10/28/18 at 00:52; Status DC Albuterol Sulfate (Ventolin Neb Soln) 2.5 mg PRN Q4HRS PRN NEB SHORTNESS OF BREATH Last administered on 10/28/18at 12:07; Start 10/27/18 at 23:00 Throat Lozenges (Cepacol Sore Throat Lozenge) 1 kaiser PRN Q2HRS PRN PO SORE THROAT Last administered on 10/29/18at 22:22; Start 10/28/18 at 05:00 Lactobacillus Rhamnosus (Culturelle) 1 cap BID PO Last administered on at 08:46; Start 10/28/18 at 09:00 Albuterol/ Ipratropium (Duoneb) 3 ml RTQID NEB Last administered on 10/31/18at 06:56; Start 10/28/18 at 12:30 Budesonide (Pulmicort) 0.5 mg RTBID NEB Last administered on 10/31/18at 06:57; Start 10/28/18 at 12:30 Losartan Potassium (Cozaar) 100 mg DAILY PO ; Start 10/28/18 at 12:30; Stop at 15:03; Status DC Losartan Potassium (Cozaar) 25 mg DAILY PO Last administered on 10/30/18at 08:53 ; Start 10/29/18 at 09:00; Stop 10/30/18 at 09:03; Status DC Levofloxacin/ Dextrose 150 ml @ 100 mls/hr Q24H IV Last administered on 16:48; Start 10/28/18 at 16:00; Stop 10/30/18 at 14:00; Status DC Carvedilol (Coreg) 25 mg BIDWMEALS PO Last administered on 10/31/18 08:45; Start 10/30/18 at 17:00 Furosemide (Lasix) 40 mg BID92 IVP Last administered on 10/31/18 08:46; Start 10/30/18 at 09:15 Potassium Chloride (Klor-Con) 40 meq 1X ONCE PO Last administered on 09:33; Start 10/30/18 at 09:15; Stop 10/30/18 at 09:16; Status DC Losartan Potassium (Cozaar) 50 mg DAILY PO Last administered on 10/31/18 08:45 ; Start 10/31/18 at 09:00 Magnesium Sulfate/ Dextrose 100 ml @ 25 mls/hr 1X ONCE IV Last administered on 10/30/18at 10:45; Start 10/30/18 at 10:00; Stop 10/30/18 at 13:59; Status DC Levofloxacin (Levaquin) 750 mg Q24H PO Last administered on 10/30/18 15:13; Start 10/30/18 at 16:00 Active Scripts Active Symbicort 80-4.5 Mcg Inhaler (Budesonide/Formoterol Fumarate) 10.2 Gm Hfa.aer.ad 1 Puff IH BID 30 Days Levaquin (Levofloxacin) 750 Mg Tablet 1 Tab PO DAILY 7 Days Culturelle (Lactobacillus Rhamnosus Gg) 1 Each Cap.sprink 1 Cap PO BID 7 Days Coreg (Carvedilol) 25 Mg Tablet 25 Mg PO BIDWMEALS 30 Days Losartan Potassium 100 Mg Tablet 100 Mg PO DAILY 30 Days Reported Gabapentin 300 Mg Capsule 300 Mg PO TID Vitals/I & O Vital Sign - Last 24 Hours 10/30/18 10/30/18 10/30/18 10/30/18 11:25 11:30 15:00 15:32 Temp 97.4 98.4 97.4 98.4 Pulse 80 77 Resp 18 16 B/P (MAP) 139/86 (103) 166/102 (123) Pulse Ox 93 94 94 94 O2 Delivery Room Air Room Air Room Air Room Air 10/30/18 10/30/18 10/30/18 10/30/18 17:47 19:00 19:27 20:00 Temp 98.1 98.1 Pulse 81 77 Resp 18 B/P (MAP) 155/98 129/80 (96) Pulse Ox 96 94 O2 Delivery Room Air Room Air 10/30/18 10/30/18 10/30/18 10/31/18 20:00 20:02 23:00 02:34 Temp 97.9 97.9 97.9 97.9 Pulse 68 75 Resp 18 17 B/P (MAP) 145/83 (103) 170/90 (116) Pulse Ox 94 95 95 O2 Delivery Room Air Room Air Room Air Room Air 10/31/18 10/31/18 10/31/18 10/31/18 02:49 06:57 07:22 08:00 Temp 98.0 98.0 Pulse 75 86 Resp 17 B/P (MAP) 170/90 157/84 (108) Pulse Ox 94 94 O2 Delivery Room Air Room Air Room Air 10/31/18 10/31/18 08:45 08:45 Pulse 86 86 B/P (MAP) 157/84 157/84 Intake and Output 10/30/18 10/30/18 10/31/18 15:00 23:00 07:00 Intake Total 0 ml 930 ml 300 ml Output Total 650 ml 175 ml Balance -650 ml 930 ml 125 ml JESSICA LYNN MD Oct 31, 2018 10:25
[2018-10-31] MEDS ORDERED: FERROUS SULFATE 325 MG TABLET. PO SCH (10:30)
[2018-10-31] MEDS ORDERED: POTASSIUM CHLORIDE 20 MEQ TABLET.ER. PO ONE (10:30)
[2018-10-31 10:54] VITALS: BP 147/80
[2018-10-31] MEDS: POTASSIUM CHLORIDE 10MEQ 100 ML IV SCH ×2 (11:02→14:36)
--- NOTE | 2018-10-31 11:33 | PDOC ---
SUBJECTIVE ROS Stable OBJECTIVE Vital Signs Vital Signs Date Time Temp Pulse Resp B/P (MAP) Pulse Ox O2 Delivery O2 Flow Rate FiO2 10/31/18 11:00 Room Air 10/31/18 10:54 98.6 76 17 147/80 (102) 93 98.6 I & 0 Intake and Output 10/31/18 06:59 Intake Total 1230 ml Output Total 825 ml Balance 405 ml Intake Oral 1230 ml Output Urine Total 825 ml # Bowel Movements 1 PHYSICAL EXAM Physical Exam Physical Exam GENERAL: No apparent distress. HEENT: OM moist NECK: Supple LUNGS: course bilaterally HEART: RRR, S1, S2 present, pulses intact ABDOMEN: Soft, Obese EXTREMITIES: No edema. NEUROLOGIC: Grossly normal SKIN: No Rash No Haider, No SP or CVA tenderness DIAGNOSIS/ASSESSMENT Assessment & Plan Hyponatremia- SIADH ?Pneumonia, ? Cirrhosis restrict fluid intake to 1500 ml/24 hrs , off ivf No Improvement in Na , recommend further w/u for Cirrhosis May consider starting Demeclocycline if no improvement in Na Currently Pt asymptomatic Hypokalemia- replace On IV Lasix Hypmag- Mild Replaced HTN- on antihypertensives Pneumonia -On Abx Legionella Anemia- ALANIZ as per primary ? Diastolic Dysfunction - On Lasix as per Primary Clinically appears stable Discussed with RN and Dr. Flores COMMENT/RELEVANT DATA Meds Current Medications Medications (Trade) Dose Ordered Sig/Jennifer Start Time Stop Time Status Last Admin Dose Admin Albuterol Sulfate (Ventolin Neb Soln) 2.5 mg PRN Q4HRS PRN 10/27/18 23:00 10/28/18 12:07 2.5 MG Albuterol/ Ipratropium (Duoneb) 3 ml RTQID 10/28/18 12:30 10/31/18 11:00 3 ML Budesonide (Pulmicort) 0.5 mg RTBID 10/28/18 12:30 10/31/18 06:57 0.5 MG Carvedilol (Coreg) 25 mg BIDWMEALS 10/30/18 17:00 10/31/18 08:45 25 MG Ceftriaxone Sodium (Rocephin) 1 gm Q24H 10/28/18 16:00 10/28/18 16:00 DC Clonidine HCl (Catapres) 0.1 mg STK-MED ONCE 10/27/18 18:12 10/27/18 18:13 DC Doxycycline Hyclate (Vibra-Tab) 100 mg BID 10/27/18 21:00 UNV Ferrous Sulfate (Feosol) 325 mg DAILYWBKFT 10/31/18 10:30 10/31/18 11:01 325 MG Furosemide (Lasix) 40 mg BID92 10/30/18 09:15 10/31/18 08:46 40 MG Gabapentin (Neurontin) 300 mg TID 10/27/18 21:00 10/31/18 08:46 300 MG Heparin Sodium (Porcine) (Heparin Sodium) 5,000 unit Q8HRS 10/27/18 22:00 10/31/18 06:25 5,000 UNIT Hydralazine HCl (Apresoline Inj) 10 mg PRN Q4HRS PRN 10/27/18 21:15 10/30/18 02:38 10 MG Info (CONTRAST GIVEN -- Rx MONITORING) 1 each PRN DAILY PRN 10/27/18 16:45 10/29/18 16:44 DC Iohexol (Omnipaque 350 Mg/ml) 100 ml 1X ONCE 10/27/18 16:45 10/27/18 16:46 DC 10/27/18 16:54 100 ML Labetalol HCl (Normodyne Iv Push) 10 mg 1X ONCE 10/27/18 18:15 10/27/18 18:16 DC 10/27/18 18:15 10 MG Lactobacillus Rhamnosus (Culturelle) 1 cap BID 10/28/18 09:00 10/31/18 08:46 1 CAP Levofloxacin (Levaquin) 750 mg Q24H 10/30/18 16:00 10/30/18 15:13 750 MG Levofloxacin/ Dextrose 150 ml @ 100 mls/hr Q24H 10/28/18 16:00 10/30/18 14:00 DC 10/29/18 16:48 100 MLS/HR Lisinopril (Prinivil) 20 mg DAILY 10/28/18 09:00 10/28/18 12:05 DC 10/28/18 09:08 20 MG Losartan Potassium (Cozaar) 50 mg DAILY 10/31/18 09:00 10/31/18 08:45 50 MG Magnesium Sulfate/ Dextrose 100 ml @ 25 mls/hr 1X ONCE 10/30/18 10:00 10/30/18 13:59 DC 10/30/18 10:45 25 MLS/HR Methylprednisolone Sodium Succinate (SOLU-Medrol 125MG VIAL) 125 mg 1X ONCE 10/27/18 14:00 10/27/18 14:01 DC 10/27/18 14:10 125 MG Morphine Sulfate (Morphine Sulfate) 2 mg PRN Q2HR PRN 10/27/18 17:00 10/28/18 16:59 DC Ondansetron HCl (Zofran) 4 mg PRN Q8HRS PRN 10/27/18 17:00 10/28/18 16:59 DC Potassium Chloride/Water 100 ml @ 100 mls/hr Q1H 10/31/18 11:00 10/31/18 12:59 10/31/18 11:02 100 MLS/HR Potassium Chloride (Klor-Con) 40 meq 1X ONCE 10/31/18 10:30 10/31/18 10:31 DC 10/31/18 11:01 40 MEQ Sodium Chloride 1,000 ml @ 100 mls/hr Q10H 10/27/18 19:00 10/29/18 15:20 DC 10/29/18 03:23 100 MLS/HR Throat Lozenges (Cepacol Sore Throat Lozenge) 1 nicola PRN Q2HRS PRN 10/28/18 05:00 10/29/18 22:22 1 NICOLA Vancomycin HCl (Vanco Per Pharmacy) 1 each PRN DAILY PRN 10/27/18 16:00 10/28/18 13:07 DC 10/27/18 18:37 1 EACH Vancomycin HCl (Vancomycin Trough Level) 1 each 1X ONCE 10/29/18 03:30 10/29/18 03:30 DC Vancomycin HCl 2 gm/Sodium Chloride 500 ml @ 250 mls/hr Q12H 10/28/18 04:00 10/28/18 13:07 DC 10/28/18 03:59 250 MLS/HR Lab Laboratory Tests Test 10/31/18 04:30 Sodium Level 126 mmol/L (136-145) Potassium Level 3.0 mmol/L (3.5-5.1) Chloride Level 90 mmol/L (98-107) Carbon Dioxide Level 23 mmol/L (21-32) Anion Gap 13 (6-14) Blood Urea Nitrogen 14 mg/dL (8-26) Creatinine 0.9 mg/dL (0.7-1.3) Estimated GFR (Cockcroft-Gault) 87.6 Glucose Level 99 mg/dL (70-99) Calcium Level 9.0 mg/dL (8.5-10.1) Phosphorus Level 3.4 mg/dL (2.6-4.7) Albumin 2.9 g/dL (3.4-5.0) Results All relevant outside records, renal labs, imaging studies, telemetry/EKG's were reviewed. IDANIA DENNIS MD Oct 31, 2018 11:33
--- NOTE | 2018-10-31 13:20 | PDOC2 ---
GI CONSULT Reason For Consult: consider cirrhosis HPI: HPI: 53 y/o male evaluated in ER on 10/27 for SOA and "lung pain," admitted w/ pneumonia. Also found w/ SHAKIR, hyponatremia, and abnormal liver enzymes. Followed by nephrology, suspected SIADH w/ consideration for demeclocycline. Admitting Hgb was 11.8, now 9.1. RDW 17.4, iron sat 8. Normal plt and INR. bili 1, AST 115 (from 122), ALT 81 (from 87), Alk Phos 78, albumin 2.9. Hepatitis panel was negative. Imaging showed hepatic steatosis and hepatosplenomegaly. GI asked to see re: possible cirrhosis. He denies reflux/heartburn, dysphagia, n/v, abd pain, constipation, hematemesis , hematochezia, melena, change in appetite, weight loss, bloating, early satiety , and swelling. Has always had occasional diarrhea. No previous EGD or colonoscopy. Denies GB, liver, pancreas, anemia, or PUD history. Does not see a doctor regularly. Takes ibuprofen 200mg QD-BID for ankle pain. Drinks "2 or 3 or 4" beers ([employer]) every day. 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 PMH: PMH: HTN ("sometimes"), allergic rhinitis, neuropathy right rotator cuff repair x 2, left clavicle surgery, right ankle surgery, left inguinal hernia repair FH: Family History: Other (sister last year "from drinking too much") Social History: Smoke: No ALCOHOL: none Drugs: None ROS: GEN: Denies fevers, chills, sweats HEENT: Denies blurred vision, sore throat CV: Denies chest pain RESP: +cough GI: Per HPI : Denies hematuria, dysuria ENDO: Denies weight changes NEURO: Denies confusion, dizziness MSK: +ankle pain (chronic) SKIN: Denies jaundice, pruritus Vitals: Vitals: Vital Signs Date Time Temp Pulse Resp B/P (MAP) Pulse Ox O2 Delivery O2 Flow Rate FiO2 10/31/18 11:00 Room Air 10/31/18 10:54 98.6 76 17 147/80 (102) 93 98.6 Labs: Labs: Laboratory Tests Test 10/31/18 04:30 Sodium Level 126 mmol/L (136-145) Potassium Level 3.0 mmol/L (3.5-5.1) Chloride Level 90 mmol/L (98-107) Carbon Dioxide Level 23 mmol/L (21-32) Anion Gap 13 (6-14) Blood Urea Nitrogen 14 mg/dL (8-26) Creatinine 0.9 mg/dL (0.7-1.3) Estimated GFR (Cockcroft-Gault) 87.6 Glucose Level 99 mg/dL (70-99) Calcium Level 9.0 mg/dL (8.5-10.1) Phosphorus Level 3.4 mg/dL (2.6-4.7) Albumin 2.9 g/dL (3.4-5.0) BLOOD CULTURE Preliminary NO GROWTH AFTER 3 DAYS Allergies: Coded Allergies: clarithromycin (Verified Allergy, Intermediate, 10/27/18) Medications: Current Medications Medications (Trade) Dose Ordered Sig/Jennifer Route PRN Reason Start Time Stop Time Status Last Admin Dose Admin Carvedilol (Coreg) 25 mg BIDWMEALS PO 10/30/18 17:00 10/31/18 08:45 Losartan Potassium (Cozaar) 50 mg DAILY PO 10/31/18 09:00 10/31/18 08:45 Levofloxacin (Levaquin) 750 mg Q24H PO 10/30/18 16:00 10/30/18 15:13 Potassium Chloride (Klor-Con) 40 meq 1X ONCE PO 10/31/18 10:30 10/31/18 10:31 DC 10/31/18 11:01 Potassium Chloride/Water 100 ml @ 100 mls/hr Q1H IV 10/31/18 11:00 10/31/18 12:59 10/31/18 11:02 Ferrous Sulfate (Feosol) 325 mg DAILYWBKFT PO 10/31/18 10:30 10/31/18 11:01 Imaging: Imaging: CXR 10/27/18 IMPRESSION: 1. Elevation of the right hemidiaphragm with suspected right basilar compressive atelectasis. 2. No acute pulmonary finding. Chest CTA Impression: 1. No central pulmonary embolism is identified, somewhat limited evaluation for smaller and more peripheral emboli on this exam. 2. There is mild right lower lobe infiltrate. There is mild perihilar bronchial wall thickening, can be seen with bronchitis. 3. There is some coronary calcification. 4. There is slightly ectatic ascending thoracic aorta about 3.7 cm. 5. There is diffuse hepatic steatosis. 6. There may be right renal calculi. Abd US Examination is compromised by the patient's large body habitus and inability to hold breath due to shortness of breath. The pancreas is not well visualized due to body habitus and bowel gas. The visualized portion of the proximal aorta measuring 1.8 cm in greatest dimension but the distal aorta is not visualized. The IVC is not well visualized. The liver shows diffuse fatty infiltration and appears to be enlarged measuring 18.3 cm in greatest dimension but no focal lesions are seen. Gallbladder shows no cholelithiasis, sludge or wall thickening. Common bile duct is normal in caliber 4.3 mm. The right kidney measures 11.9 x 5.4 x 4.7 cm in greatest dimension and shows some increased echogenicity with no mass or hydronephrosis evident. The left kidney measures 12.3 x 5.9 x 4.1 cm in greatest dimension and shows increased echogenicity with a tiny cysts seen but no hydronephrosis evident. The spleen is enlarged at 13.4 cm without a focal lesion. There is no free fluid present. IMPRESSION: Mild hepatosplenomegaly with fatty infiltration in the liver. No focal lesions in the liver or spleen. Echogenic kidneys with a small left renal cyst. Echocardiogram <Conclusion> The left ventricle is normal size. Left ventricle systolic function is low normal. The Ejection Fraction is 50-55%. There is mild concentric left ventricular hypertrophy. There is no significant aortic valvular stenosis. Doppler and Color Flow revealed mild aortic regurgitation. Doppler and Color-flow revealed trace mitral regurgitation. Doppler and Color Flow revealed trace tricuspid regurgitation. The PA pressure was estimated at 21 mmHg. The aortic root is moderately enlarged at 4.5cm. The ascending aorta is normal in size. The Aortic Arch is enlarged. PE: GEN: NAD HEENT: Atraumatic, PERRL LUNGS: clear anteriorly - occasional cough HEART: RRR ABD: NABS, S/ND/NT EXTREMITY: No edema SKIN: No rashes, no jaundice NEURO/PSYCH: A & O 3 A/P: A/P: Pneumonia, hyponatremia, HTN SHAKIR Elevated AST and ALT, hypoalbuminemia, hepatosplenomegaly ---> daily alcohol use , Hepatitis panel negative CRC screen - none NSAID use Hypokalemia - per primary -- Needs eval for SHAKIR - can pursue EGD and colonoscopy as outpt when pneumonia resolved. Can increase iron to BID, start empiric PPI considering NSAID use. Will review any additional workup re: LFTs/hepatosplenomegaly w/ Dr. Singh - probably related to alcohol. GUILLAUME HOPSON Oct 31, 2018 13:20
--- NOTE | 2018-10-31 13:48 | NUR ---
SS following up with discharge planning. Discharge order on the chart from 10/30/2018. Pt will return to home with room air. No discharge needs.
[2018-10-31 14:57] VITALS: BP 151/88
[2018-10-31 16:44] LABS: BASO % 1 % (0-3); EOS % 1 % (0-3); HEMATOCRIT 33.7 % (39.0-53.0); LYMPH # 0.7 x10^3/uL (1.0-4.8); LYMPH % 13 % (24-48); MEAN CORPUSCULAR HEMOGLOBIN 26 pg (25-35); MEAN CORPUSCULAR HGB CONC 33 g/dL (31-37); MEAN CORPUSCULAR VOLUME 81 fL (79-100); MONO # 0.8 x10^3/uL (0.0-1.1); MONO % 14 % (0-9); NEUT % 72 % (31-73); PLATELET COUNT 277 x10^3/uL (140-400); RED BLOOD COUNT 4.18 x10^6/uL (4.30-5.70); RED CELL DISTRIBUTION WIDTH 17.5 % (11.5-14.5); WHITE BLOOD COUNT 5.6 x10^3/uL (4.0-11.0)
[2018-10-31 16:52] LABS: CALCIUM 9.3 mg/dL (8.5-10.1); CREATININE 1.2 mg/dL (0.7-1.3); GFR 62.9; POTASSIUM 3.4 mmol/L (3.5-5.1)
[2018-10-31 16:58] LABS: ALBUMIN 3.3 g/dL (3.4-5.0); DIRECT BILIRUBIN 0.5 mg/dL (0.0-0.2); TOTAL BILIRUBIN 1.3 mg/dL (0.2-1.0); TOTAL PROTEIN 7.9 g/dL (6.4-8.2)
[2018-10-31] MEDS: PANTOPRAZOLE 40 MG TABLET.DR. PO SCH (17:50)
[2018-10-31] MEDS: FERROUS SULFATE 325 MG TABLET. PO SCH (17:51)
[2018-10-31 19:00] VITALS: BP 134/86
[2018-10-31 23:00] VITALS: BP 148/92
[2018-11-01 02:48] VITALS: BP 151/77
[2018-11-01 05:29] LABS: ALBUMIN 2.9 g/dL (3.4-5.0); ALBUMIN/GLOBULIN RATIO 0.7 (1.0-1.7); GFR 77.6; POTASSIUM 3.1 mmol/L (3.5-5.1); TOTAL PROTEIN 7.2 g/dL (6.4-8.2)
[2018-11-01] MEDS: HEPARIN for SUB-Q USE 5,000 UNIT/ML VIAL. SQ SCH (07:19)
[2018-11-01] MEDS: IPRATRPIUM/ALBUTEROL 0.5/2.5MG 3 ML NEBU. NEB SCH ×2 (07:22→11:17)
[2018-11-01] MEDS: BUDESONIDE 0.5 MG/2 ML NEBU. NEB SCH (07:25)
[2018-11-01 07:43] VITALS: BP 156/95
[2018-11-01] MEDS: PANTOPRAZOLE 40 MG TABLET.DR. PO SCH (08:43)
[2018-11-01] MEDS: LACTOBACILLUS RHAMNOSUS GG 1 CAPSULE. PO SCH (08:43)
[2018-11-01] MEDS: CARVEDILOL 12.5 MG TABLET. PO SCH (08:44)
[2018-11-01] MEDS: LOSARTAN POTASSIUM 50 MG TABLET. PO SCH (08:44)
[2018-11-01] MEDS: FERROUS SULFATE 325 MG TABLET. PO SCH (08:44)
[2018-11-01] MEDS: GABAPENTIN 300 MG CAPSULE. PO SCH ×2 (08:44→13:48)
[2018-11-01] MEDS: FUROSEMIDE 40 MG/4 ML VIAL. IVP SCH (08:44)
[2018-11-01] MEDS: DOXYCYCLINE HYCLATE 100 MG TABLET PO SCH (08:44)
[2018-11-01 11:55] VITALS: BP 137/86
[2018-11-01] MEDS ORDERED: POTA20TA82 PO (12:57)
--- NOTE | 2018-11-01 12:58 | PDOC ---
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 uncontrolled and untreated BP checked TTE checked abdominal US check a1c check TSH repeat LFTS dvt ppx: heparin full code History of Present Illness History of Present Illness 53 year old male with history of hypertension not currently taking meds who presents with SOB on exertion and at rest with associated cough and congestion. patient does not have a PCP. does not take BP meds anymore, last took over a year ago. reports decreased PO intake. no nausea vomiting diarrhea. denies hx of COPD or CHF. scheduled for Left Hip sx 11/[address] chest concerning for PNA. also found to have elevated BNP 440 Sodium stable today, K lower at 3.1, feeling less short of breath. Transaminitis noted. He denies any CP. Feeling weak and still coughing Seen by GI, likely fatty liver 2/2 ETOH use. Started on democlocycline by nephrology Vitals Vitals Vital Signs Date Time Temp Pulse Resp B/P (MAP) Pulse Ox O2 Delivery O2 Flow Rate FiO2 11/01/18 11:55 97.7 77 18 137/86 (103) 95 Room Air 97.7 Physical Exam General: Alert, Oriented X3, Cooperative Heart: Regular rate, Normal S1, Normal S2 Lungs: Wheezing, Crackles Abdomen: Normal bowel sounds, Soft Extremities: No clubbing, No cyanosis Skin: No rashes, No breakdown Labs LABS Laboratory Tests Test 10/31/18 15:25 11/01/18 03:50 White Blood Count 5.6 x10^3/uL (4.0-11.0) Red Blood Count 4.18 x10^6/uL (4.30-5.70) Hemoglobin 11.0 g/dL (13.0-17.5) Hematocrit 33.7 % (39.0-53.0) Mean Corpuscular Volume 81 fL (79-100) Mean Corpuscular Hemoglobin 26 pg (25-35) Mean Corpuscular Hemoglobin Concent 33 g/dL (31-37) Red Cell Distribution Width 17.5 % (11.5-14.5) Platelet Count 277 x10^3/uL (140-400) Neutrophils (%) (Auto) 72 % (31-73) Lymphocytes (%) (Auto) 13 % (24-48) Monocytes (%) (Auto) 14 % (0-9) Eosinophils (%) (Auto) 1 % (0-3) Basophils (%) (Auto) 1 % (0-3) Neutrophils # (Auto) 4.0 x10^3uL (1.8-7.7) Lymphocytes # (Auto) 0.7 x10^3/uL (1.0-4.8) Monocytes # (Auto) 0.8 x10^3/uL (0.0-1.1) Eosinophils # (Auto) 0.0 x10^3/uL (0.0-0.7) Basophils # (Auto) 0.0 x10^3/uL (0.0-0.2) Sodium Level 125 mmol/L (136-145) 123 mmol/L (136-145) Potassium Level 3.4 mmol/L (3.5-5.1) 3.1 mmol/L (3.5-5.1) Chloride Level 88 mmol/L (98-107) 89 mmol/L (98-107) Carbon Dioxide Level 23 mmol/L (21-32) 22 mmol/L (21-32) Anion Gap 14 (6-14) 12 (6-14) Blood Urea Nitrogen 18 mg/dL (8-26) 17 mg/dL (8-26) Creatinine 1.2 mg/dL (0.7-1.3) 1.0 mg/dL (0.7-1.3) Estimated GFR (Cockcroft-Gault) 62.9 77.6 Glucose Level 105 mg/dL (70-99) 100 mg/dL (70-99) Calcium Level 9.3 mg/dL (8.5-10.1) 9.0 mg/dL (8.5-10.1) Phosphorus Level 3.1 mg/dL (2.6-4.7) Magnesium Level 2.2 mg/dL (1.8-2.4) Total Bilirubin 1.3 mg/dL (0.2-1.0) 1.0 mg/dL (0.2-1.0) Direct Bilirubin 0.5 mg/dL (0.0-0.2) Aspartate Amino Transf (AST/SGOT) 125 U/L (15-37) 87 U/L (15-37) Alanine Aminotransferase (ALT/SGPT) 99 U/L (16-63) 76 U/L (16-63) Alkaline Phosphatase 93 U/L (46-116) 76 U/L (46-116) Total Protein 7.9 g/dL (6.4-8.2) 7.2 g/dL (6.4-8.2) Albumin 3.3 g/dL (3.4-5.0) 2.9 g/dL (3.4-5.0) HIV (1&2) Antibody Screen Nonreactive (Nonreactive) BUN/Creatinine Ratio 17 (6-20) Albumin/Globulin Ratio 0.7 (1.0-1.7) Assessment and Plan Assessmemt and Plan Problems Medical Problems: (1) Hypertension Status: Acute (2) Hyponatremia Status: Acute (3) Right lower lobe pneumonia Status: Acute (4) Shortness of breath Status: Acute (5) Tachycardia Status: Acute Comment Review of Relevant I have reviewed the following items jason (where applicable) has been applied. Labs Laboratory Tests Test 10/31/18 04:30 10/31/18 15:25 11/01/18 03:50 Sodium Level 126 mmol/L (136-145) 125 mmol/L (136-145) 123 mmol/L (136-145) Potassium Level 3.0 mmol/L (3.5-5.1) 3.4 mmol/L (3.5-5.1) 3.1 mmol/L (3.5-5.1) Chloride Level 90 mmol/L (98-107) 88 mmol/L (98-107) 89 mmol/L (98-107) Carbon Dioxide Level 23 mmol/L (21-32) 23 mmol/L (21-32) 22 mmol/L (21-32) Anion Gap 13 (6-14) 14 (6-14) 12 (6-14) Blood Urea Nitrogen 14 mg/dL (8-26) 18 mg/dL (8-26) 17 mg/dL (8-26) Creatinine 0.9 mg/dL (0.7-1.3) 1.2 mg/dL (0.7-1.3) 1.0 mg/dL (0.7-1.3) Estimated GFR (Cockcroft-Gault) 87.6 62.9 77.6 Glucose Level 99 mg/dL (70-99) 105 mg/dL (70-99) 100 mg/dL (70-99) Calcium Level 9.0 mg/dL (8.5-10.1) 9.3 mg/dL (8.5-10.1) 9.0 mg/dL (8.5-10.1) Phosphorus Level 3.4 mg/dL (2.6-4.7) 3.1 mg/dL (2.6-4.7) Albumin 2.9 g/dL (3.4-5.0) 3.3 g/dL (3.4-5.0) 2.9 g/dL (3.4-5.0) White Blood Count 5.6 x10^3/uL (4.0-11.0) Red Blood Count 4.18 x10^6/uL (4.30-5.70) Hemoglobin 11.0 g/dL (13.0-17.5) Hematocrit 33.7 % (39.0-53.0) Mean Corpuscular Volume 81 fL (79-100) Mean Corpuscular Hemoglobin 26 pg (25-35) Mean Corpuscular Hemoglobin Concent 33 g/dL (31-37) Red Cell Distribution Width 17.5 % (11.5-14.5) Platelet Count 277 x10^3/uL (140-400) Neutrophils (%) (Auto) 72 % (31-73) Lymphocytes (%) (Auto) 13 % (24-48) Monocytes (%) (Auto) 14 % (0-9) Eosinophils (%) (Auto) 1 % (0-3) Basophils (%) (Auto) 1 % (0-3) Neutrophils # (Auto) 4.0 x10^3uL (1.8-7.7) Lymphocytes # (Auto) 0.7 x10^3/uL (1.0-4.8) Monocytes # (Auto) 0.8 x10^3/uL (0.0-1.1) Eosinophils # (Auto) 0.0 x10^3/uL (0.0-0.7) Basophils # (Auto) 0.0 x10^3/uL (0.0-0.2) Magnesium Level 2.2 mg/dL (1.8-2.4) Total Bilirubin 1.3 mg/dL (0.2-1.0) 1.0 mg/dL (0.2-1.0) Direct Bilirubin 0.5 mg/dL (0.0-0.2) Aspartate Amino Transf (AST/SGOT) 125 U/L (15-37) 87 U/L (15-37) Alanine Aminotransferase (ALT/SGPT) 99 U/L (16-63) 76 U/L (16-63) Alkaline Phosphatase 93 U/L (46-116) 76 U/L (46-116) Total Protein 7.9 g/dL (6.4-8.2) 7.2 g/dL (6.4-8.2) HIV (1&2) Antibody Screen Nonreactive (Nonreactive) BUN/Creatinine Ratio 17 (6-20) Albumin/Globulin Ratio 0.7 (1.0-1.7) Laboratory Tests Test 10/31/18 15:25 11/01/18 03:50 White Blood Count 5.6 x10^3/uL (4.0-11.0) Red Blood Count 4.18 x10^6/uL (4.30-5.70) Hemoglobin 11.0 g/dL (13.0-17.5) Hematocrit 33.7 % (39.0-53.0) Mean Corpuscular Volume 81 fL (79-100) Mean Corpuscular Hemoglobin 26 pg (25-35) Mean Corpuscular Hemoglobin Concent 33 g/dL (31-37) Red Cell Distribution Width 17.5 % (11.5-14.5) Platelet Count 277 x10^3/uL (140-400) Neutrophils (%) (Auto) 72 % (31-73) Lymphocytes (%) (Auto) 13 % (24-48) Monocytes (%) (Auto) 14 % (0-9) Eosinophils (%) (Auto) 1 % (0-3) Basophils (%) (Auto) 1 % (0-3) Neutrophils # (Auto) 4.0 x10^3uL (1.8-7.7) Lymphocytes # (Auto) 0.7 x10^3/uL (1.0-4.8) Monocytes # (Auto) 0.8 x10^3/uL (0.0-1.1) Eosinophils # (Auto) 0.0 x10^3/uL (0.0-0.7) Basophils # (Auto) 0.0 x10^3/uL (0.0-0.2) Sodium Level 125 mmol/L (136-145) 123 mmol/L (136-145) Potassium Level 3.4 mmol/L (3.5-5.1) 3.1 mmol/L (3.5-5.1) Chloride Level 88 mmol/L (98-107) 89 mmol/L (98-107) Carbon Dioxide Level 23 mmol/L (21-32) 22 mmol/L (21-32) Anion Gap 14 (6-14) 12 (6-14) Blood Urea Nitrogen 18 mg/dL (8-26) 17 mg/dL (8-26) Creatinine 1.2 mg/dL (0.7-1.3) 1.0 mg/dL (0.7-1.3) Estimated GFR (Cockcroft-Gault) 62.9 77.6 Glucose Level 105 mg/dL (70-99) 100 mg/dL (70-99) Calcium Level 9.3 mg/dL (8.5-10.1) 9.0 mg/dL (8.5-10.1) Phosphorus Level 3.1 mg/dL (2.6-4.7) Magnesium Level 2.2 mg/dL (1.8-2.4) Total Bilirubin 1.3 mg/dL (0.2-1.0) 1.0 mg/dL (0.2-1.0) Direct Bilirubin 0.5 mg/dL (0.0-0.2) Aspartate Amino Transf (AST/SGOT) 125 U/L (15-37) 87 U/L (15-37) Alanine Aminotransferase (ALT/SGPT) 99 U/L (16-63) 76 U/L (16-63) Alkaline Phosphatase 93 U/L (46-116) 76 U/L (46-116) Total Protein 7.9 g/dL (6.4-8.2) 7.2 g/dL (6.4-8.2) Albumin 3.3 g/dL (3.4-5.0) 2.9 g/dL (3.4-5.0) HIV (1&2) Antibody Screen Nonreactive (Nonreactive) BUN/Creatinine Ratio 17 (6-20) Albumin/Globulin Ratio 0.7 (1.0-1.7) Microbiology 10/27/18 Blood Culture - Preliminary, Resulted NO GROWTH AFTER 4 DAYS Medications Current Medications Albuterol/ Ipratropium (Duoneb) 3 ml 1X ONCE NEB Last administered on at 14:03; Start 10/27/18 at 14:00; Stop 10/27/18 at 14:01; Status DC Methylprednisolone Sodium Succinate (SOLU-Medrol 125MG VIAL) 125 mg 1X ONCE IV Last administered on 10/27/18at 14:10; Start 10/27/18 at 14:00; Stop 10/27/18 at 14:01; Status DC Labetalol HCl (Normodyne Iv Push) 10 mg 1X ONCE IVP Last administered on at 14:34; Start 10/27/18 at 14:15; Stop 10/27/18 at 14:16; Status DC Sodium Chloride 1,000 ml @ 1,000 mls/hr 1X ONCE IV Last administered on at 15:20; Start 10/27/18 at 15:00; Stop 10/27/18 at 15:59; Status DC Sodium Chloride 1,000 ml @ 1,000 mls/hr 1X ONCE IV Last administered on at 16:01; Start 10/27/18 at 15:45; Stop 10/27/18 at 16:44; Status DC Vancomycin HCl (Vanco Per Pharmacy) 1 each PRN DAILY PRN MC SEE COMMENTS Last administered on 10/27/18at 18:37; Start 10/27/18 at 16:00; Stop 10/28/18 at 13:07 ; Status DC Ceftriaxone Sodium (Rocephin) 1 gm 1X ONCE IVP Last administered on 10/27/18at 16:03; Start 10/27/18 at 16:00; Stop 10/27/18 at 16:01; Status DC Vancomycin HCl 2 gm/Sodium Chloride 500 ml @ 250 mls/hr 1X ONCE IV Last administered on 10/27/18at 16:02; Start 10/27/18 at 16:30; Stop 10/28/18 at 13:07 ; Status DC Doxycycline Hyclate (Vibra-Tab) 100 mg BID PO Last administered on 11/01/18at 08 :44; Start 10/27/18 at 21:00 Iohexol (Omnipaque 350 Mg/ml) 100 ml 1X ONCE IV Last administered on at 16:54; Start 10/27/18 at 16:45; Stop 10/27/18 at 16:46; Status DC Info (CONTRAST GIVEN -- Rx MONITORING) 1 each PRN DAILY PRN MC SEE COMMENTS; Start 10/27/18 at 16:45; Stop 10/29/18 at 16:44; Status DC Ondansetron HCl (Zofran) 4 mg PRN Q8HRS PRN IV NAUSEA/VOMITING; Start 10/27/18 at 17:00; Stop 10/28/18 at 16:59; Status DC Morphine Sulfate (Morphine Sulfate) 2 mg PRN Q2HR PRN IV PAIN; Start 10/27/18 at 17:00; Stop 10/28/18 at 16:59; Status DC Sodium Chloride 1,000 ml @ 125 mls/hr 1X ONCE IV ; Start 10/27/18 at 17:00; Stop 10/28/18 at 00:59; Status DC Labetalol HCl (Normodyne Iv Push) 10 mg 1X ONCE IVP Last administered on at 18:15; Start 10/27/18 at 18:15; Stop 10/27/18 at 18:16; Status DC Clonidine HCl (Catapres) 0.1 mg 1X ONCE PO Last administered on 10/27/18at 18: 15; Start 10/27/18 at 18:15; Stop 10/27/18 at 18:16; Status DC Clonidine HCl (Catapres) 0.1 mg PRN Q8HRS PRN PO HYPERTENSION, SEE COMMENTS Last administered on 10/31/18at 02:49; Start 10/27/18 at 18:15 Clonidine HCl (Catapres) 0.1 mg STK-MED ONCE .ROUTE ; Start 10/27/18 at 18:12; Stop 10/27/18 at 18:13; Status DC Vancomycin HCl 2 gm/Sodium Chloride 500 ml @ 250 mls/hr Q12H IV Last administered on 10/28/18at 03:59; Start 10/28/18 at 04:00; Stop 10/28/18 at 13:07 ; Status DC Vancomycin HCl (Vancomycin Trough Level) 1 each 1X ONCE MC ; Start 10/29/18 at 03:30; Stop 10/29/18 at 03:30; Status DC Sodium Chloride 1,000 ml @ 100 mls/hr Q10H IV Last administered on 10/29/18at 03:23; Start 10/27/18 at 19:00; Stop 10/29/18 at 15:20; Status DC Heparin Sodium (Porcine) (Heparin Sodium) 5,000 unit Q8HRS SQ Last administered on 11/01/18at 07:19; Start 10/27/18 at 22:00 Gabapentin (Neurontin) 300 mg TID PO Last administered on 11/01/18at 08:44; Start 10/27/18 at 21:00 Carvedilol (Coreg) 12.5 mg BIDWMEALS PO Last administered on 10/30/18at 08:52; Start 10/28/18 at 08:00; Stop 10/30/18 at 09:03; Status DC Ceftriaxone Sodium (Rocephin) 1 gm Q24H IVP ; Start 10/28/18 at 16:00; Stop at 16:00; Status DC Doxycycline Hyclate (Vibra-Tab) 100 mg BID PO ; Start 10/27/18 at 21:00; Status UNV Lisinopril (Prinivil) 20 mg DAILY PO Last administered on 10/28/18at 09:08; Start 10/28/18 at 09:00; Stop 10/28/18 at 12:05; Status DC Hydralazine HCl (Apresoline Inj) 10 mg PRN Q4HRS PRN IVP ELEVATED BP, SEE COMMENTS Last administered on 10/30/18at 02:38; Start 10/27/18 at 21:15 Albuterol Sulfate (Ventolin Neb Soln) 2.5 mg STK-MED ONCE .ROUTE ; Start at 23:48; Stop 10/28/18 at 00:52; Status DC Albuterol Sulfate (Ventolin Neb Soln) 2.5 mg PRN Q4HRS PRN NEB SHORTNESS OF BREATH Last administered on 10/28/18at 12:07; Start 10/27/18 at 23:00 Throat Lozenges (Cepacol Sore Throat Lozenge) 1 kaiser PRN Q2HRS PRN PO SORE THROAT Last administered on 10/29/18at 22:22; Start 10/28/18 at 05:00 Lactobacillus Rhamnosus (Culturelle) 1 cap BID PO Last administered on 08:43; Start 10/28/18 at 09:00 Albuterol/ Ipratropium (Duoneb) 3 ml RTQID NEB Last administered on 11/01/18 11:17; Start 10/28/18 at 12:30 Budesonide (Pulmicort) 0.5 mg RTBID NEB Last administered on 11/01/18 07:25; Start 10/28/18 at 12:30 Losartan Potassium (Cozaar) 100 mg DAILY PO ; Start 10/28/18 at 12:30; Stop at 15:03; Status DC Losartan Potassium (Cozaar) 25 mg DAILY PO Last administered on 10/30/18 08:53 ; Start 10/29/18 at 09:00; Stop 10/30/18 at 09:03; Status DC Levofloxacin/ Dextrose 150 ml @ 100 mls/hr Q24H IV Last administered on 16:48; Start 10/28/18 at 16:00; Stop 10/30/18 at 14:00; Status DC Carvedilol (Coreg) 25 mg BIDWMEALS PO Last administered on 11/01/18 08:44; Start 10/30/18 at 17:00 Furosemide (Lasix) 40 mg BID92 IVP Last administered on 11/01/18 08:44; Start 10/30/18 at 09:15 Potassium Chloride (Klor-Con) 40 meq 1X ONCE PO Last administered on 09:33; Start 10/30/18 at 09:15; Stop 10/30/18 at 09:16; Status DC Losartan Potassium (Cozaar) 50 mg DAILY PO Last administered on 11/01/18 08:44 ; Start 10/31/18 at 09:00 Magnesium Sulfate/ Dextrose 100 ml @ 25 mls/hr 1X ONCE IV Last administered on 10/30/18at 10:45; Start 10/30/18 at 10:00; Stop 10/30/18 at 13:59; Status DC Levofloxacin (Levaquin) 750 mg Q24H PO Last administered on 10/31/18 17:50; Start 10/30/18 at 16:00 Potassium Chloride (Klor-Con) 40 meq 1X ONCE PO Last administered on 11:01; Start 10/31/18 at 10:30; Stop 10/31/18 at 10:31; Status DC Potassium Chloride/Water 100 ml @ 100 mls/hr Q1H IV Last administered on 14:36; Start 10/31/18 at 11:00; Stop 10/31/18 at 12:59; Status DC Ferrous Sulfate (Feosol) 325 mg DAILYWBKFT PO Last administered on 10/31/18 11 :01; Start 10/31/18 at 10:30; Stop 10/31/18 at 13:21; Status DC Ferrous Sulfate (Feosol) 325 mg BIDWMEALS PO Last administered on 11/01/18 08: 44; Start 10/31/18 at 17:00 Pantoprazole Sodium (Protonix) 40 mg DAILYAC PO Last administered on 11/01/18 08:43; Start 10/31/18 at 16:30 Active Scripts Active Potassium Chloride 20 Meq Tablet.er 20 Meq PO DAILY 30 Days Symbicort 80-4.5 Mcg Inhaler (Budesonide/Formoterol Fumarate) 10.2 Gm Hfa.aer.ad 1 Puff IH BID 30 Days Levaquin (Levofloxacin) 750 Mg Tablet 1 Tab PO DAILY 7 Days Culturelle (Lactobacillus Rhamnosus Gg) 1 Each Cap.sprink 1 Cap PO BID 7 Days Coreg (Carvedilol) 25 Mg Tablet 25 Mg PO BIDWMEALS 30 Days Losartan Potassium 100 Mg Tablet 100 Mg PO DAILY 30 Days Reported Gabapentin 300 Mg Capsule 300 Mg PO TID Vitals/I & O Vital Sign - Last 24 Hours 10/31/18 10/31/18 10/31/18 10/31/18 14:57 15:30 17:51 19:00 Temp 98.1 97.9 98.1 97.9 Pulse 80 80 82 Resp 16 18 B/P (MAP) 151/88 (109) 151/88 134/86 (102) Pulse Ox 94 95 O2 Delivery Room Air Room Air Room Air 10/31/18 10/31/18 10/31/18 11/01/18 19:52 20:00 23:00 02:48 Temp 97.9 98.5 97.9 98.5 Pulse 73 79 Resp 18 18 B/P (MAP) 148/92 (110) 151/77 (101) Pulse Ox 95 95 O2 Delivery Room Air Room Air Room Air Room Air 11/01/18 11/01/18 11/01/18 11/01/18 07:25 07:25 07:43 08:00 Temp 97.2 97.2 Pulse 79 Resp 20 B/P (MAP) 156/95 (115) Pulse Ox 92 O2 Delivery Room Air Room Air Room Air Room Air 11/01/18 11/01/18 11/01/18 11/01/18 08:44 08:44 11:19 11:55 Temp 97.7 97.7 Pulse 79 79 77 Resp 18 B/P (MAP) 156/95 156/95 137/86 (103) Pulse Ox 95 O2 Delivery Room Air Room Air Intake and Output 10/31/18 10/31/18 11/01/18 15:00 23:00 07:00 Intake Total 100 ml 900 ml 150 ml Output Total 1075 ml 125 ml Balance 100 ml -175 ml 25 ml JESSICA LYNN MD Nov 01, 2018 12:58
--- NOTE | 2018-11-01 13:06 | PDOC ---
PROGRESS NOTES Subjective Subjective SEEN IN FOLLOW UP OF HYPONATREMIA Objective Objective Vital Signs Date Time Temp Pulse Resp B/P (MAP) Pulse Ox O2 Delivery O2 Flow Rate FiO2 11/01/18 11:55 97.7 77 18 137/86 (103) 95 Room Air 97.7 10/29/18 20:30 3.0 Intake and Output 11/01/18 07:00 Intake Total 1150 ml Output Total 1200 ml Balance -50 ml Intake Oral 950 ml IV Total 200 ml Output Urine Total 1200 ml Physical Exam Abdomen: Normal bowel sounds, Soft, No tenderness, No hepatosplenomegaly, No masses Heart: Regular rate, Normal S1, Normal S2, No murmurs, Gallops Extremities: No clubbing, No cyanosis, No edema, Normal pulses, No tenderness/ swelling General: Alert, Oriented X3, Cooperative, No acute distress Lungs: Clear to auscultation, Normal air movement Neuro: Normal gait, Normal speech, Normal tone, Sensation intact, Reflexes 2+ Diagnosis Other HYPONATREMIA Assessment Assessment Problems Medical Problems: (1) Hypertension Status: Acute (2) Hyponatremia Status: Acute (3) Right lower lobe pneumonia Status: Acute (4) Shortness of breath Status: Acute (5) Tachycardia Status: Acute Plan Plan of Care SERUM SODIUM IS WORSE. STOP LASIX. START DEMECLOCYCLINE Comment Review of Relevant I have reviewed the following items jason (where applicable) has been applied. Labs Laboratory Tests Test 10/31/18 04:30 10/31/18 15:25 11/01/18 03:50 Sodium Level 126 mmol/L (136-145) 125 mmol/L (136-145) 123 mmol/L (136-145) Potassium Level 3.0 mmol/L (3.5-5.1) 3.4 mmol/L (3.5-5.1) 3.1 mmol/L (3.5-5.1) Chloride Level 90 mmol/L (98-107) 88 mmol/L (98-107) 89 mmol/L (98-107) Carbon Dioxide Level 23 mmol/L (21-32) 23 mmol/L (21-32) 22 mmol/L (21-32) Anion Gap 13 (6-14) 14 (6-14) 12 (6-14) Blood Urea Nitrogen 14 mg/dL (8-26) 18 mg/dL (8-26) 17 mg/dL (8-26) Creatinine 0.9 mg/dL (0.7-1.3) 1.2 mg/dL (0.7-1.3) 1.0 mg/dL (0.7-1.3) Estimated GFR (Cockcroft-Gault) 87.6 62.9 77.6 Glucose Level 99 mg/dL (70-99) 105 mg/dL (70-99) 100 mg/dL (70-99) Calcium Level 9.0 mg/dL (8.5-10.1) 9.3 mg/dL (8.5-10.1) 9.0 mg/dL (8.5-10.1) Phosphorus Level 3.4 mg/dL (2.6-4.7) 3.1 mg/dL (2.6-4.7) Albumin 2.9 g/dL (3.4-5.0) 3.3 g/dL (3.4-5.0) 2.9 g/dL (3.4-5.0) White Blood Count 5.6 x10^3/uL (4.0-11.0) Red Blood Count 4.18 x10^6/uL (4.30-5.70) Hemoglobin 11.0 g/dL (13.0-17.5) Hematocrit 33.7 % (39.0-53.0) Mean Corpuscular Volume 81 fL (79-100) Mean Corpuscular Hemoglobin 26 pg (25-35) Mean Corpuscular Hemoglobin Concent 33 g/dL (31-37) Red Cell Distribution Width 17.5 % (11.5-14.5) Platelet Count 277 x10^3/uL (140-400) Neutrophils (%) (Auto) 72 % (31-73) Lymphocytes (%) (Auto) 13 % (24-48) Monocytes (%) (Auto) 14 % (0-9) Eosinophils (%) (Auto) 1 % (0-3) Basophils (%) (Auto) 1 % (0-3) Neutrophils # (Auto) 4.0 x10^3uL (1.8-7.7) Lymphocytes # (Auto) 0.7 x10^3/uL (1.0-4.8) Monocytes # (Auto) 0.8 x10^3/uL (0.0-1.1) Eosinophils # (Auto) 0.0 x10^3/uL (0.0-0.7) Basophils # (Auto) 0.0 x10^3/uL (0.0-0.2) Magnesium Level 2.2 mg/dL (1.8-2.4) Total Bilirubin 1.3 mg/dL (0.2-1.0) 1.0 mg/dL (0.2-1.0) Direct Bilirubin 0.5 mg/dL (0.0-0.2) Aspartate Amino Transf (AST/SGOT) 125 U/L (15-37) 87 U/L (15-37) Alanine Aminotransferase (ALT/SGPT) 99 U/L (16-63) 76 U/L (16-63) Alkaline Phosphatase 93 U/L (46-116) 76 U/L (46-116) Total Protein 7.9 g/dL (6.4-8.2) 7.2 g/dL (6.4-8.2) HIV (1&2) Antibody Screen Nonreactive (Nonreactive) BUN/Creatinine Ratio 17 (6-20) Albumin/Globulin Ratio 0.7 (1.0-1.7) Laboratory Tests Test 10/31/18 15:25 11/01/18 03:50 White Blood Count 5.6 x10^3/uL (4.0-11.0) Red Blood Count 4.18 x10^6/uL (4.30-5.70) Hemoglobin 11.0 g/dL (13.0-17.5) Hematocrit 33.7 % (39.0-53.0) Mean Corpuscular Volume 81 fL (79-100) Mean Corpuscular Hemoglobin 26 pg (25-35) Mean Corpuscular Hemoglobin Concent 33 g/dL (31-37) Red Cell Distribution Width 17.5 % (11.5-14.5) Platelet Count 277 x10^3/uL (140-400) Neutrophils (%) (Auto) 72 % (31-73) Lymphocytes (%) (Auto) 13 % (24-48) Monocytes (%) (Auto) 14 % (0-9) Eosinophils (%) (Auto) 1 % (0-3) Basophils (%) (Auto) 1 % (0-3) Neutrophils # (Auto) 4.0 x10^3uL (1.8-7.7) Lymphocytes # (Auto) 0.7 x10^3/uL (1.0-4.8) Monocytes # (Auto) 0.8 x10^3/uL (0.0-1.1) Eosinophils # (Auto) 0.0 x10^3/uL (0.0-0.7) Basophils # (Auto) 0.0 x10^3/uL (0.0-0.2) Sodium Level 125 mmol/L (136-145) 123 mmol/L (136-145) Potassium Level 3.4 mmol/L (3.5-5.1) 3.1 mmol/L (3.5-5.1) Chloride Level 88 mmol/L (98-107) 89 mmol/L (98-107) Carbon Dioxide Level 23 mmol/L (21-32) 22 mmol/L (21-32) Anion Gap 14 (6-14) 12 (6-14) Blood Urea Nitrogen 18 mg/dL (8-26) 17 mg/dL (8-26) Creatinine 1.2 mg/dL (0.7-1.3) 1.0 mg/dL (0.7-1.3) Estimated GFR (Cockcroft-Gault) 62.9 77.6 Glucose Level 105 mg/dL (70-99) 100 mg/dL (70-99) Calcium Level 9.3 mg/dL (8.5-10.1) 9.0 mg/dL (8.5-10.1) Phosphorus Level 3.1 mg/dL (2.6-4.7) Magnesium Level 2.2 mg/dL (1.8-2.4) Total Bilirubin 1.3 mg/dL (0.2-1.0) 1.0 mg/dL (0.2-1.0) Direct Bilirubin 0.5 mg/dL (0.0-0.2) Aspartate Amino Transf (AST/SGOT) 125 U/L (15-37) 87 U/L (15-37) Alanine Aminotransferase (ALT/SGPT) 99 U/L (16-63) 76 U/L (16-63) Alkaline Phosphatase 93 U/L (46-116) 76 U/L (46-116) Total Protein 7.9 g/dL (6.4-8.2) 7.2 g/dL (6.4-8.2) Albumin 3.3 g/dL (3.4-5.0) 2.9 g/dL (3.4-5.0) HIV (1&2) Antibody Screen Nonreactive (Nonreactive) BUN/Creatinine Ratio 17 (6-20) Albumin/Globulin Ratio 0.7 (1.0-1.7) Microbiology 10/27/18 Blood Culture - Preliminary, Resulted NO GROWTH AFTER 4 DAYS Medications Current Medications Albuterol/ Ipratropium (Duoneb) 3 ml 1X ONCE NEB Last administered on at 14:03; Start 10/27/18 at 14:00; Stop 10/27/18 at 14:01; Status DC Methylprednisolone Sodium Succinate (SOLU-Medrol 125MG VIAL) 125 mg 1X ONCE IV Last administered on 10/27/18at 14:10; Start 10/27/18 at 14:00; Stop 10/27/18 at 14:01; Status DC Labetalol HCl (Normodyne Iv Push) 10 mg 1X ONCE IVP Last administered on at 14:34; Start 10/27/18 at 14:15; Stop 10/27/18 at 14:16; Status DC Sodium Chloride 1,000 ml @ 1,000 mls/hr 1X ONCE IV Last administered on at 15:20; Start 10/27/18 at 15:00; Stop 10/27/18 at 15:59; Status DC Sodium Chloride 1,000 ml @ 1,000 mls/hr 1X ONCE IV Last administered on at 16:01; Start 10/27/18 at 15:45; Stop 10/27/18 at 16:44; Status DC Vancomycin HCl (Vanco Per Pharmacy) 1 each PRN DAILY PRN MC SEE COMMENTS Last administered on 10/27/18at 18:37; Start 10/27/18 at 16:00; Stop 10/28/18 at 13:07 ; Status DC Ceftriaxone Sodium (Rocephin) 1 gm 1X ONCE IVP Last administered on 10/27/18at 16:03; Start 10/27/18 at 16:00; Stop 10/27/18 at 16:01; Status DC Vancomycin HCl 2 gm/Sodium Chloride 500 ml @ 250 mls/hr 1X ONCE IV Last administered on 10/27/18at 16:02; Start 10/27/18 at 16:30; Stop 10/28/18 at 13:07 ; Status DC Doxycycline Hyclate (Vibra-Tab) 100 mg BID PO Last administered on 11/01/18at 08 :44; Start 10/27/18 at 21:00 Iohexol (Omnipaque 350 Mg/ml) 100 ml 1X ONCE IV Last administered on at 16:54; Start 10/27/18 at 16:45; Stop 10/27/18 at 16:46; Status DC Info (CONTRAST GIVEN -- Rx MONITORING) 1 each PRN DAILY PRN MC SEE COMMENTS; Start 10/27/18 at 16:45; Stop 10/29/18 at 16:44; Status DC Ondansetron HCl (Zofran) 4 mg PRN Q8HRS PRN IV NAUSEA/VOMITING; Start 10/27/18 at 17:00; Stop 10/28/18 at 16:59; Status DC Morphine Sulfate (Morphine Sulfate) 2 mg PRN Q2HR PRN IV PAIN; Start 10/27/18 at 17:00; Stop 10/28/18 at 16:59; Status DC Sodium Chloride 1,000 ml @ 125 mls/hr 1X ONCE IV ; Start 10/27/18 at 17:00; Stop 10/28/18 at 00:59; Status DC Labetalol HCl (Normodyne Iv Push) 10 mg 1X ONCE IVP Last administered on at 18:15; Start 10/27/18 at 18:15; Stop 10/27/18 at 18:16; Status DC Clonidine HCl (Catapres) 0.1 mg 1X ONCE PO Last administered on 10/27/18at 18: 15; Start 10/27/18 at 18:15; Stop 10/27/18 at 18:16; Status DC Clonidine HCl (Catapres) 0.1 mg PRN Q8HRS PRN PO HYPERTENSION, SEE COMMENTS Last administered on 10/31/18at 02:49; Start 10/27/18 at 18:15 Clonidine HCl (Catapres) 0.1 mg STK-MED ONCE .ROUTE ; Start 10/27/18 at 18:12; Stop 10/27/18 at 18:13; Status DC Vancomycin HCl 2 gm/Sodium Chloride 500 ml @ 250 mls/hr Q12H IV Last administered on 10/28/18at 03:59; Start 10/28/18 at 04:00; Stop 10/28/18 at 13:07 ; Status DC Vancomycin HCl (Vancomycin Trough Level) 1 each 1X ONCE MC ; Start 10/29/18 at 03:30; Stop 10/29/18 at 03:30; Status DC Sodium Chloride 1,000 ml @ 100 mls/hr Q10H IV Last administered on 10/29/18at 03:23; Start 10/27/18 at 19:00; Stop 10/29/18 at 15:20; Status DC Heparin Sodium (Porcine) (Heparin Sodium) 5,000 unit Q8HRS SQ Last administered on 11/01/18at 07:19; Start 10/27/18 at 22:00 Gabapentin (Neurontin) 300 mg TID PO Last administered on 11/01/18at 08:44; Start 10/27/18 at 21:00 Carvedilol (Coreg) 12.5 mg BIDWMEALS PO Last administered on 10/30/18at 08:52; Start 10/28/18 at 08:00; Stop 10/30/18 at 09:03; Status DC Ceftriaxone Sodium (Rocephin) 1 gm Q24H IVP ; Start 10/28/18 at 16:00; Stop at 16:00; Status DC Doxycycline Hyclate (Vibra-Tab) 100 mg BID PO ; Start 10/27/18 at 21:00; Status UNV Lisinopril (Prinivil) 20 mg DAILY PO Last administered on 10/28/18at 09:08; Start 10/28/18 at 09:00; Stop 10/28/18 at 12:05; Status DC Hydralazine HCl (Apresoline Inj) 10 mg PRN Q4HRS PRN IVP ELEVATED BP, SEE COMMENTS Last administered on 10/30/18at 02:38; Start 10/27/18 at 21:15 Albuterol Sulfate (Ventolin Neb Soln) 2.5 mg STK-MED ONCE .ROUTE ; Start at 23:48; Stop 10/28/18 at 00:52; Status DC Albuterol Sulfate (Ventolin Neb Soln) 2.5 mg PRN Q4HRS PRN NEB SHORTNESS OF BREATH Last administered on 10/28/18 12:07; Start 10/27/18 at 23:00 Throat Lozenges (Cepacol Sore Throat Lozenge) 1 kaiser PRN Q2HRS PRN PO SORE THROAT Last administered on 10/29/18 22:22; Start 10/28/18 at 05:00 Lactobacillus Rhamnosus (Culturelle) 1 cap BID PO Last administered on 08:43; Start 10/28/18 at 09:00 Albuterol/ Ipratropium (Duoneb) 3 ml RTQID NEB Last administered on 11/01/18 11:17; Start 10/28/18 at 12:30 Budesonide (Pulmicort) 0.5 mg RTBID NEB Last administered on 11/01/18 07:25; Start 10/28/18 at 12:30 Losartan Potassium (Cozaar) 100 mg DAILY PO ; Start 10/28/18 at 12:30; Stop at 15:03; Status DC Losartan Potassium (Cozaar) 25 mg DAILY PO Last administered on 10/30/18 08:53 ; Start 10/29/18 at 09:00; Stop 10/30/18 at 09:03; Status DC Levofloxacin/ Dextrose 150 ml @ 100 mls/hr Q24H IV Last administered on 16:48; Start 10/28/18 at 16:00; Stop 10/30/18 at 14:00; Status DC Carvedilol (Coreg) 25 mg BIDWMEALS PO Last administered on 11/01/18 08:44; Start 10/30/18 at 17:00 Furosemide (Lasix) 40 mg BID92 IVP Last administered on 11/01/18 08:44; Start 10/30/18 at 09:15 Potassium Chloride (Klor-Con) 40 meq 1X ONCE PO Last administered on 09:33; Start 10/30/18 at 09:15; Stop 10/30/18 at 09:16; Status DC Losartan Potassium (Cozaar) 50 mg DAILY PO Last administered on 11/01/18 08:44 ; Start 10/31/18 at 09:00 Magnesium Sulfate/ Dextrose 100 ml @ 25 mls/hr 1X ONCE IV Last administered on 10/30/18 10:45; Start 10/30/18 at 10:00; Stop 10/30/18 at 13:59; Status DC Levofloxacin (Levaquin) 750 mg Q24H PO Last administered on 10/31/18 17:50; Start 10/30/18 at 16:00 Potassium Chloride (Klor-Con) 40 meq 1X ONCE PO Last administered on 11:01; Start 10/31/18 at 10:30; Stop 10/31/18 at 10:31; Status DC Potassium Chloride/Water 100 ml @ 100 mls/hr Q1H IV Last administered on 14:36; Start 10/31/18 at 11:00; Stop 10/31/18 at 12:59; Status DC Ferrous Sulfate (Feosol) 325 mg DAILYWBKFT PO Last administered on 10/31/18 11 :01; Start 10/31/18 at 10:30; Stop 10/31/18 at 13:21; Status DC Ferrous Sulfate (Feosol) 325 mg BIDWMEALS PO Last administered on 11/01/18 08: 44; Start 10/31/18 at 17:00 Pantoprazole Sodium (Protonix) 40 mg DAILYAC PO Last administered on 11/01/18 08:43; Start 10/31/18 at 16:30 Active Scripts Active Potassium Chloride 20 Meq Tablet.er 20 Meq PO DAILY 30 Days Symbicort 80-4.5 Mcg Inhaler (Budesonide/Formoterol Fumarate) 10.2 Gm Hfa.aer.ad 1 Puff IH BID 30 Days Levaquin (Levofloxacin) 750 Mg Tablet 1 Tab PO DAILY 7 Days Culturelle (Lactobacillus Rhamnosus Gg) 1 Each Cap.sprink 1 Cap PO BID 7 Days Coreg (Carvedilol) 25 Mg Tablet 25 Mg PO BIDWMEALS 30 Days Losartan Potassium 100 Mg Tablet 100 Mg PO DAILY 30 Days Reported Gabapentin 300 Mg Capsule 300 Mg PO TID Vitals/I & O Vital Sign - Last 24 Hours 4/19/19 4/19/19 4/19/19 4/19/19 14:57 15:30 17:51 19:00 Temp 98.1 97.9 98.1 97.9 Pulse 80 80 82 Resp 16 18 B/P (MAP) 151/88 (109) 151/88 134/86 (102) Pulse Ox 94 95 O2 Delivery Room Air Room Air Room Air 10/31/18 10/31/18 10/31/18 11/01/18 19:52 20:00 23:00 02:48 Temp 97.9 98.5 97.9 98.5 Pulse 73 79 Resp 18 18 B/P (MAP) 148/92 (110) 151/77 (101) Pulse Ox 95 95 O2 Delivery Room Air Room Air Room Air Room Air 11/01/18 11/01/18 11/01/18 11/01/18 07:25 07:25 07:43 08:00 Temp 97.2 97.2 Pulse 79 Resp 20 B/P (MAP) 156/95 (115) Pulse Ox 92 O2 Delivery Room Air Room Air Room Air Room Air 11/01/18 11/01/18 11/01/18 11/01/18 08:44 08:44 11:19 11:55 Temp 97.7 97.7 Pulse 79 79 77 Resp 18 B/P (MAP) 156/95 156/95 137/86 (103) Pulse Ox 95 O2 Delivery Room Air Room Air Intake and Output 10/31/18 10/31/18 11/01/18 15:00 23:00 07:00 Intake Total 100 ml 900 ml 150 ml Output Total 1075 ml 125 ml Balance 100 ml -175 ml 25 ml ARNOLDO MCKEON MD Nov 01, 2018 13:06
[2018-11-01] MEDS ORDERED: DEMECLOCYCLINE HCL 150 MG TABLET. PO SCH (13:30)
[2018-11-01] MEDS ORDERED: Demeclocycline Hcl PO (13:40)
[2018-11-01] MEDS ORDERED: POTASSIUM CHLORIDE 10MEQ 100 ML IV SCH (14:00)
[2018-11-01] MEDS ORDERED: POTASSIUM CHLORIDE 20 MEQ TABLET.ER. PO ONE (14:00)
--- NOTE | 2018-11-01 15:20 | NUR ---
PATIENTS IV REMOVED AND TELE MONITOR OFF. DISCHARGE INSTRUCTIONS DISCUSSED WITH PATIENT AND PATIENTS . PRESCRIPTIONS GIVEN TO PATIENT. PATIENT HAS NO QUESTIONS AT TIME OF DISCHARGE. PATIENT STABLE AT TIME OF DISCHARGE. PATIENT ESCORTED PER WHEELCHAIR TO VEHICLE AT TIME OF DISCHARGE BY THIS RN.
== END 2018-11-01 15:31 | disposition home or self-care (01) | DRG 177 ==
LOC: ER 12:39 → 2 NORTH 16:15
PROVIDERS: ADMIT Internal Medicine; ATTEND Internal Medicine
DX: J15.6 Pneumonia due to other Gram-negative bacteria (principal); J96.01 Acute respiratory failure with hypoxia; I50.31 Acute diastolic (congestive) heart failure; E87.1 Hypo-osmolality and hyponatremia; I42.0 Dilated cardiomyopathy; I16.0 Hypertensive urgency; E66.9 Obesity, unspecified; D50.9 Iron deficiency anemia, unspecified; G62.9 Polyneuropathy, unspecified; E87.6 Hypokalemia; D72.810 Lymphocytopenia; K76.0 Fatty (change of) liver, not elsewhere classified; I11.0 Hypertensive heart disease with heart failure; Z98.1 Arthrodesis status; Z88.1 Allergy status to other antibiotic agents; Z68.29 Body mass index [BMI] 29.0-29.9, adult; I77.810 Thoracic aortic ectasia
CPT/HCPCS: 36415; 36600; 71045; 71275; 76700; 80048; 80053; 80069; 80076; 81001; 82248; 82436; 82553; 82805; 83036; 83540; 83550; 83605; 83735; 83880; 83930; 83935; 84100; 84133; 84145; 84300; 84443; 84484; 85007; 85025; 85379; 85610; 86703; 86705; 86709; 86803; 87040; 87340; 87449; 93005; 93306; 94640; 94667; 94668; 94760; 96361; 96365; 96375; J0360; J0696; J1644; J1940; J1956; J2930; J3370; J3475; J3480; J3490; J7030; J7040; J7613; J7620; J7626; Q9967; 99285-25

== ENCOUNTER 2018-12-20 01:03 | Inpatient (IN) | payer BC ==
[~2018-12-20] VITALS: Ht 193 cm; Wt 73.7 kg
[~2018-12-20 01:03] MED LIST: BUDE10.22 IH; CARV25TA PO; Demeclocycline Hcl PO; GABA300C18 PO; LACT1CAP19 PO; LEVO750T31 PO; LOSA100T14 PO; POTA20TA82 PO
[2018-12-20 02:00] VITALS: BP 181/87
[2018-12-20] MEDS ORDERED: IV NORMAL SALINE 1000ML BAG 1,000 ML IV ONE (02:00)
[2018-12-20] MEDS ORDERED: ONDANSETRON PF 4 MG/2 ML VIAL. IV ONE (02:00)
[2018-12-20] MEDS ORDERED: fentaNYL PF VIAL 100 MCG/2 ML VIAL IV ONE (02:00)
[2018-12-20] MEDS ORDERED: KETAMINE HCL IN NACL, ISO-OSM 50 MG/5 ML SYRINGE IV ONE (02:15)
[2018-12-20] MEDS ORDERED: fentaNYL PF VIAL 100 MCG/2 ML VIAL IV PRN ×2 (02:15→08:45)
[2018-12-20] MEDS ORDERED: ONDANSETRON PF 4 MG/2 ML VIAL. IV PRN ×2 (02:15→08:45)
--- NOTE | 2018-12-20 02:21 | PHYS DOC ---
Past Medical History Past Medical History: Hypertension, Other Additional Past Medical Histor: SEASONAL ALLERGIES Past Surgical History: Hip Replacement, Other Additional Past Surgical Histo: SHOULDER,R ANKLE FUSION,HERNIA, L HIP Alcohol Use: Occasionally Drug Use: None Adult General Chief Complaint Chief Complaint: HIP PAIN HPI HPI 53-year-old male presents with left hip pain. He states he was just rolling over in bed and felt his hip pop out. He is just shy of 1 month history of his left hip replacement. He denies any other injuries. He states his biggest concern right now is just the amount of pain he's been in. States this is the first time that his hip has popped out like this since his surgery last month.[] Review of Systems Review of Systems Constitutional: Denies fever or chills [] Eyes: Denies change in visual acuity, redness, or eye pain [] HENT: Denies nasal congestion or sore throat [] Respiratory: Denies cough or shortness of breath [] Cardiovascular: No additional information not addressed in HPI [] GI: Denies abdominal pain, nausea, vomiting, bloody stools or diarrhea [] : Denies dysuria or hematuria [] Musculoskeletal: Left hip] Integument: Denies rash or skin lesions [] Neurologic: Denies headache, focal weakness or sensory changes [] Endocrine: Denies polyuria or polydipsia [] All other systems were reviewed and found to be within normal limits, except as documented in this note. Current Medications Current Medications Current Medications Medications (Trade) Dose Ordered Sig/Jennifer Start Time Stop Time Status Last Admin Dose Admin Fentanyl Citrate (Fentanyl 2ml Vial) 50 mcg PRN Q1HR PRN 12/20/18 02:15 12/21/18 02:14 UNV Ketamine HCl (Ketamine) 100 mg 1X ONCE 12/20/18 02:15 12/20/18 02:16 DC 12/20/18 02:04 100 MG Ondansetron HCl (Zofran) 4 mg PRN Q8HRS PRN 12/20/18 02:15 12/21/18 02:14 UNV Sodium Chloride 1,000 ml @ 125 mls/hr Q8H 12/20/18 02:12 12/21/18 02:11 UNV Allergies Allergies Allergies Coded Allergies Type Severity Reaction Last Updated Verified clarithromycin Allergy Intermediate 10/27/18 Yes Physical Exam Physical Exam Constitutional: Well developed, well nourished, moderate distress, non-toxic appearance. [] HENT: Normocephalic, atraumatic, bilateral external ears normal, oropharynx moist, no oral exudates, nose normal. [] Eyes: PERRLA, EOMI, conjunctiva normal, no discharge. [] Neck: Normal range of motion, no tenderness, supple, no stridor. [] Cardiovascular:Heart rate regular rhythm, no murmur [] Lungs & Thorax: Bilateral breath sounds clear to auscultation [] Abdomen: Bowel sounds normal, soft, no tenderness, no masses, no pulsatile masses. [] Skin: Warm, dry, no erythema, no rash. [] Back: No tenderness, no CVA tenderness. [] Extremities: Left hip is shortened and externally rotated. [] Neurologic: Alert and oriented X 3, normal motor function, normal sensory function, no focal deficits noted. [] Psychologic: Affect normal, judgement normal, mood normal. 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 (See chart for details) [Procedural sedation: Appropriate consents were obtained and signed. The patient was then given just shy of 1 mg/kg of ketamine with excellent procedural sedation and good relaxation. I attempted to flex his hip with anterior traction while holding the pelvis stable but was unable to manipulate the hip well enough to get it in the socket. I attempted twice. Patient tolerated the procedure and the sedation very well.] Dragon Disclaimer Dragon Disclaimer This electronic medical record was generated, in whole or in part, using a voice recognition dictation system. Departure Departure Impression: Primary Impression: Dislocation of left hip Disposition: ADMITTED INPATIENT Admitting Physician: Esteban Dasilva Condition: STABLE Referrals: Maryam DASILVA MD (PCP) Problem Qualifiers Primary Impression: Dislocation of left hip Encounter type: initial encounter Qualified Codes: S73.005A - Unspecified dislocation of left hip, initial encounter LACHO CONWAY DO Dec 20, 2018 02:21
[2018-12-20] MEDS ORDERED: IV NORMAL SALINE 1000ML BAG 1,000 ML IV SCH (02:30)
[2018-12-20 02:32] LABS: BASO # 0.1 x10^3/uL (0.0-0.2); BASO % 2 % (0-3); EOS # 0.3 x10^3/uL (0.0-0.7); EOS % 6 % (0-3); HEMATOCRIT 30.3 % (39.0-53.0); HEMOGLOBIN 10.5 g/dL (13.0-17.5); LYMPH # 1.3 x10^3/uL (1.0-4.8); LYMPH % 25 % (24-48); MEAN CORPUSCULAR HEMOGLOBIN 33 pg (25-35); MEAN CORPUSCULAR HGB CONC 35 g/dL (31-37); MEAN CORPUSCULAR VOLUME 95 fL (79-100); MONO # 0.9 x10^3/uL (0.0-1.1); MONO % 18 % (0-9); NEUT # 2.5 x10^3uL (1.8-7.7); NEUT % 50 % (31-73); PLATELET COUNT 240 x10^3/uL (140-400); RED BLOOD COUNT 3.21 x10^6/uL (4.30-5.70); RED CELL DISTRIBUTION WIDTH 25.4 % (11.5-14.5); WHITE BLOOD COUNT 5.1 x10^3/uL (4.0-11.0)
[2018-12-20 02:40] LABS: CALCIUM 8.4 mg/dL (8.5-10.1); CREATININE 0.9 mg/dL (0.7-1.3); GFR 87.6; POTASSIUM 3.8 mmol/L (3.5-5.1)
[2018-12-20 02:46] LABS: ALBUMIN/GLOBULIN RATIO 0.8 (1.0-1.7); TOTAL BILIRUBIN 0.4 mg/dL (0.2-1.0)
[2018-12-20 02:55] VITALS: BP 176/111
[2018-12-20 03:03] LABS: PLT ESTIMATE ADEQUATE (ADEQUATE)
[2018-12-20 03:04] LABS: HYPOCHROMIA SLIGHT
[2018-12-20 03:05] LABS: ANISOCYTOSIS MARKED
[2018-12-20] MEDS: fentaNYL PF VIAL 100 MCG/2 ML VIAL IV PRN ×6 (04:01→15:29)
--- NOTE | 2018-12-20 06:21 | NUR ---
Pt repeatedly asking for increase of pain meds, despite being told that this RN had already spoken with Dr Golden and he would not order more. Pt can be heard from the nurses' station throwing things around his room. Spoke with Dr Golden again and Toradol ordered; when pt informed of this he replied, "Well it's not a fing pill, is it?" Will administer toradol and continue with plan of care.
[2018-12-20] MEDS: KETOROLAC 15 MG/ML VIAL. IV PRN ×2 (06:29→15:28)
[2018-12-20] MEDS ORDERED: PROPOFOL 20 ML IV ONE (07:50)
[2018-12-20] MEDS ORDERED: LIDOCAINE 2% PF 5 ML VIAL. ONE (07:50)
[2018-12-20] MEDS ORDERED: SUCCINYLCHOLINE 200 MG/10 ML VIAL. ONE (08:12)
--- NOTE | 2018-12-20 08:13 | PDOC2 ---
CONSULT Date of Consult Date of Consult DATE: 12/20/18 TIME: 08:08 Reason for Consult Reason for Consult: dislocation of prosthetic left hip Identification/Chief Complaint Chief Complaint left hip dislocation, left hip pain Source Source: Chart review, Patient History of Present Illness Reason for Visit: This 53-year-old man had a left total hip replacement by Dr. Iggy Diaz at [facility] on 11/24/18 after which Mr. Peñaloza was an inpatient for 5 days. He was at home last night getting ready for bed. The ER notes says he was rolling over in bed. He felt his hip dislocate. This is his first dislocation, and the original surgery by Dr. Diaz was less than one month ago. He denies any symptoms of infection. Past Medical History Past Medical History hypertension multiple joints with osteoarthritis--cuff tear arthropathy, prior ankle fusion (probably not fully healed) for ankle OA, hip replacement recently erectile dysfunction Musculoskeletal: Osteoarthritis Past Surgical History Past Surgical History ankle fusion [address] Sheppard at , and per patient "not doing well" more painful than preop and he describes incomplete fusion right rotator cuff surgery x2 with me many years ago, now with cuff tear arthropathy both shoulders Past Surgical History: Total hip replacement Family History Family History: Hypertension Social History Social History on disability now No ALCOHOL: none Current Medications Current Medications Current Medications Sodium Chloride 1,000 ml @ 1,000 mls/hr 1X ONCE IV Last administered on 12/20/18at 02:00; Start 12/20/18 at 02:00; Stop 12/20/18 at 02:59; Status DC Fentanyl Citrate (Fentanyl 2ml Vial) 50 mcg 1X ONCE IV Last administered on 12/20/18at 02:01; Start 12/20/18 at 02:00; Stop 12/20/18 at 02:01; Status DC Ondansetron HCl (Zofran) 4 mg 1X ONCE IV Last administered on 12/20/18at 02:01; Start 12/20/18 at 02:00; Stop 12/20/18 at 02:01; Status DC Ketamine HCl (Ketamine) 100 mg 1X ONCE IV Last administered on 12/20/18at 02:04; Start 12/20/18 at 02:15; Stop 12/20/18 at 02:16; Status DC Ondansetron HCl (Zofran) 4 mg PRN Q8HRS PRN IV NAUSEA/VOMITING 1ST CHOICE; Start 12/20/18 at 02:15; Stop 12/21/18 at 02:14 Fentanyl Citrate (Fentanyl 2ml Vial) 50 mcg PRN Q1HR PRN IV SEVERE PAIN Last administered on 12/20/18at 03:08; Start 12/20/18 at 02:15; Stop 12/20/18 at 03:33; Status DC Sodium Chloride 1,000 ml @ 125 mls/hr Q8H IV Last administered on 12/20/18at 03:08; Start 12/20/18 at 02:30; Stop 12/21/18 at 02:29 Fentanyl Citrate (Fentanyl 2ml Vial) 75 mcg PRN Q4HRS PRN IV SEVERE PAIN Last administered on 12/20/18at 04:01; Start 12/20/18 at 03:45 Lorazepam (Ativan Inj) 0.5 mg 1X ONCE IV Last administered on 12/20/18at 03:56; Start 12/20/18 at 04:00; Stop 12/20/18 at 04:01; Status DC Ketorolac Tromethamine (Toradol 15mg Vial) 10 mg PRN Q6HRS PRN IV MODERATE PAIN Last administered on 12/20/18at 06:29; Start 12/20/18 at 06:30; Stop 12/25/18 at 06:29 Propofol 20 ml @ As Directed STK-MED ONCE IV ; Start 12/20/18 at 07:50; Stop 12/20/18 at 07:51; Status DC Lidocaine HCl (Lidocaine Pf 2% Vial) 5 ml STK-MED ONCE .ROUTE ; Start 12/20/18 at 07:50; Stop 12/20/18 at 07:51; Status DC Active Scripts Active Coreg (Carvedilol) 25 Mg Tablet 25 Mg PO BIDWMEALS 30 Days Reported Gabapentin 300 Mg Capsule 300 Mg PO TID Allergies Allergies: Coded Allergies: clarithromycin (Verified Allergy, Intermediate, 10/27/18) ROS General: No: Chills, Night Sweats Eyes: No Decreased vision, No Double vision HEENT: No: Heacaches Respiratory: No: Cough, Shortness of breath Cardiovascular: No Chest Pain Gastrointestinal: No Nausea, No Vomiting, No Diarrhea, No Constipation Musculoskeletal: Yes Joint Pain Neurological: No Behavorial Changes, No Headaches Physical Exam General: Alert, Cooperative HEENT: Atraumatic Lungs: Normal air movement Heart: Regular rate Extremities: Other (the left leg is shortened and rotated. He is able to dorsiflex and plantarflex the foot. pulse is intact at the foot. Sensation is intact at the foot.) Skin: No significant lesion, Other (left hip incision shows no drainage, has a slight erythema at the incision consistent with recent surgery) Neuro: Normal speech, Sensation intact MUSCULOSKELETAL: Abnormal exam of left (hip as above) Vitals VITALS Vital Signs Date Time Temp Pulse Resp B/P (MAP) Pulse Ox O2 Delivery O2 Flow Rate FiO2 12/20/18 04:14 Room Air 12/20/18 02:55 97.6 87 18 176/111 (132) 96 97.6 12/20/18 02:25 2.0 Labs Labs Laboratory Tests Test 12/20/18 02:20 White Blood Count 5.1 x10^3/uL (4.0-11.0) Red Blood Count 3.21 x10^6/uL (4.30-5.70) Hemoglobin 10.5 g/dL (13.0-17.5) Hematocrit 30.3 % (39.0-53.0) Mean Corpuscular Volume 95 fL (79-100) Mean Corpuscular Hemoglobin 33 pg (25-35) Mean Corpuscular Hemoglobin Concent 35 g/dL (31-37) Red Cell Distribution Width 25.4 % (11.5-14.5) Platelet Count 240 x10^3/uL (140-400) Neutrophils (%) (Auto) 50 % (31-73) Lymphocytes (%) (Auto) 25 % (24-48) Monocytes (%) (Auto) 18 % (0-9) Eosinophils (%) (Auto) 6 % (0-3) Basophils (%) (Auto) 2 % (0-3) Neutrophils # (Auto) 2.5 x10^3uL (1.8-7.7) Lymphocytes # (Auto) 1.3 x10^3/uL (1.0-4.8) Monocytes # (Auto) 0.9 x10^3/uL (0.0-1.1) Eosinophils # (Auto) 0.3 x10^3/uL (0.0-0.7) Basophils # (Auto) 0.1 x10^3/uL (0.0-0.2) Platelet Estimate Adequate (ADEQUATE) Hypochromasia Slight Anisocytosis Marked Sodium Level 129 mmol/L (136-145) Potassium Level 3.8 mmol/L (3.5-5.1) Chloride Level 94 mmol/L (98-107) Carbon Dioxide Level 27 mmol/L (21-32) Anion Gap 8 (6-14) Blood Urea Nitrogen 5 mg/dL (8-26) Creatinine 0.9 mg/dL (0.7-1.3) Estimated GFR (Cockcroft-Gault) 87.6 BUN/Creatinine Ratio 6 (6-20) Glucose Level 109 mg/dL (70-99) Calcium Level 8.4 mg/dL (8.5-10.1) Total Bilirubin 0.4 mg/dL (0.2-1.0) Aspartate Amino Transf (AST/SGOT) 27 U/L (15-37) Alanine Aminotransferase (ALT/SGPT) 18 U/L (16-63) Alkaline Phosphatase 102 U/L (46-116) Total Protein 7.0 g/dL (6.4-8.2) Albumin 3.0 g/dL (3.4-5.0) Albumin/Globulin Ratio 0.8 (1.0-1.7) Laboratory Tests Test 12/20/18 02:20 White Blood Count 5.1 x10^3/uL (4.0-11.0) Red Blood Count 3.21 x10^6/uL (4.30-5.70) Hemoglobin 10.5 g/dL (13.0-17.5) Hematocrit 30.3 % (39.0-53.0) Mean Corpuscular Volume 95 fL (79-100) Mean Corpuscular Hemoglobin 33 pg (25-35) Mean Corpuscular Hemoglobin Concent 35 g/dL (31-37) Red Cell Distribution Width 25.4 % (11.5-14.5) Platelet Count 240 x10^3/uL (140-400) Neutrophils (%) (Auto) 50 % (31-73) Lymphocytes (%) (Auto) 25 % (24-48) Monocytes (%) (Auto) 18 % (0-9) Eosinophils (%) (Auto) 6 % (0-3) Basophils (%) (Auto) 2 % (0-3) Neutrophils # (Auto) 2.5 x10^3uL (1.8-7.7) Lymphocytes # (Auto) 1.3 x10^3/uL (1.0-4.8) Monocytes # (Auto) 0.9 x10^3/uL (0.0-1.1) Eosinophils # (Auto) 0.3 x10^3/uL (0.0-0.7) Basophils # (Auto) 0.1 x10^3/uL (0.0-0.2) Platelet Estimate Adequate (ADEQUATE) Hypochromasia Slight Anisocytosis Marked Sodium Level 129 mmol/L (136-145) Potassium Level 3.8 mmol/L (3.5-5.1) Chloride Level 94 mmol/L (98-107) Carbon Dioxide Level 27 mmol/L (21-32) Anion Gap 8 (6-14) Blood Urea Nitrogen 5 mg/dL (8-26) Creatinine 0.9 mg/dL (0.7-1.3) Estimated GFR (Cockcroft-Gault) 87.6 BUN/Creatinine Ratio 6 (6-20) Glucose Level 109 mg/dL (70-99) Calcium Level 8.4 mg/dL (8.5-10.1) Total Bilirubin 0.4 mg/dL (0.2-1.0) Aspartate Amino Transf (AST/SGOT) 27 U/L (15-37) Alanine Aminotransferase (ALT/SGPT) 18 U/L (16-63) Alkaline Phosphatase 102 U/L (46-116) Total Protein 7.0 g/dL (6.4-8.2) Albumin 3.0 g/dL (3.4-5.0) Albumin/Globulin Ratio 0.8 (1.0-1.7) Images Images Report reviewed, images independently reviewed. Dislocated left total hip, posterolateral. No fractures or implant loosening. Components are well aligned. [facility] [address] [place] [address] IMAGING REPORT Signed PATIENT: TACHO PEÑALOZA ACCOUNT: [id number] : 1965 LOCATION: [address] [place] [address] AGE: 53 SEX: M EXAM STATUS: ADM IN ORD. PHYSICIAN: LACHO CONWAY DO REASON: hip dislocation - LEFT PROCEDURE: HIP LEFT 2V WITH PELVIS AP pelvis and AP lateral left hip x-rays HISTORY: Left hip dislocation. FINDINGS: Left hip arthroplasty, there is superior dislocation of the femoral head prosthesis lateral of the iliac crest above the acetabular cup prosthesis. No periprosthetic fracture. Remainder of the imaged pelvis is intact. IMPRESSION: Left hip dislocation. Electronically signed by: Micheal Nascimento MD (12/20/2018 9:24 AM) [facility] Assessment/Plan Assessment/Plan T84.021A Dislocation of internal left hip prosthesis, initial encounter. I recommended a closed reduction in the operating room with general anesthesia. (A closed reduction was previously attempted in the emergency room with sedation and was unsuccessful.) I discussed with him the potential risks of redislocation, neurovascular injury, dissociation or loosening of the components, possible underlying infection, and the unlikely need for open reduction, or other potential surgical or anesthetic complications. All of his questions about surgery were answered and he desires to proceed. He should follow-up with Dr. Diaz after discharge. CC: Iggy Diaz MD JANET CARSON MD Dec 20, 2018 08:13
[2018-12-20] MEDS ORDERED: IV RINGERS,LACTATED 1000ML 1,000 ML IV SCH (08:42)
[2018-12-20] MEDS ORDERED: MORPHINE SULFATE 2 MG/ML VIAL. IV PRN (08:45)
[2018-12-20] MEDS ORDERED: PROCHLORPERAZINE 10 MG/2 ML VIAL. IV PRN (08:45)
[2018-12-20] MEDS ORDERED: LIDOCAINE 1% PF 2 ML VIAL. ID PRN (08:45)
[2018-12-20] MEDS ORDERED: HYDROmorphone 2 MG/ML VIAL IV PRN (08:45)
--- NOTE | 2018-12-20 09:13 | PDOC4 ---
Operative Note Operative Note Date of Procedure: December 20, 2018 Pre-Op Diagnosis: T84.021A Dislocation of internal left hip prosthesis, initial encounter Post-Op Diagnosis: same Procedure: CPT 99131 Closed treatment of left post hip arthroplasty dislocation requiring regional or general anesthesia Surgeon: Janet Carson MD Anesthesia: General EBL: None Specimens Obtained: none Complications: none Drains: none Indications for Procedure: The patient is a 53-year-old year old with a closed left total hip dislocation. He had hip replacement surgery November 24, [address] Iggy Contreras at [facility]. He was getting ready for bed at midnight and his hip dislocated. The ER attempted a reduction but was unable to achieve a reduction. He was admitted for reduction under anesthesia. I recommended a closed reduction under general anesthesia. The patient and I discussed the risks, benefits and alternatives of reduction, including risks of recurrent dislocation, neurovascular injury, fracture, dissociation of the hip components, or other potential surgical or anesthetic complications.All of the patients questions were answered and he desires to proceed. Procedure in Detail: The patient was identified in the preoperative holding area. The correct left hip was noted by me with the limb shortened and rotated. The anesthesia department used general anesthesia. The patient remained supine on the cart. A timeout procedure was performed. After general anesthesia, reduction was performed. I stood on the bed, internally rotated the hip, flexed the hip, adducted the hip, and applied traction, until the hip reduced. The hip was then extended and abducted. Gentle range of motion was performed to help confirm the reduction, and nice smooth hip joint motion was noted. Portable x-ray was used to confirm the reduction. X-ray images were interpreted intraoperatively by me. An abduction pillow was placed with the hip in safe position of abduction and external rotation. The patient was allowed to awake and remained in stable condition. There were no apparent complications. JANET CARSON MD Dec 20, 2018 09:13
[2018-12-20] MEDS ORDERED: fentaNYL PF VIAL 100 MCG/2 ML VIAL ONE (09:16)
[2018-12-20] MEDS ORDERED: MORPHINE SULFATE 2 MG/ML VIAL. ONE (09:16)
--- NOTE | 2018-12-20 09:26 | RAD ---
AP pelvis and AP lateral left hip x-rays HISTORY: Left hip dislocation. FINDINGS: Left hip arthroplasty, there is superior dislocation of the femoral head prosthesis lateral of the iliac crest above the acetabular cup prosthesis. No periprosthetic fracture. Remainder of the imaged pelvis is intact. IMPRESSION: Left hip dislocation. Electronically signed by: Micheal Nascimento MD (12/20/2018 9:24 AM) [facility]
--- NOTE | 2018-12-20 09:27 | RAD ---
AP left hip x-ray one view COMPARISON: Left hip x-rays December 20, 2018. HISTORY: Left hip post reduction. FINDINGS: There has been reduction of the dislocated femoral head prosthesis since the prior exam with appropriate articulation of the femoral head prosthesis with the acetabular cup prosthesis evident. No periprosthetic fracture evident. There is lateral hip soft tissue edema and swelling noted. IMPRESSION: Reduction of the left hip dislocation. Electronically signed by: Micheal Nascimento MD (12/20/2018 9:25 AM) [facility]
--- NOTE | 2018-12-20 09:30 | RAD ---
AP chest x-ray HISTORY: Dislocated hip, preoperative assessment. FINDINGS: Fixation plate and screws at the left clavicle are noted. Heart size mildly enlarged, stable. Mediastinal silhouette is unremarkable. Elevation of the right diaphragm is stable to prior exam. No pneumothorax, pulmonary opacities or pleural effusions evident. IMPRESSION: No acute process. Stable exam. Electronically signed by: Micheal Nascimento MD (12/20/2018 9:27 AM) [facility]
[2018-12-20 11:00] VITALS: BP 172/98
--- NOTE | 2018-12-20 11:46 | PDOC1 ---
History and Physical Date of Admission Date of Admission 12/20/18 Identification/Chief Complaint Chief Complaint spontaneous hip dislocation/pain Source Source: Chart review, Patient History of Present Illness History of Present Illness He was taking off his socks last night and suddenly his left hip that was replaced less than a month ago dislocated and he had significant pain and came to ER, attempt to relocate it in ER were unsuccessful so he was admitted and taken to OR this am and under sedation it was replaced, his pain has improved but still present. He has had a hx of hyponatremia but his sodium is stable at 129 Past Medical History Cardiovascular: HTN Pulmonary: No pertinent hx CENTRAL NERVOUS SYSTEM: Periperal neuropathy GI: No pertinent hx Heme/Onc: No pertinent hx Hepatobiliary: No pertinent hx Psych: Addictions Rheumatologic: Other (OA) Infectious disease: No pertinent hx ENT: No pertinent hx Renal/: No pertinent hx Endocrine: No pertinent hx Dermatology: No pertinent hx Past Surgical History Past Surgical History: Total hip replacement Family History Family History: Alcohol Abuse, Heart Disease Social History Smoke: No ALCOHOL: heavy Drugs: None Current Medications Current Medications Current Medications Medications (Trade) Dose Ordered Sig/Jennifer Start Time Stop Time Status Last Admin Dose Admin Fentanyl Citrate (Fentanyl 2ml Vial) 100 mcg STK-MED ONCE 12/20/18 09:16 12/20/18 09:17 DC Hydromorphone HCl (Dilaudid) 0.5 mg PRN Q10MIN PRN 12/20/18 08:45 12/20/18 18:00 Ketamine HCl (Ketamine) 100 mg 1X ONCE 12/20/18 02:15 12/20/18 02:16 DC 12/20/18 02:04 100 MG Ketorolac Tromethamine (Toradol 15mg Vial) 10 mg PRN Q6HRS PRN 12/20/18 06:30 12/25/18 06:29 12/20/18 06:29 10 MG Lidocaine HCl (Lidocaine Pf 2% Vial) 5 ml STK-MED ONCE 12/20/18 07:50 12/20/18 07:51 DC Lidocaine HCl (Xylocaine-Mpf 1% 2ml Vial) 2 ml PRN 1X PRN 12/20/18 08:45 12/20/18 18:00 Lorazepam (Ativan Inj) 0.5 mg 1X ONCE 12/20/18 04:00 12/20/18 04:01 DC 12/20/18 03:56 0.5 MG Morphine Sulfate (Morphine Sulfate) 2 mg STK-MED ONCE 12/20/18 09:16 12/20/18 09:17 DC Ondansetron HCl (Zofran) 4 mg PRN Q6HRS PRN 12/20/18 08:45 12/20/18 18:00 Prochlorperazine Edisylate (Compazine) 5 mg PACU PRN PRN 12/20/18 08:45 12/20/18 18:00 Propofol 20 ml @ As Directed STK-MED ONCE 12/20/18 07:50 12/20/18 07:51 DC Ringer's Solution 1,000 ml @ 30 mls/hr Q24H 12/20/18 08:42 12/20/18 20:41 12/20/18 08:42 30 MLS/HR Sodium Chloride 1,000 ml @ 125 mls/hr Q8H 12/20/18 02:30 12/21/18 02:29 12/20/18 03:08 125 MLS/HR Succinylcholine Chloride (Anectine) 200 mg STK-MED ONCE 12/20/18 08:12 12/20/18 08:13 DC Allergies Allergies Allergies Coded Allergies Type Severity Reaction Last Updated Verified clarithromycin Allergy Intermediate 10/27/18 Yes ROS Review of System CONSTITUTIONAL: No fever or chills EYES: No recent changes SKIN: No rash or itching CARDIOVASCULAR: No chest pain, syncope, palpitations, or edema RESPIRATORY: No SOB or cough GASTROINTESTINAL: No nausea, vomiting or abdominal pain NEUROLOGICAL: No headaches or weakness ENDOCRINE: No cold or heat intolerance GENITOURINARY: No urgency or frequency of urination MUSCULOSKELETAL: No back pain or joint pain LYMPHATICS: No enlarged lymph nodes PSYCHIATRIC: No anxiety or depression Physical Exam Physical Exam GEN.: Comfortable laying with wedge between legs, No apparent distress. Alert and oriented. HEENT: Head is normocephalic, atraumatic NECK: Supple. LUNGS: Clear to auscultation. HEART: RRR, S1, S2 present. Peripheral pulses intact ABDOMEN: Soft, nontender. Positive bowel sounds. EXTREMITIES: Without any cyanosis. NEUROLOGIC: Normal speech, normal tone PSYCHIATRIC: Normal affect, normal mood. SKIN: No ulcerations Vitals Vitals Vital Signs Date Time Temp Pulse Resp B/P (MAP) Pulse Ox O2 Delivery O2 Flow Rate FiO2 12/20/18 11:00 98.1 91 18 172/98 (122) 97 Room Air 98.1 12/20/18 09:20 1.0 Labs Labs Laboratory Tests Test 12/20/18 02:20 White Blood Count 5.1 x10^3/uL (4.0-11.0) Red Blood Count 3.21 x10^6/uL (4.30-5.70) Hemoglobin 10.5 g/dL (13.0-17.5) Hematocrit 30.3 % (39.0-53.0) Mean Corpuscular Volume 95 fL (79-100) Mean Corpuscular Hemoglobin 33 pg (25-35) Mean Corpuscular Hemoglobin Concent 35 g/dL (31-37) Red Cell Distribution Width 25.4 % (11.5-14.5) Platelet Count 240 x10^3/uL (140-400) Neutrophils (%) (Auto) 50 % (31-73) Lymphocytes (%) (Auto) 25 % (24-48) Monocytes (%) (Auto) 18 % (0-9) Eosinophils (%) (Auto) 6 % (0-3) Basophils (%) (Auto) 2 % (0-3) Neutrophils # (Auto) 2.5 x10^3uL (1.8-7.7) Lymphocytes # (Auto) 1.3 x10^3/uL (1.0-4.8) Monocytes # (Auto) 0.9 x10^3/uL (0.0-1.1) Eosinophils # (Auto) 0.3 x10^3/uL (0.0-0.7) Basophils # (Auto) 0.1 x10^3/uL (0.0-0.2) Platelet Estimate Adequate (ADEQUATE) Hypochromasia Slight Anisocytosis Marked Sodium Level 129 mmol/L (136-145) Potassium Level 3.8 mmol/L (3.5-5.1) Chloride Level 94 mmol/L (98-107) Carbon Dioxide Level 27 mmol/L (21-32) Anion Gap 8 (6-14) Blood Urea Nitrogen 5 mg/dL (8-26) Creatinine 0.9 mg/dL (0.7-1.3) Estimated GFR (Cockcroft-Gault) 87.6 BUN/Creatinine Ratio 6 (6-20) Glucose Level 109 mg/dL (70-99) Calcium Level 8.4 mg/dL (8.5-10.1) Total Bilirubin 0.4 mg/dL (0.2-1.0) Aspartate Amino Transf (AST/SGOT) 27 U/L (15-37) Alanine Aminotransferase (ALT/SGPT) 18 U/L (16-63) Alkaline Phosphatase 102 U/L (46-116) Total Protein 7.0 g/dL (6.4-8.2) Albumin 3.0 g/dL (3.4-5.0) Albumin/Globulin Ratio 0.8 (1.0-1.7) Laboratory Tests Test 12/20/18 02:20 White Blood Count 5.1 x10^3/uL (4.0-11.0) Red Blood Count 3.21 x10^6/uL (4.30-5.70) Hemoglobin 10.5 g/dL (13.0-17.5) Hematocrit 30.3 % (39.0-53.0) Mean Corpuscular Volume 95 fL (79-100) Mean Corpuscular Hemoglobin 33 pg (25-35) Mean Corpuscular Hemoglobin Concent 35 g/dL (31-37) Red Cell Distribution Width 25.4 % (11.5-14.5) Platelet Count 240 x10^3/uL (140-400) Neutrophils (%) (Auto) 50 % (31-73) Lymphocytes (%) (Auto) 25 % (24-48) Monocytes (%) (Auto) 18 % (0-9) Eosinophils (%) (Auto) 6 % (0-3) Basophils (%) (Auto) 2 % (0-3) Neutrophils # (Auto) 2.5 x10^3uL (1.8-7.7) Lymphocytes # (Auto) 1.3 x10^3/uL (1.0-4.8) Monocytes # (Auto) 0.9 x10^3/uL (0.0-1.1) Eosinophils # (Auto) 0.3 x10^3/uL (0.0-0.7) Basophils # (Auto) 0.1 x10^3/uL (0.0-0.2) Platelet Estimate Adequate (ADEQUATE) Hypochromasia Slight Anisocytosis Marked Sodium Level 129 mmol/L (136-145) Potassium Level 3.8 mmol/L (3.5-5.1) Chloride Level 94 mmol/L (98-107) Carbon Dioxide Level 27 mmol/L (21-32) Anion Gap 8 (6-14) Blood Urea Nitrogen 5 mg/dL (8-26) Creatinine 0.9 mg/dL (0.7-1.3) Estimated GFR (Cockcroft-Gault) 87.6 BUN/Creatinine Ratio 6 (6-20) Glucose Level 109 mg/dL (70-99) Calcium Level 8.4 mg/dL (8.5-10.1) Total Bilirubin 0.4 mg/dL (0.2-1.0) Aspartate Amino Transf (AST/SGOT) 27 U/L (15-37) Alanine Aminotransferase (ALT/SGPT) 18 U/L (16-63) Alkaline Phosphatase 102 U/L (46-116) Total Protein 7.0 g/dL (6.4-8.2) Albumin 3.0 g/dL (3.4-5.0) Albumin/Globulin Ratio 0.8 (1.0-1.7) Images Images PROCEDURE: HIP LEFT 2V WITH PELVIS AP pelvis and AP lateral left hip x-rays HISTORY: Left hip dislocation. FINDINGS: Left hip arthroplasty, there is superior dislocation of the femoral head prosthesis lateral of the iliac crest above the acetabular cup prosthesis. No periprosthetic fracture. Remainder of the imaged pelvis is intact. IMPRESSION: Left hip dislocation. 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
[2018-12-20] MEDS ORDERED: OXYC15TA PO (12:17)
--- NOTE | 2018-12-20 13:03 | PDOC3 ---
Discharge Summary [facility] Date of Admission: Dec 20, 2018 Discharge Date: Dec 20, 2018 Admitting Diagnosis left hip dislocation Final Diagnosis same CONSULTS Dr. Frey Procedures closed reduction of left hip posterior dislocation under general anesthasia Brief Hospital Course Mr. Peñaloza is a 53 old who presented with pain from acutely dislocating his left hip which was replaced 11/24/[address] [facility] by Dr. Contreras, attempts to reduce it in the ER failed and he required general sedation in the OR and was seen post procedure and comfortable, he has a chronic mild hyponatremia wheic is stable, his is hypertensive but BP was controlled. He required narcotic pain meds Patient History: Unknown Disposition home CONDITION AT DISCHARGE: Improved Diet cardiac Scheduled Carvedilol (Coreg), 25 MG PO BIDWMEALS Gabapentin (Gabapentin), 300 MG PO TID, (Reported) Follow Up 1-2 weeks Patient Instructions he will avoid bending and keep wedge between legs Maryam DASILVA MD Dec 20, 2018 13:03
[2018-12-20] MEDS ORDERED: GABAPENTIN 300 MG CAPSULE. PO SCH (14:00)
--- NOTE | 2018-12-20 15:45 | NUR ---
Discharge teaching completed. Teaching done on follow-up, care of left hip. abductor cushion, home medications, pain Rx. IV sites discontinued without difficulty. Patient discharged to home with spouse. He was escorted out via w/c by staff.
[2018-12-20] MEDS ORDERED: CARVEDILOL 12.5 MG TABLET. PO SCH (17:00)
--- NOTE | 2018-12-22 06:34 | EKG ---
[facility] [address] [place] [address] Test Date: 2018-12-20 Test Time: 02:39:28 Pat Name: TACHO VILLATORO Department: Room: Gender: M Shift Mgr: : 1965 Requested By: LACHO CONWAY Order Number: [id number] Reading MD: Measurements Intervals [place] Rate: 91 P: VA: QRS: -10 QRSD: 98 T: 29 QT: 388 QTc: 479 Interpretive Statements ACCELERATED JUNCTIONAL RHYTHM LEFTWARD AXIS PROLONGED QT ABNORMAL ECG RI6.01 Unconfirmed report No previous ECG available for comparison
== END 2018-12-20 17:02 | disposition home or self-care (01) | DRG 560 ==
LOC: ER 01:03 → 4 NORTH 02:12
PROVIDERS: ADMIT Family Medicine; ATTEND Family Medicine
PROC: 0SWBXJZ Revision of Synthetic Substitute in Left Hip Joint, External Approach (ICD-10-PCS; principal; 2018-12-20 08:00)
DX: T84.021A Dislocation of internal left hip prosthesis, initial encounter (principal); E87.1 Hypo-osmolality and hyponatremia; G62.1 Alcoholic polyneuropathy; I10 Essential (primary) hypertension; M15.9 Polyosteoarthritis, unspecified; Y79.2 Prosthetic and other implants, materials and accessory orthopedic devices associated with adverse incidents; Y83.8 Other surgical procedures as the cause of abnormal reaction of the patient, or of later complication, without mention of misadventure at the time of the procedure; Y92.89 Other specified places as the place of occurrence of the external cause; Z82.49 Family history of ischemic heart disease and other diseases of the circulatory system; Z98.1 Arthrodesis status; Z88.8 Allergy status to other drugs, medicaments and biological substances
CPT/HCPCS: 27265; 36415; 71045; 73501; 73502; 80053; 85025; 93005; 96361; 96374; A7015; J0330; J1885; J2001; J2060; J2270; J2405; J2704; J3010; J7030; J7120; 99285-25

== ENCOUNTER → 2020-11-03 | Outpatient (CLI) | payer BC, MEDICARE ==
[~2020-11-03] MED LIST changes: +OXYC15TA3 PO; +POTA20TA4 PO; -POTA20TA82 PO
--- NOTE | 2020-11-03 15:47 | KCIC ---
Bilateral diagnostic digital mammograms: Reason for examination: Bilateral breast lumps with sensitivity behind the nipple for a few months. B aseline exam. Interpretation was made with the benefit of CAD. The skin and nipples show no abnormalities. No abnormal axillary lymph nodes are seen. The breast par enchyma shows scattered fibroglandular density. (Breast density: Category B.) There is asymmetric pasteurizer ecomastia, more right greater than left with no abnormal calcification seen. There are no other domin ant masses, suspicious calcifications or architectural distortions. Impression: Asymmetric gynecomastia, right greater than left. Ultrasound to follow. BI-RADS Category 0: Incomplete. Needs additional imaging evaluation. Bilateral breast ultrasound: Ultrasound examination was performed bilaterally of the breasts and axilla. In the retroareolar 9:00 position of the right breast, there is a 4.1 x 1.2 x 2.4 cm area of decrease d echogenicity. This appears to be slightly more nodular than typical gynecomastia. No other focal ab normalities are seen. No abnormal appearing lymph nodes are seen in the right axilla. In the retroareolar position of the left breast, there is a 1.4 x 1.7 x 0.4 cm focus of decreased ech ogenicity. No other focal lesions are seen in the breast. No abnormal appearing lymph nodes are seen in the axilla. IMPRESSION: Bilateral gynecomastia, right greater than left. The area of right gynecomastia however shows more fo micaela nodularity and further evaluation with ultrasound-guided biopsy is recommended. BI-RADS Category 4: Suspicious. These findings were discussed with the patient and Dr. Golden's medical aide was notified about th iveth findings with a message left on her answering machine at 3:44 PM on 11/03/2020. "Our facility is accredited by the [employer] Mammography [employer]." This patient's information has been entered into a reminder system for the patient to be notified wit h the results of her examination and a target date for the next mammogram. Electronically signed by: Le Ellison MD (11/03/2020 3:45 PM) [email or web address]
--- NOTE | 2020-11-03 15:47 | KCIC ---
Bilateral diagnostic digital mammograms: Reason for examination: Bilateral breast lumps with sensitivity behind the nipple for a few months. B aseline exam. Interpretation was made with the benefit of CAD. The skin and nipples show no abnormalities. No abnormal axillary lymph nodes are seen. The breast par enchyma shows scattered fibroglandular density. (Breast density: Category B.) There is asymmetric medicaid analyst ecomastia, more right greater than left with no abnormal calcification seen. There are no other domin ant masses, suspicious calcifications or architectural distortions. Impression: Asymmetric gynecomastia, right greater than left. Ultrasound to follow. BI-RADS Category 0: Incomplete. Needs additional imaging evaluation. Bilateral breast ultrasound: Ultrasound examination was performed bilaterally of the breasts and axilla. In the retroareolar 9:00 position of the right breast, there is a 4.1 x 1.2 x 2.4 cm area of decrease d echogenicity. This appears to be slightly more nodular than typical gynecomastia. No other focal ab normalities are seen. No abnormal appearing lymph nodes are seen in the right axilla. In the retroareolar position of the left breast, there is a 1.4 x 1.7 x 0.4 cm focus of decreased ech ogenicity. No other focal lesions are seen in the breast. No abnormal appearing lymph nodes are seen in the axilla. IMPRESSION: Bilateral gynecomastia, right greater than left. The area of right gynecomastia however shows more fo micaela nodularity and further evaluation with ultrasound-guided biopsy is recommended. BI-RADS Category 4: Suspicious. These findings were discussed with the patient and Dr. Golden's medical administrator was notified about th iveth findings with a message left on her answering machine at 3:44 PM on 11/03/2020. "Our facility is accredited by the [employer] Mammography [employer]." This patient's information has been entered into a reminder system for the patient to be notified wit h the results of her examination and a target date for the next mammogram. Electronically signed by: Le Ellison MD (11/03/2020 3:45 PM) [email or web address]
== END ==
LOC: KCIC MAMMO 13:17
PROVIDERS: ATTEND Family Medicine
DX: N62 Hypertrophy of breast (principal); N63.13 Unspecified lump in the right breast, lower outer quadrant
CPT/HCPCS: 76641; 77066

== ENCOUNTER → 2020-11-07 | Outpatient (CLI) | payer BC, MEDICARE ==
[~2020-11-07] MED LIST changes: +IOHEXOL 180 MG/ML 10 ML VIAL. ONE; +OXYC30TA64 PO; +methylPREDNISolone ACETATE 40 MG/ML VIAL. ONE; +methylPREDNISolone ACETATE 80 MG/ML VIAL. ONE
--- NOTE | 2020-11-07 16:10 | PDOC1 ---
INITIAL PAIN CONSULT DATE OF SERVICE: DOS: DATE: 11/07/20 TIME: 15:59 CHIEF COMPLAINT: Chief Complaint: Low back and bilateral lower extremity pain HISTORY OF PRESENT ILLNESS: 55 presents history of pain low back bilateral lower extremities somewhat worse in the left than the right but present bilaterally for many years but worse over the past 6 months not the result of any specific injury or accident that he is aware of. Patient reports now the pain is in the low back rating to bilateral lower extremities again worse on the left side than the right also some significant history of multiple hip surgeries and replacement with revision on the left side as well. Patient reports pain is back and legs is constant is stabbing and shooting in quality radiating the lower extremities worse with walking standing weightbearing is waking from sleep least 4-5 times a night patient reports it can affect his bowel bladder control but no incontinence just increased frequency patient reports he has difficulty walking because the pain uses a cane or walker and he has a walker with him today. Patient is taking oxycodone as well as gabapentin both of which do decrease the pain but only moderately patient reports he has had multiple therapies in the past physical therapy chiropractic treatments without significant long-term decrease in pain patient rates his disability rating 0-10 10 being worst is an 8 with family home responsibilities 10 with recreation 8 with social activity occupation sexual behavior life support activities and self-care activities. Patient reports no loss of motor function but significant fatigability especially with standing and weightbearing even with the use of his walker. Patient also reports history of rotator cuff tear in the right shoulder with repair twice and rotator cuff tear in the left shoulder as well as significant shoulder pain especially when using his walker putting his weight on his upper extremities. PAST MEDICAL HISTORY: PMH: Arthritis, hypertension, neuropathy PREVIOUS SURGERIES: Past Surgical Hx: Appendectomy, right shoulder surgery, total hip replacement, hip revision Jul, left ankle fusion CURRENT MEDICATIONS: Current Meds: Active Scripts Medications Dose Route/Sig Max Daily Dose Days Date Category Oxycontin (Oxycodone HCl) 30 Mg Tab.er.12h 1 Tab PO TID MDD 3 Tablet(s) 30 11/07/20 Reported Coreg (Carvedilol) 25 Mg Tablet 25 Mg PO BIDWMEALS 30 10/30/18 Rx Gabapentin 300 Mg Capsule 300 Mg PO TID 10/27/18 Reported ALLERGIES; Allergies: Coded Allergies: clarithromycin (Verified Allergy, Intermediate, 4/15/19) FAMILY HISTORY: Family Hx: No known history SOCIAL HISTORY: Social Hx: Patient drinks alcohol once or twice a week does not smoke not use any illegal illicit or recreational drugs is with the spouse lives locally in [facility] REVIEW OF SYSTEMS: ROS: Positive for those items mentioned in history of present illness, all systems are reviewed, otherwise negative ,and are complete full and well-documented on patient's chart. PHYSICAL EXAM: VS: Blood pressure is 152/102 pulse 77 respiration 16 temperature is 90.1 F height is 6 foot 5 inches weight is 243 pounds PE: PHYSICAL EXAMINATION: GENERAL: The patient is awake, alert, oriented, appropriate, very pleasant demeanor HEENT: Shows normocephalic, atraumatic. Extraocular movements are intact and symmetrical. Oral cavity: Mucous membranes moist and pink. Dentition is intact. NECK: Shows anterior throat supple without palpable lymphadenopathy noted. Swallow reflex symmetrical. CHEST: Shows normal on inspection. Breath sounds are clear bilaterally, distant but no rales rhonchi or wheezes auscultated. HEART: Shows S1, S2 clear. No murmurs auscultated. ABDOMEN: Soft, nontender, nondistended, obese. No palpable organomegaly is noted. No rebound or guarding demonstrated. BACK: Shows spine grossly in the midline. Normal-appearing cervical lordotic curvature. There is slightly increased thoracic kyphosis, some minor flattening of the lumbar lordotic curvature. Lumbar paraspinous muscles show symmetrical on inspection, on palpation shows some moderate tenderness diffusely throughout the upper, middle and lower distribution of the paraspinous muscles bilaterally and also into the lower thoracic paraspinous musculature, firm and tender, but without specific trigger points, without radiation of pain. The patient has good rotational motion of the lumbar spine, both laterally as well as extension and flexion without significant difficulty. No tenderness over the spinous processes, sacrum or sacroiliac regions. EXTREMITIES: Lower extremities show deep tendon reflexes 1+ in the patellar and tendo calcaneus tendons. Motor exam is 4 on a scale of 5 with right dorsiflexion, extension, quadriceps and hamstring flexion and 4/5 on the left. Peripheral pulses are 1 posterior tibial. No peripheral edema is noted bilaterally. Lower extremities are warm and dry to touch, equal in color and appearance.The patient is able to stand but needs help getting up with the arms of the chair and is very unstable on his feet using a walker to ambulate today. SKIN: Shows warm and dry, good turgor. No edema. No sores, rashes or bruising throughout. IMPRESSION: Impression: 55-year-old male with approximate 6-month history increasing pain low back bilateral lower extremities left greater than right. Arthritis Hypertension Multiple hip surgeries with revision and replacement on the left Plan: Options were discussed with the patient including conservative medical management physical therapies interventional techniques. Patient would like to pursue interventional techniques. We discussed a lumbar epidural steroid injection using descriptions as well as anatomical models to describe the procedure. Risks were discussed including but not limited to: Bleeding, infection, possibility of epidural hematoma and subsequent neurological compromise, dural puncture, headaches, spinal cord and/or nerve damage, side effects of steroid medication, and poor results regarding pain control. Patient understands and wished to proceed. Patient will return to clinic in approximate 3 weeks for follow-up, was counseled as return appointment activity level and side effects to be aware of. Procedure is lumbar epidural steroid injection under local anesthetic using sterile prep and drape at the L4-5 level using C-arm fluoroscopic guidance in both AP and lateral views medications injected is 120 mg Depo-Medrol + 10 mL preservative-free normal saline and 2 mL contrast- condition at discharge is st able patient tolerated procedure well had no complications. GLEN NAQVI MD Nov 07, 2020 16:10
--- NOTE | 2020-11-07 16:10 | PDOC4 ---
PROCEDURE Procedure Patient was consented for lumbar epidural steroid injection. Risks were dis cussed including but not limited to: Bleeding, infection, possibility of epidural hematoma and subsequent neurological compromise, dural puncture, headaches, spinal cord and/or nerve damage, side effects of steroid medication, and poor results regarding pain control. Patient understands and wished to proceed. Procedure is lumbar epidural steroid injection under local anesthetic using sterile prep and drape at the L4-5 level using C-arm fluoroscopic guidance in both AP and lateral views medications injected is 120 mg Depo-Medrol + 10 mL preservative-free normal saline and 2 mL contrast- condition at discharge is stable patient tolerated procedure well had no complications. GLEN NAQVI MD Nov 07, 2020 16:10
== END | disposition home or self-care (01) ==
LOC: PNCL 13:15
PROVIDERS: ATTEND Anesthesiology
DX: M54.5 Low back pain (principal); M79.605 Pain in left leg; M79.604 Pain in right leg; M19.90 Unspecified osteoarthritis, unspecified site; I10 Essential (primary) hypertension; Z72.89 Other problems related to lifestyle; Z79.899 Other long term (current) drug therapy; Z98.890 Other specified postprocedural states; Z88.8 Allergy status to other drugs, medicaments and biological substances
CPT/HCPCS: 62323; J1030; J1040; Q9965

== ENCOUNTER → 2020-12-08 | Outpatient (CLI) | payer BC, MEDICARE ==
--- NOTE | 2020-12-08 13:46 | PDOC ---
Progress Note - Pain Clinic Date of Service: DOS: DATE: 12/08/20 TIME: 13:44 Diagnosis: Dx: Lumbar radiculopathy with lumbar degenerative disc disease Bilateral shoulder joint pain with osteoarthritis History or Present Illness: HPI: 55-year-old male returns follow-up status post lumbar epidural steroid injection x1. Patient reports about 100% improvement for the first 10 days or so then the pain gradually returned over the next week following that very gradually in the low back itself patient reports occasionally rating the posterior gluteus posterior lateral thighs anterior thighs but only rarely patient reports that time he was doing much better with distance walking doing household activities travel with greater ease and comfort and "felt like a new person" patient rep orts is beginning to awaken him from sleep again about every once for 4 to 6 hours but otherwise doing much better overall. Patient reports pain is still aching and sharp tight in the back can be severe and unbearable with extended walking standing can be constant with standing as well and stabbing in quality. Patient rated as a 10 on scale 10 is worse over this past week 9 on average 7 its least is a 7 today. Patient reports no new motor or sensory deficits no new bowel or bladder incontinence or other complaints. Patient continued to have pain in the bilateral shoulders but this is secondary to his low back and legs. Physical Exam: VS: Blood pressure is 153/95 pulse 88 respirations 18 temperature 90.1 F, weight is 252 pounds PE: PHYSICAL EXAMINATION: GENERAL: The patient is awake, alert, oriented, appropriate, very pleasant demeanor HEENT: Shows normocephalic, atraumatic. Extraocular movements are intact and symmetrical. Oral cavity: Mucous membranes moist and pink. Dentition is intact. NECK: Shows anterior throat supple without palpable lymphadenopathy noted. Swallow reflex symmetrical. CHEST: Shows normal on inspection. Breath sounds are clear bilaterally, no rales rhonchi wheezes auscultated. HEART: Shows S1, S2 clear. No murmurs auscultated. ABDOMEN: Soft, nontender, nondistended, obese. No palpable organomegaly is noted. No rebound or guarding demonstrated. BACK: Shows spine grossly in the midline. Normal-appearing cervical lordotic c urvature. There is slightly increased thoracic kyphosis, some minor flattening of the lumbar lordotic curvature. Lumbar paraspinous muscles show symmetrical on inspection, on palpation shows some moderate tenderness diffusely throughout the upper, middle and lower distribution of the paraspinous muscles, but without specific trigger points, without radiation of pain. The patient has good rotational motion of the lumbar spine, both laterally as well as extension and flexion without significant difficulty. EXTREMITIES: Lower extremities show deep tendon reflexes 1 in the patellar and tendo calcaneus tendons. Motor exam is 4 on a scale of 5 with right dorsiflexion, extension, quadriceps and hamstring flexion and 4/5 on the left. Peripheral pulses are 1+ posterior tibial. No peripheral edema is noted bilaterally. Lower extremities are warm and dry to touch, equal in color and appearance. SKIN: Shows warm and dry, good turgor. No edema. No sores, rashes or bruising throughout. Procedure: Procedure: Options discussed with the patient. Patient's old chart was reviewed his current medication regimen updated current review of systems updated today as well. We will proceed with a second in the series lumbar epidural steroid injection stable fluoroscopic guidance. Risks were discussed including but not limited to: Bleeding, infection, possibility of epidural hematoma and subsequent neurological compromise, dural puncture, headaches, spinal cord and/or nerve damage, side effects of steroid medication, and poor results regarding pain control. Patient understands and wished to proceed. Patient will return to the clinic in approximate 2 weeks for follow-up, was counseled as return appointment activity level and side effects to be aware of. Medication Injected: Med Injected: Procedure is lumbar epidural steroid injection under local anesthetic using sterile prep and drape at the L4-5 level using C-arm fluoroscopic guidance in both AP and lateral views medications injected is 120 mg Depo-Medrol +10mL preservative-free normal saline and 2 mL contrast- condition at discharge is stable patient tolerated procedure well had no complications. Condition at Discharge: Condition at Discharge: Condition at discharge stable, patient tolerated the procedure well and had no complications. GLEN NAQVI MD December 08, 2020 13:46
--- NOTE | 2020-12-08 13:47 | PDOC4 ---
PROCEDURE Procedure Patient was consented for lumbar epidural steroid injection. Risks were dis cussed including but not limited to: Bleeding, infection, possibility of epidural hematoma and subsequent neurological compromise, dural puncture, headaches, spinal cord and/or nerve damage, side effects of steroid medication, and poor results regarding pain control. Patient understands and wished to proceed. Procedure is lumbar epidural steroid injection under local anesthetic using sterile prep and drape at the L4-5 level using C-arm fluoroscopic guidance in both AP and lateral views medications injected is 120 mg Depo-Medrol +10mL preservative-free normal saline and 2 mL contrast- condition at discharge is stable patient tolerated procedure well had no complications. GLEN NAQVI MD December 08, 2020 13:47
== END | disposition home or self-care (01) ==
LOC: PNCL 12:55
PROVIDERS: ATTEND Anesthesiology
DX: M51.16 Intervertebral disc disorders with radiculopathy, lumbar region (principal); M19.012 Primary osteoarthritis, left shoulder; M19.011 Primary osteoarthritis, right shoulder; I10 Essential (primary) hypertension; Z72.89 Other problems related to lifestyle; Z79.899 Other long term (current) drug therapy; Z98.890 Other specified postprocedural states; Z88.8 Allergy status to other drugs, medicaments and biological substances
CPT/HCPCS: 62323; J1030; J1040; Q9965

== ENCOUNTER → 2021-01-09 | Outpatient (CLI) | payer BC, MEDICARE ==
--- NOTE | 2021-01-09 13:52 | PDOC4 ---
Procedure Note: Procedure Note: Patient was consented for lumbar epidural steroid injection. Risks were discussed including but not limited to: Bleeding, infection, possibility of epidural hematoma and subsequent neurological compromise, dural puncture, headaches, spinal cord and/or nerve damage, side effects of steroid medication, and poor results regarding pain control. Patient understands and wished to proceed. Procedure is lumbar epidural steroid injection under local anesthetic using sterile prep and drape at the L4-5 level using C-arm fluoroscopic guidance in both AP and lateral views medications injected is 120 mg Depo-Medrol +10mL preservative-free normal saline and 2 mL contrast- condition at discharge is stable patient tolerated procedure well had no complications. GLEN NAQVI MD Jan 09, 2021 13:52
--- NOTE | 2021-01-09 14:42 | PDOC ---
Progress Note - Pain Clinic Date of Service: DOS: DATE: 01/09/21 TIME: 14:38 Diagnosis: Dx: Lumbar radiculopathy with lumbar degenerative disc disease Bilateral shoulder joint pain with osteoarthritis Left greater trochanteric bursitis History or Present Illness: HPI: 55-year-old male returns for follow-up status post lumbar epidural steroid injection x2 most recently December 08, 2020, with approximately 95% improvement for about 1 month pain is returning down the low back and left greater than right lower extremities patient reports it is stabbing and constant the low back aching is sharp and tight and shooting more in the left lower extremity and the right but present bilaterally patient rates it as a 10 on scale 10 is worse over the past week 8 on average 5 its least is an 8 today. Patient reports no new motor or sensory deficits no new bowel or bladder incontinence or other complaints. Physical Exam: VS: Blood pressure is 165/19 pulse 111 respirations are 18 temperature is 97.8 F height is 6 feet 5 inches weight is 235 pounds PE: PHYSICAL EXAMINATION: GENERAL: The patient is awake, alert, oriented, appropriate, very pleasant in demeanor HEENT: Shows normocephalic, atraumatic. Extraocular movements are intact and symmetrical. Oral cavity: Mucous membranes moist and pink. NECK: Shows anterior throat supple without palpable lymphadenopathy noted. Swallow reflex symmetrical. CHEST: Shows normal on inspection. Breath sounds are clear bilaterally. HEART: Shows S1, S2 clear. No murmurs auscultated. ABDOMEN: Soft, nontender, nondistended, obese. No palpable organomegaly is noted. No rebound or guarding demonstrated. BACK: Shows spine grossly in the midline. Normal-appearing cervical lordotic curvature. There is increased thoracic kyphosis, some minor flattening of the lumbar lordotic curvature. Lumbar paraspinous muscles show symmetrical on inspection, on palpation shows some moderate tenderness diffusely throughout the upper, middle and lower distribution of the paraspinous muscles without specific trigger points, without radiation of pain. The patient has good rotational motion of the lumbar spine, both laterally as well as extension and flexion without significant difficulty. No tenderness over the spinous processes, sacrum or sacroiliac regions. EXTREMITIES: Lower extremities show deep tendon reflexes 1+ in the patellar and tendo calcaneus tendons. Motor exam is 4 on a scale of 5 with right dorsiflexion, extension, quadriceps and hamstring flexion and 4/5 on the left. Peripheral pulses are 1+ posterior tibial. No peripheral edema is noted bilaterally. Lower extremities are warm and dry to touch, equal in color and appearance. SKIN: Shows warm and dry, good turgor. No edema. No sores, rashes or bruising throughout. Procedure: Procedure: Options were discussed with the patient. Patient's old chart was reviewed his current medication regimen updated current review of systems updated today as well. We will proceed with a third in the series lumbar epidural steroid exam fluoroscopic guidance. Risks were discussed including but not limited to: Bleeding, infection, possibility of epidural hematoma and subsequent neurological compromise, dural puncture, headaches, spinal cord and/or nerve damage, side effects of steroid medication, and poor results regarding pain control. Patient understands and wished to proceed. Patient will return to the clinic in approximately 4 weeks for follow-up, was counseled as return appointment active level and side effects to be aware of. Medication Injected: Med Injected: Procedure is lumbar epidural steroid injection under local anesthetic using sterile prep and drape at the L4-5 level using C-arm fluoroscopic guidance in both AP and lateral views medications injected is 120 mg Depo-Medrol +10mL preservative-free normal saline and 2 mL contrast- condition at discharge is stable patient tolerated procedure well had no complications. Condition at Discharge: Condition at Discharge: Condition at discharge stable, patient already procedure well and had no complications. GLEN NAQVI MD Jan 09, 2021 14:42
== END | disposition home or self-care (01) ==
LOC: PNCL 12:55
PROVIDERS: ATTEND Anesthesiology
DX: M51.16 Intervertebral disc disorders with radiculopathy, lumbar region (principal); M19.012 Primary osteoarthritis, left shoulder; M19.011 Primary osteoarthritis, right shoulder; M70.62 Trochanteric bursitis, left hip; I10 Essential (primary) hypertension; Z79.899 Other long term (current) drug therapy; Z98.890 Other specified postprocedural states; Z72.89 Other problems related to lifestyle; Z88.1 Allergy status to other antibiotic agents
CPT/HCPCS: 62323; J1030; J1040; Q9965

== ENCOUNTER → 2021-01-12 | Outpatient (CLI) | payer BC, MEDICARE ==
[~2021-01-12] MED LIST changes: -IOHEXOL 180 MG/ML 10 ML VIAL. ONE; +LIDOCAINE 1% Multi-Dose 20 ML VIAL. ID ONE; -methylPREDNISolone ACETATE 40 MG/ML VIAL. ONE; -methylPREDNISolone ACETATE 80 MG/ML VIAL. ONE
--- NOTE | 2021-01-12 12:22 | RAD ---
EXAM: Sonographic guided right breast biopsy. HISTORY: 55-year-old male presents for sonographic guided biopsy of the palpable abnormality and criss esponding with findings on a mammogram and sonogram performed 11/01/2020. TECHNIQUE: The risks of the procedure were discussed with the patient and written and verbal consent was obtained. A timeout was performed. Sonographic imaging of the right breast was performed and the finding of concern within the subareolar location was identified. The skin in this location was steri magdiel prepped, draped and infiltrated with 1 percent lidocaine. Multiple core samples were obtained th rough the lesion of concern with sonographic guidance. A biopsy clip was not placed due due to the pereira bareolar location of the region of concern and the absence of additional findings within the right br east to merit localization with a biopsy clip at the site of biopsy. A sterile bandage placed. Manual compression was maintained until hemostasis achieved. The patient tolerated the procedure without co mplication. IMPRESSION: Sonographic guided biopsy of a hypoechoic lesion within the subareolar aspect of the righ t breast. An addendum to this report will be submitted when pathology results are available. Electronically signed by: Viri Mcdaniels MD (01/12/2021 12:20 PM) [id number]
--- NOTE | 2021-01-13 17:23 | PATHOLOGY ---
[facility] Accession Number: [id number] . 01 Material submitted: . breast - RIGHT BREAST 900 RETRO 2.6X2.3X.85CM. Modifiers: right, 9:00, RETRO . 01 Clinical history: . RIGHT BREAST BIOPSY NO IRRADIATION THERAPY GIVEN OBTAINED: 11:06AM FORMALIN: 11:07AM RIGHT MASS . 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 (JPM:marcos; 01/13/2021) MBR 01/13/2021 1404 Local . 02 Comment: Sections of the right breast 9:00 retro needle biopsy reveal segments of breast tissue showing stromal fibrosis. There are a few ducts coursing through the fibrous stroma which show focal mild duct ectasia. There is no evidence of malignancy. (JPM:marcos; 01/13/2021) . 02 Electronically signed: . Galen Yoder MD, Pathologist NPI- [id number] . 01 Gross description: . Received in formalin labeled "Brown, Donny and right breast 9:00 retro". Received are 3 white-yellow fibroadipose breast cores ranging from 1.2-1.4 cm in length and 0.1-0.2 cm in diameter. The specimen is entirely submitted in cassette A1. The specimen was collected on 01/12/2021 at 11:06 AM and placed into formalin at 11:07 AM. The specimen will be removed from formalin on 01/12/2021 at 11:40 PM. The specimen will be in formalin more than 6 hours and less than 72 hours.(BLJ; 01/12/2021) BLJ/BLJ 01/13/2021 1402 Local . 02 Pathologist provided ICD-10: N60.31, N60.42 . 02 CPT . 440852 Specimen Comment: A courtesy copy of this report has been sent to [phone], [phone] Specimen Comment: [id number] Specimen Comment: Report sent to / DR DASILVA Performed at: 01 [facility] [address] [place] [address] [address], [place] [id number] MD Sai Farias MD Phone: [phone] [facility]formed at: [facility] [address] [place], [place] [id number] MD Galen Yoder MD Phone: [phone]
== END | disposition home or self-care (01) ==
LOC: US 10:25
PROVIDERS: ATTEND Family Medicine
DX: N63.13 Unspecified lump in the right breast, lower outer quadrant (principal); R92.8 Other abnormal and inconclusive findings on diagnostic imaging of breast; I10 Essential (primary) hypertension; M19.90 Unspecified osteoarthritis, unspecified site; Z79.899 Other long term (current) drug therapy; Z98.890 Other specified postprocedural states; Z88.1 Allergy status to other antibiotic agents; Z72.89 Other problems related to lifestyle
CPT/HCPCS: 19083; 88305; J3490